=== PATIENT | male | born 1935 | race Caucasian/White ===

== ENCOUNTER → 2016-08-17 | Outpatient (CLI) | payer OTHER, MEDICARE | LOC: MMPC 09:00 | PROVIDERS: ATTEND Family Medicine | DX: R06.02 Shortness of breath (principal); R63.0 Anorexia | CPT/HCPCS: 99214; G0463 ==

== ENCOUNTER 2016-09-09 10:04 | Emergency (ER) | payer OTHER, MEDICARE ==
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
[2016-09-09 10:45] VITALS: RESP 16; TEMP 98.8
[2016-09-09 11:37] LABS: BASOPHILS # (AUTO) 0.03 10*3/UL; BASOPHILS % (AUTO) 0.6 % (0-1); EOSINOPHILS % (AUTO) 2.1 % (0-8); HEMATOCRIT 37.3 % (42.0-52.0); HEMOGLOBIN 12.9 g/dL (14.0-18.0); IMM GRAN % (AUTO) 0.2 % (0-5); IMM GRAN# (AUTO) 0.01 10*3/UL; LYMPHOCYTES % (AUTO) 12.5 % (10-50); MEAN CORPUSCULAR HEMOGLOBIN 28.7 PG (27-31); MEAN CORPUSCULAR HGB CONC 34.6 g/dL (33-37); MEAN PLATELET VOLUME 9.3 FL (7.4-12.2); MONOCYTES % (AUTO) 12.5 % (5-15); NEUTROPHILS # (AUTO) 3.47 10*3/UL; NEUTROPHILS % (AUTO) 72.1 % (50-80); RDW COEFFICIENT OF VARIATION 15.1 % (11.5-14.5); RED BLOOD COUNT 4.49 10^6/uL (4.70-6.10); WHITE BLOOD COUNT 4.81 10^3/uL (4.8-10.8)
[2016-09-09 11:38] LABS: PLATELET MORPHOLOGY COMMENT NORMAL MORPHOLOGY (NORM)
[2016-09-09 11:49] LABS: BUN/CREATININE RATIO 12.5 (6-20); CALCIUM 8.9 mg/dL (8.7-10.7); CREATININE 0.8 mg/dL (0.70-1.50); POTASSIUM 4.3 meq/L (3.8-5.2)
[2016-09-09 12:03] LABS: BILIRUBIN,URINE NEGATIVE (NEG); CLARITY,URINE CLEAR (CLEAR); GLUCOSE, URINE (UA) NEGATIVE (NEG); LEUKOCYTE ESTERASE ,URINE MODERATE (NEG); NITRATE,URINE NEGATIVE (NEG); OCCULT BLOOD,URINE LARGE (NEG); PROTEIN,URINE 100 mg/dl (NEG); UROBILINOGEN,URINE 0.2 mg/dL (0.2)
[2016-09-09 12:08] LABS: SQUAMOUS EPITHELIAL CELL,UR RARE; URINE SAMPLE TYPE CATH SPECIMEN; WBC,URINE 20-30
[2016-09-09 12:09] LABS: BACTERIA,URINE MODERATE
== END 2016-09-09 13:38 | disposition home or self-care (01) ==
LOC: ER 10:04
DX: T83.038A Leakage of other urinary catheter, initial encounter (principal); T83.84XA Pain due to genitourinary prosthetic devices, implants and grafts, initial encounter; R00.2 Palpitations; Z86.718 Personal history of other venous thrombosis and embolism; Z79.01 Long term (current) use of anticoagulants
CPT/HCPCS: 36415; 80048; 81001; 85025; 87077; 87088; 87185; 87186; 87205; 99282

== ENCOUNTER → 2016-10-05 | Outpatient (CLI) | payer OTHER, MEDICARE ==
[2016-10-05 11:26] LABS: BILIRUBIN,URINE NEGATIVE (NEG); CLARITY,URINE Slightly Clo (CLEAR); GLUCOSE, URINE (UA) NEGATIVE (NEG); LEUKOCYTE ESTERASE ,URINE LARGE (NEG); NITRATE,URINE NEGATIVE (NEG); OCCULT BLOOD,URINE LARGE (NEG); PH,URINE 8.5 (5.0-8.5); PROTEIN,URINE 30 mg/dl (NEG); UROBILINOGEN,URINE 0.2 mg/dL (0.2)
[2016-10-05 11:41] LABS: URINE SAMPLE TYPE CATH SPECIMEN
[2016-10-05 11:42] LABS: BACTERIA,URINE MANY; RBC,URINE 15-20 /hpf; URINE CRYSTALS MODERATE; WBC,URINE 45-50
== END ==
LOC: MOB LAB 10:08
PROVIDERS: ATTEND Family Medicine
DX: R30.0 Dysuria (principal); R82.99 Other abnormal findings in urine; Z46.6 Encounter for fitting and adjustment of urinary device
CPT/HCPCS: 51702 ×2; 81001; 87077; 87088; 87186 ×2; G0463

== ENCOUNTER 2016-10-10 17:48 | Inpatient (IN) | payer OTHER, MEDICARE ==
[2016-10-10] MEDS ORDERED: Sodium Chloride 0.9% 1,000 ML PRIMARY IV ONE (19:05)
--- NOTE | 2016-10-10 19:19 | EKG ---
[address] [place] [address] Measurements Intervals [place] Rate: 63 P: 76 OK: 239 QRS: -46 QRSD: 116 T: 90 QT: 449 QTc: 456 Interpretive Statements SINUS RHYTHM WITH FIRST DEGREE AV BLOCK LEFT ANTERIOR FASCICULAR BLOCK POSSIBLE INFERIOR MYOCARDIAL INFARCTION PROBABLY OLD MODERATE T-WAVE ABNORMALITY, CONSIDER ANTERIOR ISCHEMIA Compared to ECG 07/24/2016 11:53:24 First degree AV block now present Left anterior fascicular block now present Myocardial infarct finding now present T-wave abnormality now present Possible ischemia now present Electronically Signed On 10-11-16 19:35:24 [facility] by Panfilo Kwon [email or web address]
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
--- NOTE | 2016-10-10 19:43 | PDOC ---
History and Physical - History of Present Illness History of Present Illness: Is a very nice 80-year-old gentleman known to our service admitted for UTI sometime back over from EMS with altered mental status around 3:00 in the afternoon he started looking out the window at a neighbor was counseling snow dark perseveration of conversation his said he kept on repeating the same phrases he became very combative and required around 8 people to restrain him Ativan and Haldol and Benadryl during his transportation is which is the main caregiver says there is no fever or chills no nausea no vomiting no diarrhea 7 indwelling Mott catheter and I believe was scheduled to go see urology. In the ER or I saw him the patient appears calm at present time we are starting to untie his restrictions he is alert oriented 3, operating following commands and his physical exam is basically negative I believe most likely UTI with infection as a source of his combativeness and most likely deterioration and dementia. Past Medical History Medical History: 1. Arrhythmias. 2. Depression. 3. GERD. 4. History of DVTs years ago. 5. History of orthostatic hypertension. 6. History of gout. 7. Hypothyroidism. 8. BPH for which he had surgery. 9. Diagnosed with DVT on 05/06/2015. 10. Coronary artery disease with CABG June 2015, stent in August of this year. 11. Chronic catheterization since 06/12/2016 Surgical History: 1. History of for surgery on his shoulder. 2. History of prostate surgery. 3. Left knee replacement. 4. Left hip replacement. 5. Cholecystectomy. 6. Status post CABG June 2015 Pertinent Family History: States there is heart disease in the family. Past Social History: Does not smoke or drink. for 20 years with his current . Has 6 children from prior marriages. 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 Substance Use Type: None Medication / Allergies Home Medications: Home Medications Medication Instructions Recorded Confirmed Type Aspirin [Aspir 81] 81 mg PO DAILY tab 05/22/15 10/10/16 History Cholecalciferol (Vitamin D3) 2 tab PO QD tab 08/01/15 10/10/16 History [Vitamin D3] Potassium Chloride 1 cap PO QD cap 08/01/15 10/10/16 History Esomeprazole Magnesium [Nexium] 40 mg PO BID #60 cap 09/11/15 10/10/16 Clinic Nitroglycerin SL Tab [Nitrostat 0.4 mg SL as directed PRN #1 11/07/15 10/10/16 Clinic SL Tab] bottle NS Clopidogrel Bisulfate [Plavix] 75 mg PO DAILY 01/19/16 10/10/16 History L.acidoph & Paracasei,B.lactis 1 each PO DAILY 01/19/16 10/10/16 History [Probiotic] Levothyroxine Sodium 1 tab PO DAILY #90 tab 06/01/16 10/10/16 Clinic Tamsulosin HCl 1 cap PO DAILY #30 cap 06/11/16 10/10/16 Clinic Donepezil HCl [Aricept] 10 mg PO DAILY #30 tab 08/31/16 10/10/16 Clinic Alprazolam 1 tab PO QID #120 tab 09/16/16 10/10/16 Clinic Memantine HCl [Namenda Xr] 28 mg PO DAILY #30 cap 09/24/16 10/10/16 Clinic Zolpidem Tartrate [Ambien] 10 mg PO DAILY #30 tab 10/02/16 10/10/16 Clinic Citalopram Hydrobromide 2 tab PO QD #90 tab 10/05/16 10/10/16 Clinic [Citalopram Hbr] Allergies/Adverse Reactions: Allergies Allergy/AdvReac Type Severity Reaction Status Date / Time lisinopril Allergy Severe Anaphylaxis Verified 10/10/16 18:57 ciprofloxacin [From Cipro] Allergy Intermediate RASH Verified 10/10/16 18:57 fluoxetine HCl [From Prozac] Allergy Intermediate VOMITING Verified 10/10/16 18: 57 Penicillins Allergy Intermediate RASH Verified 10/10/16 18:57 rivaroxaban [From Xarelto] Allergy Intermediate multiple Verified 10/10/16 18:57 problems tomato Allergy Intermediate HIVES Verified 10/10/16 18:57 docosahexanoic ac Allergy Mild ITCHING Verified 10/10/16 18:57 *RETIRED-04/21/12 [From [place]-3 Fish Oil] sulfamethoxazole AdvReac Intermediate burning Verified 10/10/16 18:57 [From Bactrim] diarrhea in stomach and rectum went away stopping trimethoprim [From Bactrim] AdvReac Intermediate burning Verified 10/10/16 18:57 diarrhea in stomach and rectum went away stopping metoprolol AdvReac Mild SEVERE Verified 10/10/16 18:57 HYPOTENSION Review of Systems - Review of Systems All Systems: Reviewed & No Additional Complaints Except as Stated - Respiratory Respiratory: DENIES: Negative System Review, Cough, Sputum, Dyspnea At Rest, Dyspnea with Exertion, Pleuritic Pain, Hemoptysis, Wheezing, Other, See HPI - Cardiovascular Cardiovascular: DENIES: Negative System Review, Chest Pain, Edema, Syncope, Palpitations, Orthopnea, Paroxysmal Nocturnal Dyspnea, Other, See HPI - Neurological Neurologic: REPORTS: Confusion Exam - Vitals Vital Signs: Vital Signs Height 5 ft 10 in Weight 86.183 kg - General General Appearance: POSITIVE: No Acute Distress, Cooperative - Head Head Exam: POSITIVE: Normal Inspection, Normocephalic, Atraumatic - Eye Eye Exam: POSITIVE: PERRL, EOMI - Respiratory Respiratory Exam: POSITIVE: Clear to Auscultation - Bilaterally, Breathing Non Labored, Normal To Percussion - Cardiovascular Cardiovascular Exam: POSITIVE: RRR, No Murmur, No Clicks - GI/Abdominal GI/Abdominal Exam: POSITIVE: Non Tender, Non Distended, Soft - Extremities Extremities Exam: POSITIVE: Normal Capillary Refill, No Clubbing Present, No Edema Present - Neurological Neurological Exam: POSITIVE: Alert, Oriented x 3, CN II-XII Intact, No Facial Droop, Speech Intact / Clear Results - Labs CBC and BMP: 10/11/16 08:53 10/11/16 08:53 Assessment and Plan - Patient Problems (1) UTI (urinary tract infection) Current Visit: No Status: Acute Comment: Patient had enterococcus growing out of his last culture will start levofloxacin IV (2) Altered mental status Current Visit: Yes Status: Acute Comment: will watch patient all labs no acute findings cont tele mri on wednesday ct head negative improved now (3) Anxiety Current Visit: No Status: Acute Comment: By mouth Xanax (4) Prostatic hypertrophy Current Visit: No Status: Acute Comment: Continue Mott catheter continue usual meds (5) Urinary retention due to benign prostatic hyperplasia Current Visit: No Status: Acute (6) Hyponatremia syndrome Current Visit: Yes Status: Acute Comment: Gentle hydration
[2016-10-10 19:47] LABS: BASOPHILS # (AUTO) 0.05 10*3/UL; BASOPHILS % (AUTO) 0.9 % (0-1); EOSINOPHILS % (AUTO) 2.6 % (0-8); HEMATOCRIT 36.9 % (42.0-52.0); IMM GRAN % (AUTO) 0.2 % (0-5); IMM GRAN# (AUTO) 0.01 10*3/UL; LYMPHOCYTES # (AUTO) 0.55 10*3/uL; LYMPHOCYTES % (AUTO) 9.4 % (10-50); MEAN CORPUSCULAR HEMOGLOBIN 29.4 PG (27-31); MEAN CORPUSCULAR HGB CONC 35.2 g/dL (33-37); MEAN PLATELET VOLUME 9.2 FL (7.4-12.2); MONOCYTES # (AUTO) 0.47 10*3/UL (0.3-0.8); NEUTROPHILS # (AUTO) 4.65 10*3/UL; NEUTROPHILS % (AUTO) 78.9 % (50-80); RDW COEFFICIENT OF VARIATION 13.8 % (11.5-14.5); RED BLOOD COUNT 4.42 10^6/uL (4.70-6.10); WHITE BLOOD COUNT 5.88 10^3/uL (4.8-10.8)
[2016-10-10 19:57] LABS: PROTHROMBIN TIME 12.4 secs (9.7-11.4)
[2016-10-10] MEDS ORDERED: cefTRIAXone Inj 2 GM in Sodium Chloride 0.9% 100 ML IV SCH (20:00)
[2016-10-10 20:02] LABS: BILIRUBIN,TOTAL 0.7 mg/dL (0.3-1.2); BUN/CREATININE RATIO 12.5 (6-20); C-REACTIVE PROTEIN 0.7 mg/dL (0.0-0.9); CALCIUM 8.7 mg/dL (8.7-10.7); CREATININE 0.8 mg/dL (0.70-1.50); MAGNESIUM 2.1 mg/dL (1.6-2.4)
[2016-10-10 20:16] LABS: PLATELET MORPHOLOGY COMMENT NORMAL MORPHOLOGY (NORM)
[2016-10-10 20:24] LABS: BILIRUBIN,URINE NEGATIVE (NEG); CLARITY,URINE Slightly Clo (CLEAR); GLUCOSE, URINE (UA) NEGATIVE (NEG); LEUKOCYTE ESTERASE ,URINE MODERATE (NEG); NITRATE,URINE POSITIVE (NEG); OCCULT BLOOD,URINE MODERATE (NEG); PROTEIN,URINE 30 mg/dl (NEG); UROBILINOGEN,URINE 0.2 EU/dL (0.2)
[2016-10-10 20:29] LABS: URINE SAMPLE TYPE CATH SPECIMEN
[2016-10-10 20:36] LABS: FREE T4 (FREE THYROXINE) 1.63 ng/dL (0.93-1.71)
[2016-10-10 20:36] LABS: BACTERIA,URINE MODERATE; CANNABINOID SCREEN,URINE NEGATIVE (NEG); COCAINE SCREEN NEGATIVE (NEG); METHAMPHETAMINES SCREEN,URINE NEGATIVE (NEG); SQUAMOUS EPITHELIAL CELL,UR RARE
--- NOTE | 2016-10-10 20:54 | DI ---
HISTORY: Altered mental status. TECHNIQUE: Contiguous axial images of the brain were obtained and submitted for interpretation. FINDINGS: There is senescent change with atrophy. There is no acute infarct, intracranial hemorrhag e, or mass effect. There is no hydrocephalus, or significant midline shift. The basilar tip appears slightly bulbous. Recommend correlation with CTA where appropriate to rule out aneurysm of the basi lar tip. There is a tiny subcentimeter lacunar infarct in the left thalamus which is probably chroni c. The visualized paranasal sinuses and mastoids appear relatively well-aerated. IMPRESSION: 1. No intracranial hemorrhage. MRI is recommended if clinical symptoms persist.
[2016-10-10 20:56] LABS: ERYTHROCYTE SEDIMENTATION RATE 3 MM/HR (0-15)
[2016-10-10] MEDS ORDERED: Sodium Chloride 0.9% 1,000 ML IV SCH (22:15)
[2016-10-10] MEDS ORDERED: BISACODYL 5 MG TABLET PO PRN (22:29)
[2016-10-10] MEDS ORDERED: ONDANSETRON 4 MG/2 ML VIAL IVP PRN (22:29)
[2016-10-10] MEDS ORDERED: HYDROcodone-APAP 5 MG -325 MG TABLET PO PRN (22:29)
[2016-10-10] MEDS: predniSONE 5 MG TABLET PO SCH (23:24)
[2016-10-10] MEDS: ALPRAZolam Tab 0.25 MG TABLET PO SCH (23:24)
[2016-10-10] MEDS: QUEtiapine Tab 100 MG TAB PO SCH (23:25)
[2016-10-10] MEDS: MAGNESIUM 400 MG/5 ML - 30 ML (MILK OF MAGNESIA) PO PRN (23:25)
[2016-10-10] MEDS: HEPARIN 5000 UNIT/1 ML SUBCUT SCH (23:25)
[2016-10-10] MEDS: Sodium Chloride 0.9% 1,000 ML PRIMARY IV SCH (23:30)
[2016-10-11] MEDS: LEVOTHYROXINE 75 MCG TABLET PO SCH (06:00)
[2016-10-11] MEDS: HEPARIN 5000 UNIT/1 ML SUBCUT SCH ×3 (07:16→23:55)
[2016-10-11] MEDS: predniSONE 5 MG TABLET PO SCH ×2 (07:16→16:56)
[2016-10-11] MEDS: Sodium Chloride 0.9% 1,000 ML PRIMARY IV SCH (07:20)
[2016-10-11 09:00] LABS: BASOPHILS # (AUTO) 0.03 10*3/UL; BASOPHILS % (AUTO) 0.6 % (0-1); EOSINOPHILS % (AUTO) 0.4 % (0-8); HEMATOCRIT 37.5 % (42.0-52.0); HEMOGLOBIN 13.4 g/dL (14.0-18.0); IMM GRAN % (AUTO) 0.2 % (0-5); IMM GRAN# (AUTO) 0.01 10*3/UL; LYMPHOCYTES # (AUTO) 0.39 10*3/uL; LYMPHOCYTES % (AUTO) 8.1 % (10-50); MEAN CORPUSCULAR HEMOGLOBIN 29.8 PG (27-31); MEAN CORPUSCULAR HGB CONC 35.7 g/dL (33-37); MEAN PLATELET VOLUME 9.6 FL (7.4-12.2); MONOCYTES # (AUTO) 0.39 10*3/UL (0.3-0.8); MONOCYTES % (AUTO) 8.1 % (5-15); NEUTROPHILS % (AUTO) 82.6 % (50-80); RDW COEFFICIENT OF VARIATION 13.9 % (11.5-14.5); WHITE BLOOD COUNT 4.84 10^3/uL (4.8-10.8)
[2016-10-11 09:10] LABS: BILIRUBIN,TOTAL 0.6 mg/dL (0.3-1.2); CALCIUM 8.6 mg/dL (8.7-10.7); CREATININE 0.7 mg/dL (0.70-1.50); POTASSIUM 4.5 meq/L (3.8-5.2); TOTAL PROTEIN 6.1 g/dL (6.1-8.0)
[2016-10-11 09:12] LABS: PLATELET MORPHOLOGY COMMENT NORMAL MORPHOLOGY (NORM)
[2016-10-11] MEDS: ASPIRIN EC 81 MG TABLET PO SCH (09:30)
[2016-10-11] MEDS: TAMSULOSIN 0.4 MG CAPSULE PO SCH (09:30)
[2016-10-11] MEDS: ALPRAZolam Tab 0.25 MG TABLET PO SCH ×4 (09:30→20:24)
[2016-10-11] MEDS: CLOPIDOGREL 75 MG TABLET PO SCH (09:30)
[2016-10-11] MEDS: FINASTERIDE 5 MG TABLET PO SCH (09:30)
[2016-10-11] MEDS: DONEPEZIL 5 MG TABLET PO SCH (09:30)
[2016-10-11] MEDS: CITALOPRAM 20 MG TABLET PO SCH (09:30)
[2016-10-11] MEDS: MEMANTINE HCL 28 MG PO SCH (09:31)
[2016-10-11] MEDS: Levofloxacin 750mg (Premix) 750 MG in Dextrose 1 BAG IV SCH (11:01)
--- NOTE | 2016-10-11 12:07 | PDOC(PROG) ---
Interval History: Patient is doing much better today is back to his normal self is not confused and is not combative splinting to the patient most likely has a recurrent UTI and is being treated with antibiotics we will await cultures of his urine and blood cultures as well Objective : Data - Labs CBC and BMP: 10/11/16 08:53 10/11/16 08:53 Labs - Last 24 Hours: Laboratory Results 10/10/16 10/10/16 10/11/16 Range/Units 19:43 22:30 08:53 WBC 5.88 4.84 (4.8-10.8) 10^3/uL RBC 4.42 L 4.50 L (4.70-6.10) 10^6/uL Hgb 13.0 L 13.4 L (14.0-18.0) g/dL Hct 36.9 L 37.5 L (42.0-52.0) % MCV 83.5 83.3 (80-90) FL MCH 29.4 29.8 (27-31) PG MCHC 35.2 35.7 (33-37) g/dL RDW Std Deviation 41.5 41.3 (39-50) fL RDW Coeff of Dio 13.8 13.9 (11.5-14.5) % Plt Count 133 L 135 L (140-350) 10*3/uL MPV 9.2 9.6 (7.4-12.2) FL Immature Gran % (Auto) 0.2 0.2 (0-5) % Neut % (Auto) 78.9 82.6 H (50-80) % Lymph % (Auto) 9.4 L 8.1 L (10-50) % [place] % (Auto) 8.0 8.1 (5-15) % Eos % (Auto) 2.6 0.4 (0-8) % Baso % (Auto) 0.9 0.6 (0-1) % Immature Gran # (Auto) 0.01 0.01 10*3/UL Neut # (Auto) 4.65 4.00 10*3/UL Lymph # (Auto) 0.55 0.39 10*3/uL [place] # (Auto) 0.47 0.39 (0.3-0.8) 10*3/UL Eos # (Auto) 0.15 0.02 10*3/UL Baso # (Auto) 0.05 0.03 10*3/UL WBC Morphology Comment See comments Normal morphology (NORM) Plt Morphology Comment Normal morphology Normal morphology (NORM) RBC Morph Comment Normal morphology Normal morphology (NORM) ESR 3 (0-15) MM/HR PT 12.4 H (9.7-11.4) secs INR 1.20 (0.00-5.90) N/A Sodium 126 L 131 L (135-145) meq/L Potassium 4.0 4.5 (3.8-5.2) meq/L Chloride 96 L 100 (98-112) meq/L Carbon Dioxide 21 L 22 L (23-33) meq/L Anion Gap 9 9 (5-20) BUN 10 7 (7-22) mg/dL Creatinine 0.8 0.7 (0.70-1.50) mg/dL Estimated GFR (>60 ml/min/1.73m(2)) BUN/Creatinine Ratio 12.50 10.00 (6-20) Glucose 99 116 H (78-110) mg/dL Calculated Osmolality 260.0 L 270.0 (267-292) mOsm/kg Calcium 8.7 8.6 L (8.7-10.7) mg/dL Magnesium 2.1 (1.6-2.4) mg/dL Total Bilirubin 0.7 0.6 (0.3-1.2) mg/dL AST 36 29 (21-57) IU/L ALT 32 36 (21-72) IU/L Alkaline Phosphatase 159 H 180 H (38-126) IU/L Troponin I 0.016 (< 0.040) ng/mL C-Reactive Protein 0.7 (0.0-0.9) mg/dL Total Protein 6.0 L 6.1 (6.1-8.0) g/dL Albumin 3.5 3.4 L (3.5-4.8) g/dL Globulin 2.5 2.7 (2.50-4.10) g/dL Albumin/Globulin Ratio 1.40 1.20 L (1.3-2.0) mg/g TSH 1.11 (0.2700-4.2000) uIU/mL Free T4 1.63 (0.93-1.71) ng/dL Serum Alcohol 10 (0-10) mg/dL Objective : Exam - General General Appearance: Cooperative - Head Head Exam: Normal Inspection - Neck Neck Exam: Normal Inspection - Respiratory Respiratory Exam: Clear to Auscultation - Bilaterally, Breathing Non Labored, Normal To Percussion - Cardiovascular Cardiovascular Exam: RRR, No Murmur, No Clicks, No Gallops - GI/Abdominal GI/Abdominal Exam: Normal Bowel Sounds, Non Tender, Soft - Extremities Extremities Exam: No Clubbing Present, No Edema Present Assessment and Plan - Patient Problems (1) UTI (urinary tract infection) Current Visit: No Status: Acute Comment: Continue with Levaquin patient's last culture was enteral coccus is allergic to penicillins and Cipro but he is tolerating the Levaquin well (2) Altered mental status Current Visit: Yes Status: Acute Comment: Most likely secondary to UTI we'll check MRI in the morning of head (3) Anxiety Current Visit: No Status: Acute Comment: Continue current meds (4) Prostatic hypertrophy Current Visit: No Status: Acute Comment: Continue Mott he has to wear this still may before he can get his operation because he still on Plavix (5) Urinary retention due to benign prostatic hyperplasia Current Visit: No Status: Acute (6) Hyponatremia syndrome Current Visit: Yes Status: Acute Comment: resolved
--- NOTE | 2016-10-11 14:24 | DI ---
AP CHEST X-RAY, 10/10/2016 7:05 PM : Clinical History: Acute mental status change. Previous Exam: 07/03/2016. There is no acute soft tissue or bony abnormality. The patient is status post median sternotomy. The heart size is normal. Lungs are clear. Mediastinal structures are normal. There are no pulmonary nodu les. Reading: Normal chest x-ray. There has been no interval change.
[2016-10-11] MEDS: QUEtiapine Tab 100 MG TAB PO SCH (20:24)
[2016-10-12] MEDS: LEVOTHYROXINE 75 MCG TABLET PO SCH (05:47)
[2016-10-12] MEDS: predniSONE 5 MG TABLET PO SCH ×2 (06:40→16:50)
[2016-10-12] MEDS: HEPARIN 5000 UNIT/1 ML SUBCUT SCH ×2 (06:42→15:51)
[2016-10-12] MEDS: TAMSULOSIN 0.4 MG CAPSULE PO SCH (08:36)
[2016-10-12] MEDS: CLOPIDOGREL 75 MG TABLET PO SCH (08:36)
[2016-10-12] MEDS: DONEPEZIL 5 MG TABLET PO SCH (08:36)
[2016-10-12] MEDS: CITALOPRAM 20 MG TABLET PO SCH (08:36)
[2016-10-12] MEDS: FINASTERIDE 5 MG TABLET PO SCH (08:37)
[2016-10-12] MEDS: ALPRAZolam Tab 0.25 MG TABLET PO SCH ×4 (08:37→20:18)
[2016-10-12] MEDS: ASPIRIN EC 81 MG TABLET PO SCH (08:37)
[2016-10-12] MEDS: Levofloxacin 750mg (Premix) 750 MG in Dextrose 1 BAG IV SCH (08:39)
[2016-10-12] MEDS: MEMANTINE HCL 28 MG PO SCH (08:40)
[2016-10-12] MEDS ORDERED: Levofloxacin 750mg (Premix) 750 MG in Dextrose 1 BAG IV SCH (09:00)
--- NOTE | 2016-10-12 09:10 | DI ---
MRI BRAIN SCAN WITHOUT CONTRAST, 10/12/2016 7:00 AM: Clinical History: Altered mental status. Previous Exam: None at this facility. Sequences: Sagittal T1; Axial KALE T2 and FLAIR. Axial diffusion weighted images with ADC mapping were also performed. The 4th, 3rd, and lateral ventricles are of normal size, shape, and contour for this patient's age. 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 There are multiple punctate periventricular white matter hyperintensities bilaterally that ext end into the watershed territory, consistent with small vessel ischemic disease. This amount of ische jaiden disease is appropriate for the patient's age. There is no evidence of an acute hemorrhagic or dinh nd infarct. No old infarct is identified but there is more localized atrophy involving the left cereb ral hemisphere compared to the right side particularly in the region of the frontal and parietal oper cula as well as the insular cortex. The third and lateral ventricles are displaced slightly to the ri ght of midline, but there is no effacement of the cortical sulci in the left hemisphere to suggest th ere is an extra-axial mass to cause this displacement. In addition, the thickness of the left tempora l bone is almost 3 times that of the right side suggesting this focal atrophic change is of long-merry ding duration, possibly congenital. The right cerebral hemisphere demonstrates mild to moderate cereb ral atrophy. Diffusion weighted imaging with ADC mapping is otherwise normal. There are no extracereb ral mantels. The paranasal sinuses are normal. Readin. Small vessel ischemic disease. There is no acute hemorrhagic or bland infarct. No evidence of an old infarct is seen in the left hemisphere. 2. Asymmetric atrophic change is noted. There is mild to moderate right-sided cerebral atrophy, but there is severe left cerebral hemispheric atrophy that is most prominent in the region of the left in sular cortex and the left frontal and parietal opercula. There is no effacement of the sulci in the l eft hemisphere to suggest presence of a chronic subdural hematoma or hygroma. The left temporal bone is significantly thicker than the right temporal bone suggesting this process involving the left mandi sphere is of a long-standing duration, possibly congenital. 3. Tata-cisterna magna, a normal variant.
--- NOTE | 2016-10-12 12:36 | PDOC(PROG) ---
Interval History: We were getting ready to to discharge the patient today since he is doing so much better and he is not confused or combative but the his came and got me patient has seems to be perseverating a little bit with the saying I don't want to go home I want to stay here is not oriented to place and his does not feel comfortable taking him home. He has no complaints of pain Objective : Data - Labs CBC and BMP: 10/11/16 08:53 10/11/16 08:53 Objective : Exam - General General Appearance: Cooperative - Head Head Exam: Normal Inspection - Respiratory Respiratory Exam: Clear to Auscultation - Bilaterally, Breathing Non Labored, Normal To Percussion, Normal to Percussion and Palpation - Cardiovascular Cardiovascular Exam: RRR, No Gallops, No Rubs - GI/Abdominal GI/Abdominal Exam: Normal Bowel Sounds, Soft - Extremities Extremities Exam: No Clubbing Present, No Edema Present Assessment and Plan - Patient Problems (1) UTI (urinary tract infection) Current Visit: No Status: Acute Comment: I will stop the levofloxacin in case this is making him confused which I don't believe because he was not on levofloxacin before I will switch him over to linezolid to cover is a Enterobacter in the urine (2) Altered mental status Current Visit: Yes Status: Acute Comment: MRI shows no stroke but a lot of atrophy this can definitely be increased dementia I will increase the Seroquel dose to 50 twice a day this seems to be helping (3) Anxiety Current Visit: No Status: Acute Comment: Increase Seroquel (4) Prostatic hypertrophy Current Visit: No Status: Acute Comment: Stable (5) Urinary retention due to benign prostatic hyperplasia Current Visit: No Status: Acute (6) Hyponatremia syndrome Current Visit: Yes Status: Acute Comment: Resolved
[2016-10-12] MEDS: LINEZOLID IV SCH (13:04)
--- NOTE | 2016-10-12 17:10 | OT.PROG ---
Progress Note Progress Note: Occupational Therapy: OT attempted to go evaluate patient. His refused to let pt. talk and refused all therapies. OT did discuss the benefits of therapy. Recommended to nursing and patient's to encourage walking as much as possible. OT will just check daily to see if pt. and/or would like therapy while in the hospital. At this time his was adamant about no therapy as of today. Thank you. Maryam Nguyen, OTR/L
[2016-10-12 17:49] LABS: BILIRUBIN,TOTAL 0.7 mg/dL (0.3-1.2); BUN/CREATININE RATIO 15.71 (6-20); CREATININE 0.7 mg/dL (0.70-1.50); POTASSIUM 4.1 meq/L (3.8-5.2); TOTAL PROTEIN 6.4 g/dL (6.1-8.0)
[2016-10-12] MEDS ORDERED: FUROSEMIDE 10 MG/1 ML - 4 ML IVP ONE (18:14)
[2016-10-12] MEDS: MAGNESIUM 400 MG/5 ML - 30 ML (MILK OF MAGNESIA) PO PRN (20:18)
[2016-10-12] MEDS ORDERED: QUEtiapine Tab 25 MG TAB PO SCH (21:00)
[2016-10-12] MEDS: QUEtiapine Tab 25 MG TAB PO SCH (21:51)
[2016-10-12] MEDS ORDERED: QUEtiapine Tab 25 MG TAB PO ONE (22:00)
[2016-10-13] MEDS: HEPARIN 5000 UNIT/1 ML SUBCUT SCH ×3 (01:19→15:55)
[2016-10-13] MEDS: LINEZOLID IV SCH ×2 (02:11→12:25)
[2016-10-13] MEDS: LEVOTHYROXINE 75 MCG TABLET PO SCH (05:44)
[2016-10-13 06:06] LABS: BASOPHILS # (AUTO) 0.01 10*3/UL; BASOPHILS % (AUTO) 0.1 % (0-1); EOSINOPHILS % (AUTO) 0.1 % (0-8); HEMATOCRIT 42.7 % (42.0-52.0); HEMOGLOBIN 14.9 g/dL (14.0-18.0); IMM GRAN % (AUTO) 0.1 % (0-5); IMM GRAN# (AUTO) 0.01 10*3/UL; LYMPHOCYTES % (AUTO) 10.4 % (10-50); MEAN CORPUSCULAR HEMOGLOBIN 29.3 PG (27-31); MEAN CORPUSCULAR HGB CONC 34.9 g/dL (33-37); MEAN PLATELET VOLUME 9.9 FL (7.4-12.2); MONOCYTES # (AUTO) 0.51 10*3/UL (0.3-0.8); MONOCYTES % (AUTO) 7.6 % (5-15); NEUTROPHILS # (AUTO) 5.51 10*3/UL; NEUTROPHILS % (AUTO) 81.7 % (50-80); RDW COEFFICIENT OF VARIATION 14.1 % (11.5-14.5); RED BLOOD COUNT 5.09 10^6/uL (4.70-6.10); WHITE BLOOD COUNT 6.75 10^3/uL (4.8-10.8)
[2016-10-13 06:15] LABS: BILIRUBIN,TOTAL 0.8 mg/dL (0.3-1.2); BUN/CREATININE RATIO 12.22 (6-20); CALCIUM 9.4 mg/dL (8.7-10.7); CREATININE 0.9 mg/dL (0.70-1.50); POTASSIUM 4.1 meq/L (3.8-5.2); TOTAL PROTEIN 6.8 g/dL (6.1-8.0)
[2016-10-13 06:16] LABS: PLATELET MORPHOLOGY COMMENT NORMAL MORPHOLOGY (NORM)
[2016-10-13] MEDS: predniSONE 5 MG TABLET PO SCH ×2 (06:38→16:05)
[2016-10-13] MEDS: MEMANTINE HCL 28 MG PO SCH (08:34)
[2016-10-13] MEDS: CLOPIDOGREL 75 MG TABLET PO SCH (08:34)
[2016-10-13] MEDS: FINASTERIDE 5 MG TABLET PO SCH (08:35)
[2016-10-13] MEDS: DONEPEZIL 5 MG TABLET PO SCH (08:35)
[2016-10-13] MEDS: ALPRAZolam Tab 0.25 MG TABLET PO SCH ×4 (08:35→20:38)
[2016-10-13] MEDS: TAMSULOSIN 0.4 MG CAPSULE PO SCH (08:36)
[2016-10-13] MEDS: QUEtiapine Tab 25 MG TAB PO SCH ×3 (08:37→20:38)
[2016-10-13] MEDS: ASPIRIN EC 81 MG TABLET PO SCH (08:37)
[2016-10-13] MEDS: CITALOPRAM 20 MG TABLET PO SCH (08:42)
[2016-10-13] MEDS ORDERED: FUROSEMIDE 10 MG/1 ML - 4 ML IVP ONE (09:13)
[2016-10-13] MEDS: NORMAL SALINE 10 ML SYRINGE FLUSH IVP PRN (10:03)
[2016-10-13] MEDS ORDERED: QUEtiapine Tab 25 MG TAB PO SCH (12:10)
--- NOTE | 2016-10-13 13:06 | PDOC(PROG) ---
Interval History: Patient seems to be doing a little better this morning from his mental standpoint I believe his dementia is getting worse with behavioral changes has decided that he she is unable to take care of him and will need placement she has no complaints and dumping the water container on his bed Objective : Data - Labs CBC and BMP: 10/13/16 05:42 10/13/16 05:42 Labs - Last 24 Hours: Laboratory Results 10/12/16 10/13/16 Range/Units 17:38 05:42 WBC 6.75 (4.8-10.8) 10^3/uL RBC 5.09 (4.70-6.10) 10^6/uL Hgb 14.9 (14.0-18.0) g/dL Hct 42.7 (42.0-52.0) % MCV 83.9 (80-90) FL MCH 29.3 (27-31) PG MCHC 34.9 (33-37) g/dL RDW Std Deviation 42.5 (39-50) fL RDW Coeff of Dio 14.1 (11.5-14.5) % Plt Count 166 (140-350) 10*3/uL MPV 9.9 (7.4-12.2) FL Immature Gran % (Auto) 0.1 (0-5) % Neut % (Auto) 81.7 H (50-80) % Lymph % (Auto) 10.4 (10-50) % [facility] % (Auto) 7.6 (5-15) % Eos % (Auto) 0.1 (0-8) % Baso % (Auto) 0.1 (0-1) % Immature Gran # (Auto) 0.01 10*3/UL Neut # (Auto) 5.51 10*3/UL Lymph # (Auto) 0.70 10*3/uL [facility] # (Auto) 0.51 (0.3-0.8) 10*3/UL Eos # (Auto) 0.01 10*3/UL Baso # (Auto) 0.01 10*3/UL WBC Morphology Comment Normal morphology (NORM) Plt Morphology Comment Normal morphology (NORM) RBC Morph Comment Normal morphology (NORM) Sodium 127 L 131 L (135-145) meq/L Potassium 4.1 4.1 (3.8-5.2) meq/L Chloride 95 L 94 L (98-112) meq/L Carbon Dioxide 23 28 (23-33) meq/L Anion Gap 9 9 (5-20) BUN 11 11 (7-22) mg/dL Creatinine 0.7 0.9 (0.70-1.50) mg/dL Estimated GFR (>60 ml/min/1.73m(2)) BUN/Creatinine Ratio 15.71 12.22 (6-20) Glucose 114 H 91 (78-110) mg/dL Calculated Osmolality 263.0 L 270.0 (267-292) mOsm/kg Calcium 9.0 9.4 (8.7-10.7) mg/dL Magnesium 2.0 (1.6-2.4) mg/dL Total Bilirubin 0.7 0.8 (0.3-1.2) mg/dL AST 21 32 (21-57) IU/L ALT 35 37 (21-72) IU/L Alkaline Phosphatase 177 H 160 H (38-126) IU/L Total Protein 6.4 6.8 (6.1-8.0) g/dL Albumin 3.8 3.9 (3.5-4.8) g/dL Globulin 2.6 2.8 (2.50-4.10) g/dL Albumin/Globulin Ratio 1.40 1.30 (1.3-2.0) mg/g TSH 0.993 (0.2700-4.2000) uIU/mL Objective : Exam - General General Appearance: Cooperative - Eye Eye Exam: Normal Appearance - Respiratory Respiratory Exam: Clear to Auscultation - Bilaterally, Breathing Non Labored, Normal To Percussion - Cardiovascular Cardiovascular Exam: RRR, No Murmur, No Clicks - GI/Abdominal GI/Abdominal Exam: Non Distended, Soft - Extremities Extremities Exam: No Clubbing Present, No Edema Present - Neurological Neurological Exam: Alert, Oriented x 3, No Facial Droop, Speech Intact / Clear - Psychiatric Additional Psychiatric Exam Details: Behavioral changes Assessment and Plan - Patient Problems (1) UTI (urinary tract infection) Current Visit: No Status: Acute Comment: Continue current medication (2) Altered mental status Current Visit: Yes Status: Acute Comment: Most likely from worsening dementia with behavioral changes I visited over the phone with Dr. Carr which agreed with treatment with Seroquel we increased the dose to 50 twice a day (3) Anxiety Current Visit: No Status: Acute Comment: Seroquel 50 twice a day (4) Prostatic hypertrophy Current Visit: No Status: Acute Comment: Has Mott catheter in (5) Urinary retention due to benign prostatic hyperplasia Current Visit: No Status: Acute (6) Hyponatremia syndrome Current Visit: Yes Status: Acute Comment: Resolved
[2016-10-13] MEDS ORDERED: ALPRAZolam Tab 1 MG TABLET PO ONE (20:35)
[2016-10-14] MEDS: HEPARIN 5000 UNIT/1 ML SUBCUT SCH ×3 (00:47→16:12)
[2016-10-14] MEDS: NORMAL SALINE 10 ML SYRINGE FLUSH IVP PRN ×2 (00:50→11:54)
[2016-10-14] MEDS: LINEZOLID IV SCH ×2 (00:50→12:45)
[2016-10-14] MEDS: LEVOTHYROXINE 75 MCG TABLET PO SCH (06:10)
[2016-10-14] MEDS: predniSONE 5 MG TABLET PO SCH ×2 (06:53→16:49)
[2016-10-14] MEDS: CLOPIDOGREL 75 MG TABLET PO SCH (08:55)
[2016-10-14] MEDS: CITALOPRAM 20 MG TABLET PO SCH (08:55)
[2016-10-14] MEDS: DONEPEZIL 5 MG TABLET PO SCH (08:55)
[2016-10-14] MEDS: ASPIRIN EC 81 MG TABLET PO SCH (08:56)
[2016-10-14] MEDS: QUEtiapine Tab 25 MG TAB PO SCH ×2 (08:56→21:07)
[2016-10-14] MEDS: FINASTERIDE 5 MG TABLET PO SCH (08:56)
[2016-10-14] MEDS: TAMSULOSIN 0.4 MG CAPSULE PO SCH (08:56)
[2016-10-14] MEDS: MEMANTINE HCL 28 MG PO SCH (09:02)
[2016-10-14] MEDS: ALPRAZolam Tab 0.25 MG TABLET PO SCH ×4 (09:51→21:07)
[2016-10-14 10:16] LABS: HEMATOCRIT 41.9 % (42.0-52.0); HEMOGLOBIN 14.5 g/dL (14.0-18.0); MEAN CORPUSCULAR HEMOGLOBIN 29.1 PG (27-31); MEAN CORPUSCULAR HGB CONC 34.6 g/dL (33-37); MEAN PLATELET VOLUME 9.8 FL (7.4-12.2); RDW COEFFICIENT OF VARIATION 14.1 % (11.5-14.5); RED BLOOD COUNT 4.98 10^6/uL (4.70-6.10); WHITE BLOOD COUNT 7.07 10^3/uL (4.8-10.8)
[2016-10-14 10:25] LABS: BILIRUBIN,TOTAL 0.8 mg/dL (0.3-1.2); BUN/CREATININE RATIO 17.14 (6-20); CALCIUM 9.2 mg/dL (8.7-10.7); CREATININE 0.7 mg/dL (0.70-1.50); POTASSIUM 3.9 meq/L (3.8-5.2); TOTAL PROTEIN 6.7 g/dL (6.1-8.0)
[2016-10-14 10:32] LABS: PLATELET MORPHOLOGY COMMENT NORMAL MORPHOLOGY (NORM)
[2016-10-14 10:33] LABS: BAND NEUTROPHILS % 1 % (0-10); BASOPHILS % (MANUAL) 1 % (0-1); EOSINOPHILS % (MANUAL) 0 % (0-8); LYMPHOCYTES % (MANUAL) 12 % (10-50); MONOCYTES % (MANUAL) 7 % (0-12); NEUTROPHILS % (MANUAL) 79 % (50-80)
[2016-10-14] MEDS ORDERED: FUROSEMIDE 10 MG/1 ML - 4 ML IVP ONE (11:25)
--- NOTE | 2016-10-14 11:30 | PDOC(PROG) ---
Interval History: Patient is not as combative and behavioral changes have improved with the seroquel 50 twice a day has no complaints is in the room he answers questions does not wish to go home and I told him we are looking for placement for him he agrees I spoke to the and she said she is unable to take care of him any longer Objective : Data - Labs CBC and BMP: 10/14/16 09:45 10/14/16 09:45 Labs - Last 24 Hours: Laboratory Results 10/14/16 Range/Units 09:45 WBC 7.07 (4.8-10.8) 10^3/uL RBC 4.98 (4.70-6.10) 10^6/uL Hgb 14.5 (14.0-18.0) g/dL Hct 41.9 L (42.0-52.0) % MCV 84.1 (80-90) FL MCH 29.1 (27-31) PG MCHC 34.6 (33-37) g/dL RDW Std Deviation 43.1 (39-50) fL RDW Coeff of Dio 14.1 (11.5-14.5) % Plt Count 160 (140-350) 10*3/uL MPV 9.8 (7.4-12.2) FL Neutrophils % (Manual) 79 (50-80) % Band Neutrophils % 1 (0-10) % Lymphocytes % (Manual) 12 (10-50) % Monocytes % (Manual) 7 (0-12) % Eosinophils % (Manual) 0 (0-8) % Basophils % (Manual) 1 (0-1) % Metamyelocytes % Not Reportable Myelocytes % Not Reportable Promyelocytes % Not Reportable Blast Cells Not Reportable WBC Morphology Comment Normal morphology (NORM) Plt Morphology Comment Normal morphology (NORM) RBC Morph Comment Normal morphology (NORM) Sodium 127 L (135-145) meq/L Potassium 3.9 (3.8-5.2) meq/L Chloride 90 L (98-112) meq/L Carbon Dioxide 27 (23-33) meq/L Anion Gap 10 (5-20) BUN 12 (7-22) mg/dL Creatinine 0.7 (0.70-1.50) mg/dL Estimated GFR (>60 ml/min/1.73m(2)) BUN/Creatinine Ratio 17.14 (6-20) Glucose 84 (78-110) mg/dL Calculated Osmolality 262.0 L (267-292) mOsm/kg Calcium 9.2 (8.7-10.7) mg/dL Total Bilirubin 0.8 (0.3-1.2) mg/dL AST 46 (21-57) IU/L ALT 45 (21-72) IU/L Alkaline Phosphatase 159 H (38-126) IU/L Total Protein 6.7 (6.1-8.0) g/dL Albumin 4.0 (3.5-4.8) g/dL Globulin 2.7 (2.50-4.10) g/dL Albumin/Globulin Ratio 1.40 (1.3-2.0) mg/g Objective : Exam - General General Appearance: Cooperative - Respiratory Respiratory Exam: Clear to Auscultation - Bilaterally, Breathing Non Labored, Normal To Percussion, Normal to Percussion and Palpation - Cardiovascular Cardiovascular Exam: RRR, No Murmur, No Clicks, No Gallops - GI/Abdominal GI/Abdominal Exam: Normal Bowel Sounds, Non Tender, Non Distended, Soft - Extremities Extremities Exam: No Clubbing Present, No Edema Present, No Cyanosis Present - Neurological Neurological Exam: Alert, No Facial Droop, Speech Intact / Clear - Psychiatric Psychiatric Exam: Flat Affect Assessment and Plan - Patient Problems (1) UTI (urinary tract infection) Current Visit: No Status: Acute Comment: Positive for enterococci continue current antibioticlinezolid regimen patient is allergic to Cipro we had started Levaquin which he tolerated but because of his mental status this was stopped . Patient has a chronic Mott he cannot take it out before December because his BPH operation is delayed until he can come off the Plavix blood cultures are negative no white count or left shift (2) Altered mental status Current Visit: Yes Status: Acute Comment: Worsening dementia with behavioral changes improved with Seroquel 50 twice a day (3) Anxiety Current Visit: No Status: Acute Comment: [place]'s help in as well (4) Prostatic hypertrophy Current Visit: No Status: Acute Comment: Chronic indwelling Mott which he tried to rip out a few times (5) Urinary retention due to benign prostatic hyperplasia Current Visit: No Status: Acute (6) Hyponatremia syndrome Current Visit: Yes Status: Acute Comment: This is chronic and given him another dose of IV Lasix
[2016-10-15] MEDS: HEPARIN 5000 UNIT/1 ML SUBCUT SCH ×3 (00:11→16:58)
[2016-10-15] MEDS: LINEZOLID IV SCH ×2 (00:11→12:37)
[2016-10-15] MEDS: LEVOTHYROXINE 75 MCG TABLET PO SCH (05:38)
[2016-10-15 06:27] LABS: BASOPHILS # (AUTO) 0.01 10*3/UL; BASOPHILS % (AUTO) 0.2 % (0-1); EOSINOPHILS % (AUTO) 0.3 % (0-8); HEMOGLOBIN 14.1 g/dL (14.0-18.0); IMM GRAN % (AUTO) 0.2 % (0-5); IMM GRAN# (AUTO) 0.01 10*3/UL; LYMPHOCYTES # (AUTO) 0.83 10*3/uL; LYMPHOCYTES % (AUTO) 14.5 % (10-50); MEAN CORPUSCULAR HGB CONC 34.4 g/dL (33-37); MONOCYTES # (AUTO) 0.61 10*3/UL (0.3-0.8); MONOCYTES % (AUTO) 10.6 % (5-15); NEUTROPHILS # (AUTO) 4.25 10*3/UL; NEUTROPHILS % (AUTO) 74.2 % (50-80); RDW COEFFICIENT OF VARIATION 13.9 % (11.5-14.5); RED BLOOD COUNT 4.86 10^6/uL (4.70-6.10); WHITE BLOOD COUNT 5.73 10^3/uL (4.8-10.8)
[2016-10-15 06:29] LABS: PLATELET MORPHOLOGY COMMENT NORMAL MORPHOLOGY (NORM)
[2016-10-15 06:35] LABS: BILIRUBIN,TOTAL 0.9 mg/dL (0.3-1.2); BUN/CREATININE RATIO 13.33 (6-20); CALCIUM 9.2 mg/dL (8.7-10.7); CREATININE 0.9 mg/dL (0.70-1.50); POTASSIUM 3.9 meq/L (3.8-5.2); TOTAL PROTEIN 6.5 g/dL (6.1-8.0)
[2016-10-15] MEDS: predniSONE 5 MG TABLET PO SCH ×2 (07:55→16:58)
[2016-10-15] MEDS: ASPIRIN EC 81 MG TABLET PO SCH (09:25)
[2016-10-15] MEDS: CITALOPRAM 20 MG TABLET PO SCH (09:26)
[2016-10-15] MEDS: CLOPIDOGREL 75 MG TABLET PO SCH (09:26)
[2016-10-15] MEDS: QUEtiapine Tab 25 MG TAB PO SCH ×2 (09:27→20:25)
[2016-10-15] MEDS: FINASTERIDE 5 MG TABLET PO SCH (09:27)
[2016-10-15] MEDS: TAMSULOSIN 0.4 MG CAPSULE PO SCH (09:28)
[2016-10-15] MEDS: DONEPEZIL 5 MG TABLET PO SCH (09:28)
[2016-10-15] MEDS: ALPRAZolam Tab 0.25 MG TABLET PO SCH ×4 (09:29→20:25)
[2016-10-15] MEDS: MEMANTINE HCL 28 MG PO SCH (09:32)
--- NOTE | 2016-10-15 10:04 | PDOC(PROG) ---
Interval History: No change clinically answers question I still believe the dementia is still there cerebral was helping to normalize his sleep I suggested he take a wheelchair ride with the [employer] TE[employer]ICIAN's to maybe try to reorient him agrees at times he says yes time she does not answer Objective : Data - Labs CBC and BMP: 10/15/16 06:08 10/15/16 06:08 Labs - Last 24 Hours: Laboratory Results 10/14/16 10/15/16 Range/Units 09:45 06:08 WBC 7.07 5.73 (4.8-10.8) 10^3/uL RBC 4.98 4.86 (4.70-6.10) 10^6/uL Hgb 14.5 14.1 (14.0-18.0) g/dL Hct 41.9 L 41.0 L (42.0-52.0) % MCV 84.1 84.4 (80-90) FL MCH 29.1 29.0 (27-31) PG MCHC 34.6 34.4 (33-37) g/dL RDW Std Deviation 43.1 42.2 (39-50) fL RDW Coeff of Dio 14.1 13.9 (11.5-14.5) % Plt Count 160 149 (140-350) 10*3/uL MPV 9.8 10.0 (7.4-12.2) FL Immature Gran % (Auto) 0.2 (0-5) % Neut % (Auto) 74.2 (50-80) % Lymph % (Auto) 14.5 (10-50) % [place] % (Auto) 10.6 (5-15) % Eos % (Auto) 0.3 (0-8) % Baso % (Auto) 0.2 (0-1) % Immature Gran # (Auto) 0.01 10*3/UL Neut # (Auto) 4.25 10*3/UL Lymph # (Auto) 0.83 10*3/uL [place] # (Auto) 0.61 (0.3-0.8) 10*3/UL Eos # (Auto) 0.02 10*3/UL Baso # (Auto) 0.01 10*3/UL Neutrophils % (Manual) 79 (50-80) % Band Neutrophils % 1 (0-10) % Lymphocytes % (Manual) 12 (10-50) % Monocytes % (Manual) 7 (0-12) % Eosinophils % (Manual) 0 (0-8) % Basophils % (Manual) 1 (0-1) % Metamyelocytes % Not Reportable Myelocytes % Not Reportable Promyelocytes % Not Reportable Blast Cells Not Reportable WBC Morphology Comment Normal morphology Normal morphology (NORM) Plt Morphology Comment Normal morphology Normal morphology (NORM) RBC Morph Comment Normal morphology Normal morphology (NORM) Sodium 127 L 128 L (135-145) meq/L Potassium 3.9 3.9 (3.8-5.2) meq/L Chloride 90 L 91 L (98-112) meq/L Carbon Dioxide 27 30 (23-33) meq/L Anion Gap 10 7 (5-20) BUN 12 12 (7-22) mg/dL Creatinine 0.7 0.9 (0.70-1.50) mg/dL Estimated GFR (>60 ml/min/1.73m(2)) BUN/Creatinine Ratio 17.14 13.33 (6-20) Glucose 84 87 (78-110) mg/dL Calculated Osmolality 262.0 L 264.0 L (267-292) mOsm/kg Calcium 9.2 9.2 (8.7-10.7) mg/dL Total Bilirubin 0.8 0.9 (0.3-1.2) mg/dL AST 46 41 (21-57) IU/L ALT 45 49 (21-72) IU/L Alkaline Phosphatase 159 H 159 H (38-126) IU/L Total Protein 6.7 6.5 (6.1-8.0) g/dL Albumin 4.0 3.8 (3.5-4.8) g/dL Globulin 2.7 2.7 (2.50-4.10) g/dL Albumin/Globulin Ratio 1.40 1.40 (1.3-2.0) mg/g Objective : Exam - General General Appearance: Cooperative - Respiratory Respiratory Exam: Clear to Auscultation - Bilaterally, Breathing Non Labored, Normal To Percussion - Cardiovascular Cardiovascular Exam: RRR, No Murmur, No Clicks, No Gallops - GI/Abdominal GI/Abdominal Exam: Normal Bowel Sounds, Non Tender, Non Distended, Soft - Extremities Extremities Exam: No Clubbing Present, No Edema Present, No Cyanosis Present - Neurological Neurological Exam: Alert, CN II-XII Intact, No Facial Droop, Speech Intact / Clear - Psychiatric Psychiatric Exam: Flat Affect Assessment and Plan - Patient Problems (1) UTI (urinary tract infection) Current Visit: No Status: Acute Comment: Continue IV antibiotics linezolid I would suspect the patient needs a 14 day total course I did not visit with infectious disease growing staph epi and enterococcus (2) Altered mental status Current Visit: Yes Status: Acute Comment: Worsening dementia exacerbated by behavioral issues (3) Anxiety Current Visit: No Status: Acute Comment: Now on Seroquel this seems to be working very well (4) Prostatic hypertrophy Current Visit: No Status: Acute Comment: Chronic indwelling catheter scheduled for surgery after December after he comes off his Plavix (5) Urinary retention due to benign prostatic hyperplasia Current Visit: No Status: Acute (6) Hyponatremia syndrome Current Visit: Yes Status: Acute Comment: This is chronic slightly improved from yesterday - Assessment / Plan Additional Assessment/Plan Details: Disposition social workers look into intermediate care at this point
[2016-10-15] MEDS: NORMAL SALINE 10 ML SYRINGE FLUSH IVP PRN (12:37)
[2016-10-16] MEDS: LINEZOLID IV SCH ×2 (02:46→12:32)
[2016-10-16] MEDS: HEPARIN 5000 UNIT/1 ML SUBCUT SCH ×4 (02:47→23:13)
[2016-10-16] MEDS: LEVOTHYROXINE 75 MCG TABLET PO SCH (05:54)
[2016-10-16] MEDS: predniSONE 5 MG TABLET PO SCH (07:00)
[2016-10-16] MEDS: QUEtiapine Tab 25 MG TAB PO SCH ×2 (08:57→20:46)
[2016-10-16] MEDS: DONEPEZIL 5 MG TABLET PO SCH (08:57)
[2016-10-16] MEDS: FINASTERIDE 5 MG TABLET PO SCH (08:57)
[2016-10-16] MEDS: ALPRAZolam Tab 0.25 MG TABLET PO SCH ×4 (08:57→20:46)
[2016-10-16] MEDS: TAMSULOSIN 0.4 MG CAPSULE PO SCH (08:57)
[2016-10-16] MEDS: CLOPIDOGREL 75 MG TABLET PO SCH (08:57)
[2016-10-16] MEDS: ASPIRIN EC 81 MG TABLET PO SCH (08:57)
[2016-10-16] MEDS: CITALOPRAM 20 MG TABLET PO SCH (08:58)
[2016-10-16] MEDS: MEMANTINE HCL 28 MG PO SCH (08:58)
--- NOTE | 2016-10-16 11:38 | PDOC(PROG) ---
Date and Time of Service: 10/14/2016 11:30 AM Interval History: Subjective Patient feels better, denying complaint. The said that on the day of admission he was repeating himself that day and she was afraid that he had a stroke and she spoke with Dr. Be John and he suggested transfer to the ER however he did not want to go to the ER and it took 7 people to bring him to the ER. Was found that he has a urinary tract infection and is getting the treatment for it. There was some behavioral changes noted and then they put him on Seroquel. There is a plan for [facility] to go [facility] unit but the there is no beds. So the plan is to finish the antibiotics and then go there when they have a bed Objective : Data - Labs CBC and BMP: 10/15/16 06:08 10/15/16 06:08 Objective : Exam - General General Appearance: No Acute Distress, Cooperative - Head Head Exam: Normal Inspection - Eye Eye Exam: Normal Appearance - ENT ENT Exam: Normal Exam - Neck Neck Exam: Normal Inspection - Respiratory Respiratory Exam: Clear to Auscultation - Bilaterally - Cardiovascular Cardiovascular Exam: RRR - GI/Abdominal GI/Abdominal Exam: Normal Bowel Sounds, Non Tender, Non Distended, Soft - Rectal Rectal Exam: Deferred - External Exam: Deferred - Extremities Extremities Exam: Normal Inspection - Back Back Exam: Normal Inspection - Neurological Neurological Exam: Alert, CN II-XII Intact, Moves All Extremities Equally - Psychiatric Psychiatric Exam: Normal Affect Assessment and Plan - Patient Problems (1) UTI (urinary tract infection) Current Visit: No Status: Acute Comment: Continue current antibiotics, he probably needs a 10-14 days of antibiotics. Will speak with the caser up and see whether we can switch him to swing bed continue his treatment here before we send him home. We'll start cutting back on his prednisone (2) Altered mental status Current Visit: Yes Status: Acute Comment: He had some agitation initially but that seemed to be resolved. He is on Seroquel continue. (3) Anxiety Current Visit: No Status: Acute Comment: Same medications (4) Hypothyroidism Current Visit: No Status: Acute Comment: Same medications (5) Depression Current Visit: No Status: Acute Comment: Same med (6) Coronary artery disease Current Visit: No Status: Acute Comment: Continue same med. said that the plan for surgery is after December when he can come off the Plavix Qualifiers: Coronary Disease-Associated Artery/Lesion type: bypass graft [place] vs. transplanted heart: [place] heart Associated angina: with stable angina Qualified Description: Coronary artery disease of bypass graft of [place] heart with stable angina pectoris Qualifier Code(s): (I25.708) Atherosclerosis of coronary artery bypass graft(s), unspecified, with other forms of angina pectoris (7) DVT (deep venous thrombosis) Current Visit: No Status: Acute (8) DVT prophylaxis Current Visit: Yes Status: Acute Comment: He is on heparin
--- NOTE | 2016-10-16 17:08 | PT.PROG ---
Progress Note Progress Note: S. Patient stated that he would like to go to therapy this afternoon. O. Patient was wheeled to the therapy gym where he used the nu-step x 10 minutes , then ambulated 175 feet back to his room where he performed seated exercises in the form of; marches, long arc quads, heel toe raises all x 10 bilaterally. Patient was left in bed with alarm and call light. A. Patient tolerated exercises fair, he did not want to do more exercises this afternoon. Patient would continue to benefit from skilled therapy at this time. P. Continue POC.
[2016-10-17] MEDS: LINEZOLID IV SCH ×2 (00:21→13:10)
[2016-10-17] MEDS: LEVOTHYROXINE 75 MCG TABLET PO SCH (05:40)
--- NOTE | 2016-10-17 08:07 | PDOC(PROG) ---
Date and Time of Service: 10/17/2016 8 AM Interval History: Subjective Patient is denying complaint. No pain, no shortness of breath. Objective : Data - Labs CBC and BMP: 10/15/16 06:08 10/15/16 06:08 Objective : Exam - General General Appearance: No Acute Distress, Cooperative - Head Head Exam: Normal Inspection, Atraumatic - Eye Eye Exam: Normal Appearance - ENT ENT Exam: Normal Exam - Neck Neck Exam: Normal Inspection - Respiratory Respiratory Exam: Clear to Auscultation - Bilaterally - Cardiovascular Cardiovascular Exam: RRR - GI/Abdominal GI/Abdominal Exam: Normal Bowel Sounds, Non Tender, Non Distended, Soft - Rectal Rectal Exam: Deferred - External Exam: Deferred - Extremities Extremities Exam: Normal Inspection - Back Back Exam: Normal Inspection - Neurological Neurological Exam: Alert, CN II-XII Intact, Moves All Extremities Equally - Psychiatric Psychiatric Exam: Normal Affect Assessment and Plan - Patient Problems (1) UTI (urinary tract infection) Current Visit: No Status: Acute Comment: The growth showed enterococcus, continue current antibiotics I spoke with the senior program planner can not switch to swing bed so continue antibiotics as an inpatient, patient cannot tolerate oral antibiotics so he will be IV antibiotics until he is done (2) Altered mental status Current Visit: Yes Status: Acute Comment: He has history of dementia with agitation that is resolved he is on Seroquel continue (3) Anxiety Current Visit: No Status: Acute Comment: Same medications (4) Hypothyroidism Current Visit: No Status: Acute Comment: Same medications (5) Depression Current Visit: No Status: Acute Comment: Same med (6) Coronary artery disease Current Visit: No Status: Acute Comment: Same med Qualifiers: Coronary Disease-Associated Artery/Lesion type: bypass graft [place] vs. transplanted heart: [place] heart Associated angina: with stable angina Qualified Description: Coronary artery disease of bypass graft of [place] heart with stable angina pectoris Qualifier Code(s): (I25.708) Atherosclerosis of coronary artery bypass graft(s), unspecified, with other forms of angina pectoris (7) DVT prophylaxis Current Visit: Yes Status: Acute Comment: Continue heparin
[2016-10-17] MEDS: HEPARIN 5000 UNIT/1 ML SUBCUT SCH ×2 (08:11→16:50)
[2016-10-17] MEDS ORDERED: predniSONE Tab 10 MG TAB PO SCH (09:00)
[2016-10-17] MEDS: MEMANTINE HCL 28 MG PO SCH (09:33)
[2016-10-17] MEDS: TAMSULOSIN 0.4 MG CAPSULE PO SCH (09:33)
[2016-10-17] MEDS: FINASTERIDE 5 MG TABLET PO SCH (09:33)
[2016-10-17] MEDS: QUEtiapine Tab 25 MG TAB PO SCH ×2 (09:33→20:41)
[2016-10-17] MEDS: CITALOPRAM 20 MG TABLET PO SCH (09:33)
[2016-10-17] MEDS: CLOPIDOGREL 75 MG TABLET PO SCH (09:33)
[2016-10-17] MEDS: DONEPEZIL 5 MG TABLET PO SCH (09:33)
[2016-10-17] MEDS: ASPIRIN EC 81 MG TABLET PO SCH (09:33)
[2016-10-17] MEDS: ALPRAZolam Tab 0.25 MG TABLET PO SCH ×4 (09:34→20:41)
[2016-10-18] MEDS: NORMAL SALINE 10 ML SYRINGE FLUSH IVP PRN ×2 (00:08→12:23)
[2016-10-18] MEDS: HEPARIN 5000 UNIT/1 ML SUBCUT SCH ×3 (00:08→16:31)
[2016-10-18] MEDS: LINEZOLID IV SCH ×2 (00:08→12:22)
[2016-10-18] MEDS: LEVOTHYROXINE 75 MCG TABLET PO SCH (05:41)
--- NOTE | 2016-10-18 07:59 | PDOC(PROG) ---
Date and Time of Service: 10/18/2016 7:57 AM Interval History: Subjective Patient laying in bed doesn't appear in distress. Denying symptoms. Objective : Data - Labs CBC and BMP: 10/15/16 06:08 10/15/16 06:08 Objective : Exam - General General Appearance: No Acute Distress, Cooperative - Head Head Exam: Normal Inspection - Eye Eye Exam: Normal Appearance - ENT ENT Exam: Normal Exam - Neck Neck Exam: Normal Inspection - Respiratory Respiratory Exam: Clear to Auscultation - Bilaterally - Cardiovascular Cardiovascular Exam: RRR - GI/Abdominal GI/Abdominal Exam: Normal Bowel Sounds, Non Tender, Non Distended, Soft - Rectal Rectal Exam: Deferred - External Exam: Deferred - Extremities Extremities Exam: Normal Inspection - Back Back Exam: Normal Inspection - Neurological Neurological Exam: Alert, Oriented x 3, CN II-XII Intact - Psychiatric Psychiatric Exam: Normal Affect - Integumentary Integumentary Exam: Normal Color Assessment and Plan - Patient Problems (1) UTI (urinary tract infection) Current Visit: No Status: Acute Comment: Continue current antibiotics, for 10-14 days (2) Altered mental status Current Visit: Yes Status: Acute Comment: He has history of dementia, the agitation that he had resolved. The behavioral changes that he had maybe due to dementia and may be also exacerbated by the infection (3) Anxiety Current Visit: No Status: Acute Comment: Same med (4) Hypothyroidism Current Visit: No Status: Acute Comment: Same med (5) Depression Current Visit: No Status: Acute Comment: Same medications (6) Coronary artery disease Current Visit: No Status: Acute Comment: Same medications Qualifiers: Coronary Disease-Associated Artery/Lesion type: bypass graft [place] vs. transplanted heart: [place] heart Associated angina: with stable angina Qualified Description: Coronary artery disease of bypass graft of [place] heart with stable angina pectoris Qualifier Code(s): (I25.708) Atherosclerosis of coronary artery bypass graft(s), unspecified, with other forms of angina pectoris (7) DVT prophylaxis Current Visit: Yes Status: Acute Comment: He is on heparin
[2016-10-18] MEDS: CITALOPRAM 20 MG TABLET PO SCH (08:15)
[2016-10-18] MEDS: ALPRAZolam Tab 0.25 MG TABLET PO SCH ×4 (08:15→20:25)
[2016-10-18] MEDS: TAMSULOSIN 0.4 MG CAPSULE PO SCH (08:15)
[2016-10-18] MEDS: FINASTERIDE 5 MG TABLET PO SCH (08:15)
[2016-10-18] MEDS: ASPIRIN EC 81 MG TABLET PO SCH (08:15)
[2016-10-18] MEDS: QUEtiapine Tab 25 MG TAB PO SCH ×2 (08:15→20:25)
[2016-10-18] MEDS: DONEPEZIL 5 MG TABLET PO SCH (08:15)
[2016-10-18] MEDS: CLOPIDOGREL 75 MG TABLET PO SCH (08:16)
[2016-10-18] MEDS: MEMANTINE HCL 28 MG PO SCH (08:17)
[2016-10-19] MEDS: LINEZOLID IV SCH ×2 (00:20→12:48)
[2016-10-19] MEDS: HEPARIN 5000 UNIT/1 ML SUBCUT SCH ×3 (00:20→16:16)
[2016-10-19] MEDS: NORMAL SALINE 10 ML SYRINGE FLUSH IVP PRN ×2 (00:21→12:49)
[2016-10-19 05:26] LABS: BASOPHILS # (AUTO) 0.05 10*3/UL; EOSINOPHILS % (AUTO) 4.3 % (0-8); HEMATOCRIT 39.2 % (42.0-52.0); HEMOGLOBIN 13.6 g/dL (14.0-18.0); IMM GRAN % (AUTO) 0.4 % (0-5); IMM GRAN# (AUTO) 0.02 10*3/UL; LYMPHOCYTES # (AUTO) 0.97 10*3/uL; LYMPHOCYTES % (AUTO) 20.1 % (10-50); MEAN CORPUSCULAR HEMOGLOBIN 29.5 PG (27-31); MEAN CORPUSCULAR HGB CONC 34.7 g/dL (33-37); MEAN PLATELET VOLUME 9.3 FL (7.4-12.2); MONOCYTES # (AUTO) 0.59 10*3/UL (0.3-0.8); MONOCYTES % (AUTO) 12.2 % (5-15); NEUTROPHILS # (AUTO) 2.99 10*3/UL; RDW COEFFICIENT OF VARIATION 14.1 % (11.5-14.5); RED BLOOD COUNT 4.61 10^6/uL (4.70-6.10); WHITE BLOOD COUNT 4.83 10^3/uL (4.8-10.8)
[2016-10-19 05:28] LABS: PLATELET MORPHOLOGY COMMENT NORMAL MORPHOLOGY (NORM)
[2016-10-19] MEDS: LEVOTHYROXINE 75 MCG TABLET PO SCH (05:33)
[2016-10-19 05:42] LABS: CALCIUM 8.6 mg/dL (8.7-10.7); CREATININE 0.8 mg/dL (0.70-1.50); POTASSIUM 4.2 meq/L (3.8-5.2)
[2016-10-19] MEDS: CITALOPRAM 20 MG TABLET PO SCH (08:38)
[2016-10-19] MEDS: DONEPEZIL 5 MG TABLET PO SCH (08:38)
[2016-10-19] MEDS: TAMSULOSIN 0.4 MG CAPSULE PO SCH (08:38)
[2016-10-19] MEDS: CLOPIDOGREL 75 MG TABLET PO SCH (08:38)
[2016-10-19] MEDS: ASPIRIN EC 81 MG TABLET PO SCH (08:38)
[2016-10-19] MEDS: FINASTERIDE 5 MG TABLET PO SCH (08:39)
[2016-10-19] MEDS: MEMANTINE HCL 28 MG PO SCH (08:39)
[2016-10-19] MEDS: QUEtiapine Tab 25 MG TAB PO SCH ×2 (08:39→19:59)
[2016-10-19] MEDS: ALPRAZolam Tab 0.25 MG TABLET PO SCH ×4 (08:39→20:00)
--- NOTE | 2016-10-19 09:52 | PDOC(PROG) ---
Date and Time of Service: 10/19/2016 9:50 AM Interval History: Subjective Patient denying new symptoms. He looks down today compared to yesterday. Apparently the said that he is not eating well but his been going on for 2 years. He had problem with his prostate and they told him to change diet at the [facility] and he changed his diet and he is been losing weight. Objective : Data - Labs CBC and BMP: 10/19/16 04:45 10/19/16 04:45 Labs - Last 24 Hours: Laboratory Results 10/19/16 Range/Units 04:45 WBC 4.83 (4.8-10.8) 10^3/uL RBC 4.61 L (4.70-6.10) 10^6/uL Hgb 13.6 L (14.0-18.0) g/dL Hct 39.2 L (42.0-52.0) % MCV 85.0 (80-90) FL MCH 29.5 (27-31) PG MCHC 34.7 (33-37) g/dL RDW Std Deviation 43.3 (39-50) fL RDW Coeff of [place]io 14.1 (11.5-14.5) % Plt Count 133 L (140-350) 10*3/uL MPV 9.3 (7.4-12.2) FL Immature Gran % (Auto) 0.4 (0-5) % Neut % (Auto) 62.0 (50-80) % Lymph % (Auto) 20.1 (10-50) % [place] % (Auto) 12.2 (5-15) % Eos % (Auto) 4.3 (0-8) % Baso % (Auto) 1.0 (0-1) % Immature Gran # (Auto) 0.02 10*3/UL Neut # (Auto) 2.99 10*3/UL Lymph # (Auto) 0.97 10*3/uL [place] # (Auto) 0.59 (0.3-0.8) 10*3/UL Eos # (Auto) 0.21 10*3/UL Baso # (Auto) 0.05 10*3/UL WBC Morphology Comment Normal morphology (NORM) Plt Morphology Comment Normal morphology (NORM) RBC Morph Comment Normal morphology (NORM) Sodium 129 L (135-145) meq/L Potassium 4.2 (3.8-5.2) meq/L Chloride 98 (98-112) meq/L Carbon Dioxide 24 (23-33) meq/L Anion Gap 7 (5-20) BUN 12 (7-22) mg/dL Creatinine 0.8 (0.70-1.50) mg/dL Estimated GFR (>60 ml/min/1.73m(2)) BUN/Creatinine Ratio 15.00 (6-20) Glucose 79 (78-110) mg/dL Calculated Osmolality 266.0 L (267-292) mOsm/kg Calcium 8.6 L (8.7-10.7) mg/dL Objective : Exam - General General Appearance: No Acute Distress, Cooperative - Head Head Exam: Normal Inspection - Eye Eye Exam: Normal Appearance - ENT ENT Exam: Normal Exam - Neck Neck Exam: Normal Inspection - Respiratory Respiratory Exam: Clear to Auscultation - Bilaterally - Cardiovascular Cardiovascular Exam: RRR - GI/Abdominal GI/Abdominal Exam: Normal Bowel Sounds, Non Tender, Non Distended, Soft - Rectal Rectal Exam: Deferred - External Exam: Deferred - Extremities Extremities Exam: Normal Inspection - Back Back Exam: Normal Inspection - Neurological Neurological Exam: Alert, Oriented x 3, CN II-XII Intact, Moves All Extremities Equally - Psychiatric Psychiatric Exam: Flat Affect - Integumentary Integumentary Exam: Normal Color Assessment and Plan - Patient Problems (1) UTI (urinary tract infection) Current Visit: No Status: Acute Comment: Continue current antibiotics, I did tell the will be done by Wednesday (2) Altered mental status Current Visit: Yes Status: Acute Comment: Agitation that he had resolved continue current medications. (3) Anxiety Current Visit: No Status: Acute Comment: Same med (4) Hypothyroidism Current Visit: No Status: Acute Comment: Same med (5) Depression Current Visit: No Status: Acute Comment: Same medications (6) Coronary artery disease Current Visit: No Status: Acute Comment: Same medications Qualifiers: Coronary Disease-Associated Artery/Lesion type: bypass graft [place] vs. transplanted heart: [place] heart Associated angina: with stable angina Qualified Description: Coronary artery disease of bypass graft of [place] heart with stable angina pectoris Qualifier Code(s): (I25.708) Atherosclerosis of coronary artery bypass graft(s), unspecified, with other forms of angina pectoris (7) DVT prophylaxis Current Visit: Yes Status: Acute Comment: He is on heparin
--- NOTE | 2016-10-19 13:19 | OT.PROG ---
Progress Note Progress Note: S: pt as in bed upon arrival, pt initially refused therapy although then agreed to complete arm exercises. O: pt completed bed mobility with SBA and minimal cuing. pt completed blue theraband exercises 20 reps each of shoulder extension, punches, rows, biceps, horiz abd. A: pt did well with arm exercises. pt and refuse to have pt come down to therapy. pt would benefit from coming to therapy to complete upgraded exercises. pt requires maximal cuing to complete rote exercsies. P: cont per POC
--- NOTE | 2016-10-19 17:36 | PT.PROG ---
Progress Note Progress Note: S. Patient stated that he is in pain and does not want to go to therapy this morning, he agreed to do seated exercises. O. Patient performed seated exercises in the form of; heel toe raises, marches, long arc quads, resisted knee flexion, clamshells, pillow squeezes, sit to stands all x10 bilaterally. Patient was left in his chair with alarm and call light. A. Patient continues to struggle cognitively and did not want to do exercises with me. He was able to perform sit to stand transfers with CGA and and would continue to benefit from skilled therapy to regain strength at this time. P. continue POC.
--- NOTE | 2016-10-19 18:02 | PT.PROG ---
Progress Note Progress Note: S. Patient agreed to do therapy in his room this afternoon. O. Patient performed seated exercises in the form of; heel toe raises, marches, long arc quads, resisted knee flexion, clamshells, all x15 with red thera-band, sit to stands x 15. Patient was left with OT for further therapy. A. Patient tolerated exercises well this afternoon, he continues to gain strength and mobility. he however continues to struggle with cognition and safety. Patient would continue to benefit from skilled therapy at this time. P. Continue POC.
[2016-10-20] MEDS: LINEZOLID IV SCH ×2 (00:30→12:48)
[2016-10-20] MEDS: HEPARIN 5000 UNIT/1 ML SUBCUT SCH ×3 (00:31→15:29)
[2016-10-20] MEDS: LEVOTHYROXINE 75 MCG TABLET PO SCH (06:03)
[2016-10-20] MEDS: CITALOPRAM 20 MG TABLET PO SCH (08:01)
[2016-10-20] MEDS: MEMANTINE HCL 28 MG PO SCH (08:01)
[2016-10-20] MEDS: ALPRAZolam Tab 0.25 MG TABLET PO SCH ×4 (08:02→21:02)
[2016-10-20] MEDS: ASPIRIN EC 81 MG TABLET PO SCH (08:02)
[2016-10-20] MEDS: DONEPEZIL 5 MG TABLET PO SCH (08:02)
[2016-10-20] MEDS: QUEtiapine Tab 25 MG TAB PO SCH ×2 (08:02→21:04)
[2016-10-20] MEDS: FINASTERIDE 5 MG TABLET PO SCH (08:03)
[2016-10-20] MEDS: TAMSULOSIN 0.4 MG CAPSULE PO SCH (08:03)
[2016-10-20] MEDS: CLOPIDOGREL 75 MG TABLET PO SCH (08:03)
--- NOTE | 2016-10-20 10:03 | PDOC(PROG) ---
Date and Time of Service: 10/20/2016 10 AM Interval History: Subjective Patient denying symptoms, he looks better than yesterday. He said he did have breakfast today. The said he didn't sleep well last night he threw stuff on the floor. He woke up quite a few times Objective : Data - Labs CBC and BMP: 10/19/16 04:45 10/19/16 04:45 Objective : Exam - General General Appearance: No Acute Distress, Cooperative - Head Head Exam: Normal Inspection - Eye Eye Exam: Normal Appearance - ENT ENT Exam: Normal Exam - Neck Neck Exam: Normal Inspection - Respiratory Respiratory Exam: Clear to Auscultation - Bilaterally - Cardiovascular Cardiovascular Exam: RRR - GI/Abdominal GI/Abdominal Exam: Normal Bowel Sounds, Non Tender, Non Distended, Soft - Rectal Rectal Exam: Deferred - External Exam: Deferred - Extremities Extremities Exam: Normal Inspection - Back Back Exam: Normal Inspection - Neurological Neurological Exam: Alert, Oriented x 3, CN II-XII Intact, Moves All Extremities Equally - Psychiatric Psychiatric Exam: Normal Affect - Integumentary Integumentary Exam: Normal Color Assessment and Plan - Patient Problems (1) UTI (urinary tract infection) Current Visit: No Status: Acute Comment: Continue current antibiotics I think we'll aim to discharge him on Wednesday (2) Altered mental status Current Visit: Yes Status: Acute Comment: This is resolved. Probably part is secondary to the infection and part of it secondary to his underlying dementia he had some behavioral changes, now with what happened last night I think I'll increase the nighttime Seroquel and see whether that would to help more tonight (3) Anxiety Current Visit: No Status: Acute Comment: Same med (4) Hypothyroidism Current Visit: No Status: Acute Comment: Same med (5) Depression Current Visit: No Status: Acute Comment: Same med (6) Coronary artery disease Current Visit: No Status: Acute Comment: Same medications Qualifiers: Coronary Disease-Associated Artery/Lesion type: bypass graft [place] vs. transplanted heart: [place] heart Associated angina: with stable angina Qualified Description: Coronary artery disease of bypass graft of [place] heart with stable angina pectoris Qualifier Code(s): (I25.708) Atherosclerosis of coronary artery bypass graft(s), unspecified, with other forms of angina pectoris (7) DVT prophylaxis Current Visit: Yes Status: Acute Comment: He is on heparin
[2016-10-20] MEDS: NORMAL SALINE 10 ML SYRINGE FLUSH IVP PRN (12:49)
--- NOTE | 2016-10-20 15:14 | PTI REPORT ---
Thank you for the referral of Trell Rodriguez. He was seen on 10/16/16 for an inpatient evaluation secondary to weakness. SUBJECTIVE: The patient is an 80-year-old male. At the time of the evaluation, the patient' s provided all subjective comments, stating her was basically incapacitated to give any accurate assessment. She states he was taken via ambulance to the hospital, concerned that he was having a stroke back on the 10 of October and he has been hospitalized ever since. She states that she will be taking him home because the retirement does not have any room here in town and she is unwilling to have him go to a senior living care facility outside of [place] due to her own health. When asked, the patient denied he was having any pain. The patient's spouse reports that he has not fallen at home over the past six months and that he is very careful. She states he has a walker but he does not use it. PAST MEDICAL HISTORY: Past medical history can be found in the patient's medical record. OBJECTIVE FINDINGS: Pain: The patient denies having any pain. Bed mobility/Transfers: The patient was able to perform all bed mobility and sit to stand transfers with stand by assistance. Balance: The patient was able to perform single legged standing activities with bilateral hand hold assistance. Cognition: The patient was able to follow two step commands 50% of the time accurately. If there was prolonged time between activities asked in two step commands, he would forget. He was unable to follow a three step command. Range of motion: The patient's bilateral lower extremity range of motion was well within functional limits. Strength: The patient's bilateral lower extremity strength was 5/5 as tested in the seated position. Ambulation: The patient demonstrated the ability to ambulate unlimited distances with the use of an assistive device, gait belt, and contact guard to stand by assistance, requiring verbal cues for propre sequencing as well as reduction in speed due to safety concerns by the therapist. Balance: The patient was unable to perform any tandem or crossing midline activities with lower extremities in the standing position. ASSESSMENT: Problem List: Sequencing Risk of falls Physical Therapy Goals: To be met by discharge from inpatient: Patient will demonstrate the ability to ambulate unlimited distances with appropriate assistive device without risk of falling. TREATMENT PLAN: Patient will be seen B.I.D during the week and one time per day over the weekend as an inpatient to address the above goals and objectives. INITIAL TREATMENT: Treatment today consisted of the initial evaluation followed by the patient performing therapeutic exercises and functional activities including seated heel raises and marching with bilateral hand hold assistance, standing hip abduction, and sit to stands x12. The patient then ambulated 10 minutes continuously with rest breaks per patient choice only; his endurance did not seem to be in distress. EMMA
--- NOTE | 2016-10-20 15:57 | OTI REPORT ---
Thank you for the referral of MAHI MAY. He was seen on 10/16/16 for an occupational therapy inpatient evaluation. SUBJECTIVE: The patient is an 80-year-old male who is being seen for generalized weakness. The patient does live at home with his . He has been in the hospital recently. He does have a diagnosis of Alzheimer's; however, the patient's has refused all cognitive testing and activities. The patient was ordered therapy a few days ago; however, up until today his had refused therapy. As of this morning, his did agree to let therapy come in. PAST MEDICAL HISTORY: Past medical history can be found in the patient's medical record. OBJECTIVE FINDINGS: General observations: The patient was sitting in his chair upon OT arrival. Range of motion/Strength: The patient has good shoulder range of motion and 4/5 strength bilaterally. Pain: The patient has no complaints of pain. Activities of daily living: The therapist asked the patient and his if we could get him dressed; however, the patient's did refuse getting him dressed today, stating we could try again tomorrow. ASSESSMENT: Problem List: Decreased functional mobility Decreased ability to perform ADLs Occupational Therapy Goals: To be met by discharge from inpatient: Patient will be able to complete all activities of daily living with minimal cues only including upper and lower extremity dressing and showering. Patient will be able to complete functional ambulation x200 feet with good safety. TREATMENT PLAN: Patient will be seen B.I.D during the week and one time per day over the weekend as an inpatient to address the above goals and objectives. INITIAL TREATMENT: Treatment today consisted of the initial evaluation. The patient did agree to upper extremity exercises. The patient completed green theraband resisted exercises x15 repetitions x2 sets for biceps, triceps, punches, shoulder extension, and horizontal abduction. The patient also completed 10 wheelchair push ups. After that we did end the session. EMMA
--- NOTE | 2016-10-20 17:07 | PT.PROG ---
Progress Note Progress Note: S. Patient stated that he would go for a short walk but no more. He reported that he is very tired O. Patient ambulated 150 feet around the nurses station, Patient performed standing hip flexion/extension, marches, heel toe raises all x 10 bilaterally. Patient was left in bed with alarm and call light. A. Patient was struggling to stay awake during ambulation, Patient was able to perform standing exercises well, however he did not want to do any thing more. Discussed with Evaluating therapist and OT and agreed on changing to one treatment a day having OT treat in AM and PT treat In PM to help decrease frequency of refusal. P. Continue to see patient 1x per day as per Breanne Woods PT.
[2016-10-21] MEDS: HEPARIN 5000 UNIT/1 ML SUBCUT SCH ×4 (00:12→23:47)
[2016-10-21] MEDS: LINEZOLID IV SCH ×3 (00:12→23:46)
[2016-10-21] MEDS: NORMAL SALINE 10 ML SYRINGE FLUSH IVP PRN ×2 (00:13→23:35)
[2016-10-21] MEDS: LEVOTHYROXINE 75 MCG TABLET PO SCH (05:35)
[2016-10-21] MEDS: MEMANTINE HCL 28 MG PO SCH (08:59)
[2016-10-21] MEDS: DONEPEZIL 5 MG TABLET PO SCH (09:00)
[2016-10-21] MEDS: ASPIRIN EC 81 MG TABLET PO SCH (09:00)
[2016-10-21] MEDS: QUEtiapine Tab 25 MG TAB PO SCH ×2 (09:00→20:19)
[2016-10-21] MEDS: ALPRAZolam Tab 0.25 MG TABLET PO SCH ×4 (09:01→23:35)
[2016-10-21] MEDS: TAMSULOSIN 0.4 MG CAPSULE PO SCH (09:01)
[2016-10-21] MEDS: CITALOPRAM 20 MG TABLET PO SCH (09:01)
[2016-10-21] MEDS: CLOPIDOGREL 75 MG TABLET PO SCH (09:01)
[2016-10-21] MEDS: FINASTERIDE 5 MG TABLET PO SCH (09:01)
--- NOTE | 2016-10-21 11:49 | PT AM DAY ---
Diagnosis : Weakness AM - Physical Therapy S: The patient states he is feeling a little bit better today and he is willing to work with physical therapy. O: The patient ambulated around the nurse's station x2 with front wheeled walker and contact guard assist. The patient then performed exercises in his room including marching, knee flexion/extension, hip abduction/adduction, and sit to stands. He then performed upper extremity exercises including rows and biceps curls. A: The patient did well with ambulation, he just needed help navigating corners. The patient was a little bit impulsive and did have to be reminded to slow down. P: Continue seeing patient BID during the week and one time per day over the weekend for transfers, ambulation, and range of motion/strengthening exercises. EMMA
--- NOTE | 2016-10-21 12:01 | PT PM DAY ---
Diagnosis : Weakness PM - Physical Therapy S: The patient states he is willing to work with therapy. His asked us not to take him downstairs but to keep him on the third floor. O: The patient was able to ambulate x5 laps around the nurse's station with front wheeled walker and contact guard assist. A: The patient is doing well. He could use some more aggressive general strengthening if we can get his to agree to allow us to do that. P: Continue seeing patient BID during the week and one time per day over the weekend for transfers, ambulation, and range of motion/strengthening exercises. MTDD
--- NOTE | 2016-10-21 14:17 | OT AM DAY ---
Diagnosis : Weakness AM - Occupational Therapy S: The patient was in his bed upon the therapist's arrival. The patient was asked if he wanted to take a shower. At first he did refuse, but after talking with him for a little bit he did agree. O: The patient completed bed mobility independently. He then performed a sit to stand transfer and ambulated approximately 75 feet to the shower room. The patient did require cueing for safety during transfer. The patient did have poor balance when walking; although he does not understand use of the walker. The patient did waiver back and forth throughout the walk. The patient required mod cues to get to the shower room. He needed cueing to go in each door and visual direction of which way to turn. Once in the bathroom the patient did require maximum cueing as far as the order of tasks for showering. For example, taking off his shirt, then taking off his pants, then taking off his socks; he needed cues for each task. The patient needed cues as to what the water was for as well as the soap, how to wash, and what to wash. When told what to do the patient did fairly well. Safety was questionable in the shower. The wall was approximately 4 feet in front of where he was sitting and 1-2 times he did bonk his head on the wall in front of him because he would stand up so quickly and not pay attention to where his body was. The patient's physical strength is good but he does require mod to max cueing for safety and all sequencing of tasks. Once again, the patient required cueing for dressing upper and lower extremities and cueing to leave the bathroom with good safety. The patient was taken back to his room where he laid back down in bed. The patient was left with call light and bed alarm on. A: Overall the patient did fair with the showering. He did require mod to max cueing for shower task and dressing task but physically has good strength. P: Continue seeing patient BID during the week and one time per day over the weekend for upper extremity strengthening, ADLs, and overall functional mobility. EMMA
--- NOTE | 2016-10-21 14:52 | PDOC(PROG) ---
Interval History: Patient had a good night's Peck was increased is no complaints this morning and feeling pretty well specifically has no chest pain nausea vomiting Objective : Data - Labs CBC and BMP: 10/19/16 04:45 10/19/16 04:45 Objective : Exam - General General Appearance: Cooperative - Respiratory Respiratory Exam: Clear to Auscultation - Bilaterally, Breathing Non Labored, Normal To Percussion, Normal to Percussion and Palpation - Cardiovascular Cardiovascular Exam: RRR, No Murmur, No Clicks, No Gallops - GI/Abdominal GI/Abdominal Exam: Normal Bowel Sounds, Non Tender, Non Distended, Soft Assessment and Plan - Patient Problems (1) UTI (urinary tract infection) Current Visit: No Status: Acute Comment: He will finish 14 day course tomorrow then we will stop his antibiotics no white count mental status is more stable indwelling chronic Mott catheter (2) Altered mental status Current Visit: Yes Status: Acute Comment: Combination of dementia with behavioral changes imaging negative for stroke 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[employer] she is on the waiting list for [facility] but the patient and his do not want to wait any longer she has decided to take him home I have told her that he could get belligerent and be aggressive that could potentially harder she understands all these risks I also offered for social service to find him a placement in [place] patient is not interested in this at this present time (3) Anxiety Current Visit: No Status: Acute Comment: Stable (4) Prostatic hypertrophy Current Visit: No Status: Acute Comment: Indwelling Mott catheter awaiting for surgery in late December (5) Urinary retention due to benign prostatic hyperplasia Current Visit: No Status: Acute (6) Hyponatremia syndrome Current Visit: Yes Status: Acute Comment: Chronic
--- NOTE | 2016-10-21 17:33 | PT.PROG ---
Progress Note Progress Note: S. Patient stated that he would like to go for a walk but not leave the floor. O. Patient ambulated 300 feet around the nurses station then performed standing exercises in the form of; heel raises, marches, hip flexion/extension, abduction /adduction all x 10 bilaterally, Patient performed sit to stands x 10 then was left in bed with alarm and call light. A. Patient continues to struggle with balance. He continues to have sporadic movements and requires min assist with balance when turning during ambulation. Patient would continue to benefit from skilled therapy. P. continue POC.
[2016-10-22] MEDS: LEVOTHYROXINE 75 MCG TABLET PO SCH (05:32)
[2016-10-22] MEDS: MEMANTINE HCL 28 MG PO SCH (08:26)
[2016-10-22] MEDS: CITALOPRAM 20 MG TABLET PO SCH (08:26)
[2016-10-22] MEDS: QUEtiapine Tab 25 MG TAB PO SCH ×2 (08:27→20:18)
[2016-10-22] MEDS: TAMSULOSIN 0.4 MG CAPSULE PO SCH (08:27)
[2016-10-22] MEDS: DONEPEZIL 5 MG TABLET PO SCH (08:28)
[2016-10-22] MEDS: ALPRAZolam Tab 0.25 MG TABLET PO SCH ×4 (08:28→22:55)
[2016-10-22] MEDS: HEPARIN 5000 UNIT/1 ML SUBCUT SCH ×2 (08:29→16:24)
[2016-10-22] MEDS: FINASTERIDE 5 MG TABLET PO SCH (08:29)
[2016-10-22] MEDS: ASPIRIN EC 81 MG TABLET PO SCH (08:29)
[2016-10-22] MEDS: CLOPIDOGREL 75 MG TABLET PO SCH (08:29)
--- NOTE | 2016-10-22 10:27 | PDOC(PROG) ---
Interval History: Patient is doing well coherent I have asked him if he wanted to go home he said of course I do [employer] social worker was with me in the room as no complaints Objective : Data - Labs CBC and BMP: 10/19/16 04:45 10/19/16 04:45 Objective : Exam - General General Appearance: Cooperative - Respiratory Respiratory Exam: Clear to Auscultation - Bilaterally, Breathing Non Labored, Normal To Percussion - Cardiovascular Cardiovascular Exam: RRR, No Murmur, No Clicks, No Gallops - GI/Abdominal GI/Abdominal Exam: Normal Bowel Sounds, Non Tender, Soft - Extremities Extremities Exam: Normal Inspection, No Clubbing Present, No Edema Present - Neurological Neurological Exam: Alert, CN II-XII Intact, No Facial Droop, Speech Intact / Clear, Moves All Extremities Equally - Psychiatric Psychiatric Exam: Flat Affect Assessment and Plan - Patient Problems (1) UTI (urinary tract infection) Current Visit: No Status: Acute Comment: Tomorrow as the last their was 14 day of antibiotic course (2) Altered mental status Current Visit: Yes Status: Acute Comment: Symptoms be improved with the Seroquel (3) Anxiety Current Visit: No Status: Acute Comment: Improved with Seroquel I would DC is Xanax (4) Prostatic hypertrophy Current Visit: No Status: Acute (5) Urinary retention due to benign prostatic hyperplasia Current Visit: No Status: Acute (6) Hyponatremia syndrome Current Visit: Yes Status: Acute Comment: Chronic
[2016-10-22 11:22] LABS: BASOPHILS # (AUTO) 0.04 10*3/UL; BASOPHILS % (AUTO) 0.8 % (0-1); EOSINOPHILS % (AUTO) 1.9 % (0-8); HEMATOCRIT 38.4 % (42.0-52.0); HEMOGLOBIN 13.2 g/dL (14.0-18.0); IMM GRAN % (AUTO) 0.2 % (0-5); IMM GRAN# (AUTO) 0.01 10*3/UL; LYMPHOCYTES # (AUTO) 0.68 10*3/uL; LYMPHOCYTES % (AUTO) 14.1 % (10-50); MEAN CORPUSCULAR HEMOGLOBIN 29.1 PG (27-31); MEAN CORPUSCULAR HGB CONC 34.4 g/dL (33-37); MEAN PLATELET VOLUME 9.2 FL (7.4-12.2); MONOCYTES # (AUTO) 0.44 10*3/UL (0.3-0.8); MONOCYTES % (AUTO) 9.1 % (5-15); NEUTROPHILS # (AUTO) 3.56 10*3/UL; NEUTROPHILS % (AUTO) 73.9 % (50-80); PLATELET MORPHOLOGY COMMENT NORMAL MORPHOLOGY (NORM); RDW COEFFICIENT OF VARIATION 13.8 % (11.5-14.5); RED BLOOD COUNT 4.53 10^6/uL (4.70-6.10); WHITE BLOOD COUNT 4.82 10^3/uL (4.8-10.8)
[2016-10-22 11:43] LABS: BILIRUBIN,TOTAL 0.8 mg/dL (0.3-1.2); BUN/CREATININE RATIO 11.25 (6-20); CALCIUM 8.5 mg/dL (8.7-10.7); CREATININE 0.8 mg/dL (0.70-1.50); POTASSIUM 4.5 meq/L (3.8-5.2); TOTAL PROTEIN 5.9 g/dL (6.1-8.0)
[2016-10-22] MEDS: LINEZOLID IV SCH (13:51)
--- NOTE | 2016-10-22 16:23 | PT.PROG ---
Progress Note Progress Note: S. Patient stated that he would like to go for a walk, but not too long. O. Patient ambulated 300 feet around the nurses station, then performed standing exercises in the form of; marches, hip flexion/extension, heel raises, sit to stands all x 10 bilaterally. A. Patient continues to be impulsive and requires short one to two step commands to follow directions. He requires min assist during ambulation due to spontaneous moments and quick turns around corners. Patient struggles with safety during ambulation and transfers. Patient would continue to benefit from skilled therapy at this time P. Continue POC.
--- NOTE | 2016-10-22 16:34 | OT.PROG ---
Progress Note Progress Note: S: pt adimettly refused therapy this afternoon, stating he is sick of this stuff and does not want to do it. we will attempt again in the morning
[2016-10-22] MEDS ORDERED: FUROSEMIDE 10 MG/1 ML - 4 ML IVP ONE (22:32)
[2016-10-23] MEDS: HEPARIN 5000 UNIT/1 ML SUBCUT SCH ×2 (00:30→09:09)
[2016-10-23] MEDS: LINEZOLID IV SCH (00:30)
[2016-10-23] MEDS: LEVOTHYROXINE 75 MCG TABLET PO SCH (05:35)
[2016-10-23 06:32] LABS: BILIRUBIN,TOTAL 0.9 mg/dL (0.3-1.2); CALCIUM 8.7 mg/dL (8.7-10.7); CREATININE 0.9 mg/dL (0.70-1.50); POTASSIUM 4.2 meq/L (3.8-5.2); TOTAL PROTEIN 6.1 g/dL (6.1-8.0)
[2016-10-23 06:56] VITALS: RESP 20; TEMP 97
[2016-10-23] MEDS: CITALOPRAM 20 MG TABLET PO SCH (09:03)
[2016-10-23] MEDS: DONEPEZIL 5 MG TABLET PO SCH (09:04)
[2016-10-23] MEDS: ASPIRIN EC 81 MG TABLET PO SCH (09:04)
[2016-10-23] MEDS: TAMSULOSIN 0.4 MG CAPSULE PO SCH (09:04)
[2016-10-23] MEDS: ALPRAZolam Tab 0.25 MG TABLET PO SCH (09:05)
[2016-10-23] MEDS: CLOPIDOGREL 75 MG TABLET PO SCH (09:05)
[2016-10-23] MEDS: FINASTERIDE 5 MG TABLET PO SCH (09:05)
[2016-10-23] MEDS: MEMANTINE HCL 28 MG PO SCH (09:08)
[2016-10-23] MEDS: QUEtiapine Tab 25 MG TAB PO SCH (09:09)
--- NOTE | 2016-10-23 10:41 | DCSUMMARY ---
Hospitalization Summary Hospital Course: Final Discharge Diagnosis: Current Visit Problems Problem Status Priority Diagnosed Code Altered mental status Acute R41.82 DVT prophylaxis Acute [id number] Hyponatremia syndrome Acute E87.1 Behavioral changes with dementia Chronic indwelling Mott Urinary tract infection Diagnostic Data, Laboratory Data, and Procedures of Signifigance: Laboratory Results 10/10/16 10/10/16 10/10/16 Range/Units 19:05 19:43 22:30 WBC 5.88 (4.8-10.8) 10^3/uL RBC 4.42 L (4.70-6.10) 10^6/uL Hgb 13.0 L (14.0-18.0) g/dL Hct 36.9 L (42.0-52.0) % MCV 83.5 (80-90) FL MCH 29.4 (27-31) PG MCHC 35.2 (33-37) g/dL RDW Std Deviation 41.5 (39-50) fL RDW Coeff of Dio 13.8 (11.5-14.5) % Plt Count 133 L (140-350) 10*3/uL MPV 9.2 (7.4-12.2) FL Immature Gran % (Auto) 0.2 (0-5) % Neut % (Auto) 78.9 (50-80) % Lymph % (Auto) 9.4 L (10-50) % [place] % (Auto) 8.0 (5-15) % Eos % (Auto) 2.6 (0-8) % Baso % (Auto) 0.9 (0-1) % Immature Gran # (Auto) 0.01 10*3/UL Neut # (Auto) 4.65 10*3/UL Lymph # (Auto) 0.55 10*3/uL [place] # (Auto) 0.47 (0.3-0.8) 10*3/UL Eos # (Auto) 0.15 10*3/UL Baso # (Auto) 0.05 10*3/UL Neutrophils % (Manual) (50-80) % Band Neutrophils % (0-10) % Lymphocytes % (Manual) (10-50) % Monocytes % (Manual) (0-12) % Eosinophils % (Manual) (0-8) % Basophils % (Manual) (0-1) % Metamyelocytes % Myelocytes % Promyelocytes % Blast Cells WBC Morphology Comment See comments (NORM) Plt Morphology Comment Normal morphology (NORM) RBC Morph Comment Normal morphology (NORM) ESR 3 (0-15) MM/HR PT 12.4 H (9.7-11.4) secs INR 1.20 (0.00-5.90) N/A Sodium 126 L (135-145) meq/L Potassium 4.0 (3.8-5.2) meq/L Chloride 96 L (98-112) meq/L Carbon Dioxide 21 L (23-33) meq/L Anion Gap 9 (5-20) BUN 10 (7-22) mg/dL Creatinine 0.8 (0.70-1.50) mg/dL Estimated GFR (>60 ml/min/1.73m(2)) BUN/Creatinine Ratio 12.50 (6-20) Glucose 99 (78-110) mg/dL Calculated Osmolality 260.0 L (267-292) mOsm/kg Calcium 8.7 (8.7-10.7) mg/dL Magnesium 2.1 (1.6-2.4) mg/dL Total Bilirubin 0.7 (0.3-1.2) mg/dL AST 36 (21-57) IU/L ALT 32 (21-72) IU/L Alkaline Phosphatase 159 H (38-126) IU/L Troponin I 0.016 (< 0.040) ng/mL C-Reactive Protein 0.7 (0.0-0.9) mg/dL Total Protein 6.0 L (6.1-8.0) g/dL Albumin 3.5 (3.5-4.8) g/dL Globulin 2.5 (2.50-4.10) g/dL Albumin/Globulin Ratio 1.40 (1.3-2.0) mg/g TSH 1.11 (0.2700-4.2000) uIU/mL Free T4 1.63 (0.93-1.71) ng/dL Ur Collection Type Cath specimen Urine Color Yellow Urine Clarity Slightly vin (CLEAR) Urine pH 7.0 (5.0-8.5) Ur Specific [place] 1.010 (1.005-1.030) U Specif Grav (Refrac) 1.010 Urine Protein 30 (NEG) mg/dl Urine Glucose (UA) Negative (NEG) mg/dL Urine Ketones Negative (NEG) Urine Occult Blood Moderate H (NEG) Urine Nitrate Positive H (NEG) Urine Bilirubin Negative (NEG) Urine Urobilinogen 0.2 (0.2) EU/dL Ur Leukocyte Esterase Moderate (NEG) Urine RBC 2-4 (NONE) /hpf Urine WBC 8-10 (NONE) Ur Squamous Epith Cells Rare (NONE) Ur Renal Epithelial Cell None (NONE) Urine Crystals None Urine Bacteria Moderate (NONE) Urine Casts None (NONE) Urine Mucus None (NONE) Urine Trichomonas None (NONE) Urine Yeast None (NONE) Ur Culture Indicated? Culture set Urine Opiates Screen Negative (NEG) Ur Buprenorphine Negative (NEG) Ur Oxycodone Screen Negative (NEG) Urine Methadone Screen Negative (NEG) Ur Propoxyphene Screen Negative (NEG) Barbiturate Screen Negative (NEG) U Tricyclic Antidepress Negative (NEG) Phencyclidine Screen Negative (NEG) Amphetamines Screen Negative (NEG) U Methamphetamines Scrn Negative (NEG) Benzodiazepines Screen Positive H (NEG) Cocaine Screen Negative (NEG) U Marijuana (THC) Screen Negative (NEG) Serum Alcohol 10 (0-10) mg/dL 10/11/16 10/12/16 10/13/16 Range/Units 08:53 17:38 05:42 WBC 4.84 6.75 (4.8-10.8) 10^3/uL RBC 4.50 L 5.09 (4.70-6.10) 10^6/uL Hgb 13.4 L 14.9 (14.0-18.0) g/dL Hct 37.5 L 42.7 (42.0-52.0) % MCV 83.3 83.9 (80-90) FL MCH 29.8 29.3 (27-31) PG MCHC 35.7 34.9 (33-37) g/dL RDW Std Deviation 41.3 42.5 (39-50) fL RDW Coeff of Dio 13.9 14.1 (11.5-14.5) % Plt Count 135 L 166 (140-350) 10*3/uL MPV 9.6 9.9 (7.4-12.2) FL Immature Gran % (Auto) 0.2 0.1 (0-5) % Neut % (Auto) 82.6 H 81.7 H (50-80) % Lymph % (Auto) 8.1 L 10.4 (10-50) % [place] % (Auto) 8.1 7.6 (5-15) % Eos % (Auto) 0.4 0.1 (0-8) % Baso % (Auto) 0.6 0.1 (0-1) % Immature Gran # (Auto) 0.01 0.01 10*3/UL Neut # (Auto) 4.00 5.51 10*3/UL Lymph # (Auto) 0.39 0.70 10*3/uL [place] # (Auto) 0.39 0.51 (0.3-0.8) 10*3/UL Eos # (Auto) 0.02 0.01 10*3/UL Baso # (Auto) 0.03 0.01 10*3/UL Neutrophils % (Manual) (50-80) % Band Neutrophils % (0-10) % Lymphocytes % (Manual) (10-50) % Monocytes % (Manual) (0-12) % Eosinophils % (Manual) (0-8) % Basophils % (Manual) (0-1) % Metamyelocytes % Myelocytes % Promyelocytes % Blast Cells WBC Morphology Comment Normal morphology Normal morphology (NORM) Plt Morphology Comment Normal morphology Normal morphology (NORM) RBC Morph Comment Normal morphology Normal morphology (NORM) ESR (0-15) MM/HR PT (9.7-11.4) secs INR (0.00-5.90) N/A Sodium 131 L 127 L 131 L (135-145) meq/L Potassium 4.5 4.1 4.1 (3.8-5.2) meq/L Chloride 100 95 L 94 L (98-112) meq/L Carbon Dioxide 22 L 23 28 (23-33) meq/L Anion Gap 9 9 9 (5-20) BUN 7 11 11 (7-22) mg/dL Creatinine 0.7 0.7 0.9 (0.70-1.50) mg/dL Estimated GFR (>60 ml/min/1.73m(2)) BUN/Creatinine Ratio 10.00 15.71 12.22 (6-20) Glucose 116 H 114 H 91 (78-110) mg/dL Calculated Osmolality 270.0 263.0 L 270.0 (267-292) mOsm/kg Calcium 8.6 L 9.0 9.4 (8.7-10.7) mg/dL Magnesium 2.0 (1.6-2.4) mg/dL Total Bilirubin 0.6 0.7 0.8 (0.3-1.2) mg/dL AST 29 21 32 (21-57) IU/L ALT 36 35 37 (21-72) IU/L Alkaline Phosphatase 180 H 177 H 160 H (38-126) IU/L Troponin I (< 0.040) ng/mL C-Reactive Protein (0.0-0.9) mg/dL Total Protein 6.1 6.4 6.8 (6.1-8.0) g/dL Albumin 3.4 L 3.8 3.9 (3.5-4.8) g/dL Globulin 2.7 2.6 2.8 (2.50-4.10) g/dL Albumin/Globulin Ratio 1.20 L 1.40 1.30 (1.3-2.0) mg/g TSH 0.993 (0.2700-4.2000) uIU/mL Free T4 (0.93-1.71) ng/dL Ur Collection Type Urine Color Urine Clarity (CLEAR) Urine pH (5.0-8.5) Ur Specific [place] (1.005-1.030) U Specif Grav (Refrac) Urine Protein (NEG) mg/dl Urine Glucose (UA) (NEG) mg/dL Urine Ketones (NEG) Urine Occult Blood (NEG) Urine Nitrate (NEG) Urine Bilirubin (NEG) Urine Urobilinogen (0.2) EU/dL Ur Leukocyte Esterase (NEG) Urine RBC (NONE) /hpf Urine WBC (NONE) Ur Squamous Epith Cells (NONE) Ur Renal Epithelial Cell (NONE) Urine Crystals Urine Bacteria (NONE) Urine Casts (NONE) Urine Mucus (NONE) Urine Trichomonas (NONE) Urine Yeast (NONE) Ur Culture Indicated? Urine Opiates Screen (NEG) Ur Buprenorphine (NEG) Ur Oxycodone Screen (NEG) Urine Methadone Screen (NEG) Ur Propoxyphene Screen (NEG) Barbiturate Screen (NEG) U Tricyclic Antidepress (NEG) Phencyclidine Screen (NEG) Amphetamines Screen (NEG) U Methamphetamines Scrn (NEG) Benzodiazepines Screen (NEG) Cocaine Screen (NEG) U Marijuana (THC) Screen (NEG) Serum Alcohol (0-10) mg/dL 10/14/16 10/15/16 10/19/16 Range/Units 09:45 06:08 04:45 WBC 7.07 5.73 4.83 (4.8-10.8) 10^3/uL RBC 4.98 4.86 4.61 L (4.70-6.10) 10^6/uL Hgb 14.5 14.1 13.6 L (14.0-18.0) g/dL Hct 41.9 L 41.0 L 39.2 L (42.0-52.0) % MCV 84.1 84.4 85.0 (80-90) FL MCH 29.1 29.0 29.5 (27-31) PG MCHC 34.6 34.4 34.7 (33-37) g/dL RDW Std Deviation 43.1 42.2 43.3 (39-50) fL RDW Coeff of Dio 14.1 13.9 14.1 (11.5-14.5) % Plt Count 160 149 133 L (140-350) 10*3/uL MPV 9.8 10.0 9.3 (7.4-12.2) FL Immature Gran % (Auto) 0.2 0.4 (0-5) % Neut % (Auto) 74.2 62.0 (50-80) % Lymph % (Auto) 14.5 20.1 (10-50) % [place] % (Auto) 10.6 12.2 (5-15) % Eos % (Auto) 0.3 4.3 (0-8) % Baso % (Auto) 0.2 1.0 (0-1) % Immature Gran # (Auto) 0.01 0.02 10*3/UL Neut # (Auto) 4.25 2.99 10*3/UL Lymph # (Auto) 0.83 0.97 10*3/uL [place] # (Auto) 0.61 0.59 (0.3-0.8) 10*3/UL Eos # (Auto) 0.02 0.21 10*3/UL Baso # (Auto) 0.01 0.05 10*3/UL Neutrophils % (Manual) 79 (50-80) % Band Neutrophils % 1 (0-10) % Lymphocytes % (Manual) 12 (10-50) % Monocytes % (Manual) 7 (0-12) % Eosinophils % (Manual) 0 (0-8) % Basophils % (Manual) 1 (0-1) % Metamyelocytes % Not Reportable Myelocytes % Not Reportable Promyelocytes % Not Reportable Blast Cells Not Reportable WBC Morphology Comment Normal morphology Normal morphology Normal morphology (NORM) Plt Morphology Comment Normal morphology Normal morphology Normal morphology (NORM) RBC Morph Comment Normal morphology Normal morphology Normal morphology ( NORM) ESR (0-15) MM/HR PT (9.7-11.4) secs INR (0.00-5.90) N/A Sodium 127 L 128 L 129 L (135-145) meq/L Potassium 3.9 3.9 4.2 (3.8-5.2) meq/L Chloride 90 L 91 L 98 (98-112) meq/L Carbon Dioxide 27 30 24 (23-33) meq/L Anion Gap 10 7 7 (5-20) BUN 12 12 12 (7-22) mg/dL Creatinine 0.7 0.9 0.8 (0.70-1.50) mg/dL Estimated GFR (>60 ml/min/1.73m(2)) BUN/Creatinine Ratio 17.14 13.33 15.00 (6-20) Glucose 84 87 79 (78-110) mg/dL Calculated Osmolality 262.0 L 264.0 L 266.0 L (267-292) mOsm/kg Calcium 9.2 9.2 8.6 L (8.7-10.7) mg/dL Magnesium (1.6-2.4) mg/dL Total Bilirubin 0.8 0.9 (0.3-1.2) mg/dL AST 46 41 (21-57) IU/L ALT 45 49 (21-72) IU/L Alkaline Phosphatase 159 H 159 H (38-126) IU/L Troponin I (< 0.040) ng/mL C-Reactive Protein (0.0-0.9) mg/dL Total Protein 6.7 6.5 (6.1-8.0) g/dL Albumin 4.0 3.8 (3.5-4.8) g/dL Globulin 2.7 2.7 (2.50-4.10) g/dL Albumin/Globulin Ratio 1.40 1.40 (1.3-2.0) mg/g TSH (0.2700-4.2000) uIU/mL Free T4 (0.93-1.71) ng/dL Ur Collection Type Urine Color Urine Clarity (CLEAR) Urine pH (5.0-8.5) Ur Specific [place] (1.005-1.030) U Specif Grav (Refrac) Urine Protein (NEG) mg/dl Urine Glucose (UA) (NEG) mg/dL Urine Ketones (NEG) Urine Occult Blood (NEG) Urine Nitrate (NEG) Urine Bilirubin (NEG) Urine Urobilinogen (0.2) EU/dL Ur Leukocyte Esterase (NEG) Urine RBC (NONE) /hpf Urine WBC (NONE) Ur Squamous Epith Cells (NONE) Ur Renal Epithelial Cell (NONE) Urine Crystals Urine Bacteria (NONE) Urine Casts (NONE) Urine Mucus (NONE) Urine Trichomonas (NONE) Urine Yeast (NONE) Ur Culture Indicated? Urine Opiates Screen (NEG) Ur Buprenorphine (NEG) Ur Oxycodone Screen (NEG) Urine Methadone Screen (NEG) Ur Propoxyphene Screen (NEG) Barbiturate Screen (NEG) U Tricyclic Antidepress (NEG) Phencyclidine Screen (NEG) Amphetamines Screen (NEG) U Methamphetamines Scrn (NEG) Benzodiazepines Screen (NEG) Cocaine Screen (NEG) U Marijuana (THC) Screen (NEG) Serum Alcohol (0-10) mg/dL 10/22/16 10/23/16 Range/Units 11:13 05:55 WBC 4.82 (4.8-10.8) 10^3/uL RBC 4.53 L (4.70-6.10) 10^6/uL Hgb 13.2 L (14.0-18.0) g/dL Hct 38.4 L (42.0-52.0) % MCV 84.8 (80-90) FL MCH 29.1 (27-31) PG MCHC 34.4 (33-37) g/dL RDW Std Deviation 41.8 (39-50) fL RDW Coeff of Dio 13.8 (11.5-14.5) % Plt Count 113 L (140-350) 10*3/uL MPV 9.2 (7.4-12.2) FL Immature Gran % (Auto) 0.2 (0-5) % Neut % (Auto) 73.9 (50-80) % Lymph % (Auto) 14.1 (10-50) % [place] % (Auto) 9.1 (5-15) % Eos % (Auto) 1.9 (0-8) % Baso % (Auto) 0.8 (0-1) % Immature Gran # (Auto) 0.01 10*3/UL Neut # (Auto) 3.56 10*3/UL Lymph # (Auto) 0.68 10*3/uL [place] # (Auto) 0.44 (0.3-0.8) 10*3/UL Eos # (Auto) 0.09 10*3/UL Baso # (Auto) 0.04 10*3/UL Neutrophils % (Manual) (50-80) % Band Neutrophils % (0-10) % Lymphocytes % (Manual) (10-50) % Monocytes % (Manual) (0-12) % Eosinophils % (Manual) (0-8) % Basophils % (Manual) (0-1) % Metamyelocytes % Myelocytes % Promyelocytes % Blast Cells WBC Morphology Comment Normal morphology (NORM) Plt Morphology Comment Normal morphology (NORM) RBC Morph Comment Normal morphology (NORM) ESR (0-15) MM/HR PT (9.7-11.4) secs INR (0.00-5.90) N/A Sodium 126 L 128 L (135-145) meq/L Potassium 4.5 4.2 (3.8-5.2) meq/L Chloride 97 L 95 L (98-112) meq/L Carbon Dioxide 23 25 (23-33) meq/L Anion Gap 6 8 (5-20) BUN 9 9 (7-22) mg/dL Creatinine 0.8 0.9 (0.70-1.50) mg/dL Estimated GFR (>60 ml/min/1.73m(2)) BUN/Creatinine Ratio 11.25 10.00 (6-20) Glucose 84 90 (78-110) mg/dL Calculated Osmolality 259.0 L 264.0 L (267-292) mOsm/kg Calcium 8.5 L 8.7 (8.7-10.7) mg/dL Magnesium (1.6-2.4) mg/dL Total Bilirubin 0.8 0.9 (0.3-1.2) mg/dL AST 30 29 (21-57) IU/L ALT 45 46 (21-72) IU/L Alkaline Phosphatase 137 H 134 H (38-126) IU/L Troponin I (< 0.040) ng/mL C-Reactive Protein (0.0-0.9) mg/dL Total Protein 5.9 L 6.1 (6.1-8.0) g/dL Albumin 3.4 L 3.6 (3.5-4.8) g/dL Globulin 2.5 2.6 (2.50-4.10) g/dL Albumin/Globulin Ratio 1.30 1.30 (1.3-2.0) mg/g TSH (0.2700-4.2000) uIU/mL Free T4 (0.93-1.71) ng/dL Ur Collection Type Urine Color Urine Clarity (CLEAR) Urine pH (5.0-8.5) Ur Specific [place] (1.005-1.030) U Specif Grav (Refrac) Urine Protein (NEG) mg/dl Urine Glucose (UA) (NEG) mg/dL Urine Ketones (NEG) Urine Occult Blood (NEG) Urine Nitrate (NEG) Urine Bilirubin (NEG) Urine Urobilinogen (0.2) EU/dL Ur Leukocyte Esterase (NEG) Urine RBC (NONE) /hpf Urine WBC (NONE) Ur Squamous Epith Cells (NONE) Ur Renal Epithelial Cell (NONE) Urine Crystals Urine Bacteria (NONE) Urine Casts (NONE) Urine Mucus (NONE) Urine Trichomonas (NONE) Urine Yeast (NONE) Ur Culture Indicated? Urine Opiates Screen (NEG) Ur Buprenorphine (NEG) Ur Oxycodone Screen (NEG) Urine Methadone Screen (NEG) Ur Propoxyphene Screen (NEG) Barbiturate Screen (NEG) U Tricyclic Antidepress (NEG) Phencyclidine Screen (NEG) Amphetamines Screen (NEG) U Methamphetamines Scrn (NEG) Benzodiazepines Screen (NEG) Cocaine Screen (NEG) U Marijuana (THC) Screen (NEG) Serum Alcohol (0-10) mg/dL Past Medical History Medical History: 1. Arrhythmias. 2. Depression. 3. GERD. 4. History of DVTs years ago. 5. History of orthostatic hypertension. 6. History of gout. 7. Hypothyroidism. 8. BPH for which he had surgery. 9. Diagnosed with DVT on 05/06/2015. 10. Coronary artery disease with CABG June 2015, stent in August of this year. 11. Chronic catheterization since 06/12/2016 Surgical History: 1. History of for surgery on his shoulder. 2. History of prostate surgery. 3. Left knee replacement. 4. Left hip replacement. 5. Cholecystectomy. 6. Status post CABG June 2015 Pertinent Family History: States there is heart disease in the family. Past Social History: Does not smoke or drink. for 20 years with his current . Has 6 children from prior marriages. 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 Substance Use Type: None Course of Hospitalization: Is a very nice 80-year-old the gentleman who has past medical history of severe urinary retention who is awaiting surgery at the end of December after he comes off his Plavix. He also has some baseline dementia patient started to have some word perseveration and aggressive behavioral changes which required multiple people to calm him down . He was transferred to the ER no fever no chills at that time his behavior was improved in the ER he was oriented I believe he had the relapse of his chronic urinary tract infection while in the hospital here he was treated with the 14 days of antibiotics labs are unremarkable no white count no left shift. He also had some behavioral changes while here in the hospital but was never aggressive or belligerent this was medicated with the Seroquel he is on 50 mg during the day and 70 5 at night MRI was said was also done no acute stroke I visited psychiatry which showed recommended and agreed with the Seroquel patient has been very stable over the last week initially there were going to have him go to a custodial but his decided that he would take him home at this time and see if she can manage things at home with him he has been doing physical therapy and occupational therapy I did talk to the physical therapist she said that he has good range of motion and transfers without difficulty. He does have some impulsiveness and this information was related to his . We will change his Mott catheter today before he goes and make him a follow-up appointment with his primary care physician. Patient has chronic hyponatremia which she hangs around 129 range. Today he is doing great very interactive almost back to his usual self from which the I am unable to assess since I know him before his behavioral changes that affect so overall I would say the patient is improved. On the date of discharge, the patient was examined: Gen.: No acute distress, alert, nontoxic Heart: Regular rate and rhythm, no murmurs, clicks, gallops, or rubs Lungs: Clear to auscultation bilaterally, breathing is nonlabored Abdomen/GI: Normal tones on auscultation, soft, nontender, nondistended Musculoskeletal/extremities: No clubbing, cyanosis, or edema Vitals reviewed and are listed below Vital Signs (24 hrs) Temp Pulse Pulse Resp BP BP Pulse Ox 10/23/16 08:45 68 10/23/16 06:55 97 F 70 20 139/72 95 10/23/16 05:42 98 10/23/16 05:00 97.8 F 66 18 135/62 98 10/23/16 00:31 97.6 F 65 18 120/70 97 10/22/16 20:59 97.3 F 61 18 98/46 94 10/22/16 17:00 97.4 F 71 18 122/75 96 10/22/16 11:32 98.6 F 66 18 134/73 93 Assessment and Plan: 1. As per discharge assessments above 2. Disposition: Home 3. Condition on discharge, stable and improved. 4. Diet: regular diet 5. Activities: resume normal activities 6. Follow-Up: 1. PCP October 29 at 9:[address] Sherwood 2. 7. Medications at the Time of Discharge: Home Medications Medication Instructions Recorded Confirmed Type Aspirin [Aspir 81] 81 mg PO DAILY tab 05/22/15 10/10/16 History Cholecalciferol (Vitamin D3) 2 tab PO QD tab 08/01/15 10/10/16 History [Vitamin D3] Potassium Chloride 1 cap PO QD cap 08/01/15 10/10/16 History Esomeprazole Magnesium [Nexium] 40 mg PO BID #60 cap 09/11/15 10/10/16 Clinic Nitroglycerin SL Tab [Nitrostat 0.4 mg SL as directed PRN #1 11/07/15 10/10/16 Clinic SL Tab] bottle NS Clopidogrel Bisulfate [Plavix] 75 mg PO DAILY 01/19/16 10/10/16 History L.acidoph & Paracasei,B.lactis 1 each PO DAILY 01/19/16 10/10/16 History [Probiotic] Levothyroxine Sodium 1 tab PO DAILY #90 tab 06/01/16 10/10/16 Clinic Tamsulosin HCl 1 cap PO DAILY #30 cap 06/11/16 10/10/16 Clinic Donepezil HCl [Aricept] 10 mg PO DAILY #30 tab 08/31/16 10/10/16 Clinic Alprazolam 1 tab PO QID #120 tab 09/16/16 10/10/16 Clinic Memantine HCl [Namenda Xr] 28 mg PO DAILY #30 cap 09/24/16 10/10/16 Clinic Citalopram Hydrobromide 2 tab PO QD #90 tab 10/05/16 10/10/16 Clinic [Citalopram HBr] Finasteride [Proscar] 5 mg PO DAILY #30 tab 10/23/16 Rx QUEtiapine Tab [SEROquel Tab] 50 mg PO DAILY #30 tab 10/23/16 Rx QUEtiapine Tab [SEROquel Tab] 75 mg PO BEDTIME #30 tab 10/23/16 Rx 8. Time, care, counseling and coordination of care for this discharge is greater than 30 minutes. Exam - Vitals Vital Signs: Vital Signs Temperature 97 F Temperature Source Temporal Artery Scan Pulse Rate [Apical] 68 Pulse Rate [Pulse Oximeter] 70 Pulse Rate 66 Respiratory Rate 20 Blood Pressure [Left Arm] 135/62 Blood Pressure [Right Arm] 139/72 Pulse Ox 95 Oxygen Delivery Method Room Air Height 5 ft 10 in Weight 79.923 kg Patient Problems - Patient Problem List (1) UTI (urinary tract infection) Current Visit: No Status: Acute (2) Altered mental status Current Visit: Yes Status: Acute (3) Anxiety Current Visit: No Status: Acute (4) Prostatic hypertrophy Current Visit: No Status: Acute (5) Urinary retention due to benign prostatic hyperplasia Current Visit: No Status: Acute (6) Hyponatremia syndrome Current Visit: Yes Status: Acute
[2016-10-23] MEDS ORDERED: LIDOCAINE HCL 2 % 10 ML JELLY URO-JECT TOPICAL ONE (10:46)
--- NOTE | 2016-10-23 11:24 | OT PM DAY ---
Diagnosis : Weakness PM - Occupational Therapy S: The patient reports he is doing okay this afternoon. O: Today we worked on ADLs and therapeutic exercises. The patient performed a transfer from the bed to the chair with wheeled walker and contact guard assist. The patient does need verbal cues for all directions including turning and sitting; he is able to follow one step directions. The patient was able to use a blue theraband for biceps curls x25 repetitions for flexion, internal/external rotation, shoulder extension, shoulder adduction, and triceps. The patient did need verbal cues and encouragement to continue if he lost track of the numbers. He then performed hand strengthening with blue putty for gross grasp and tip pinch. During this time the therapist smelled a bowel movement. The patient reported he did not have to go to the bathroom; however, when the OT assessed the situation, the patient was starting to have a bowel movement. The patient needed verbal cues to get to the bathroom and verbal cues to pull down his pants and his Depends. The patient sat on the toilet and had a large bowel movement. We tried to have the patient wipe self; he required verbal cues but was able to do so after cues were given. He needed cues to flush the toilet. The patient stood at the sink x4 minutes to complete hygiene activities including washing his hands and his face with contact guard assist. The patient then transferred back to his chair. A: The patient's strength is pretty good for ADLs. His cognition is our most limiting factor at this time. He requires verbal cues and assistance to initiate and to complete tasks; even turning in the room to go from one destination to another. The patient's has requested in-room therapy only. P: Continue seeing patient BID during the week and one time per day over the weekend for upper extremity strengthening, ADLs, and overall functional mobility. EMMA
--- NOTE | 2016-10-23 11:42 | OT AM DAY ---
Diagnosis : Weakness AM - Occupational Therapy S: The patient's was present upon the therapist's arrival. She states that he has been doing well with his exercises. The patient did agree to get up and go for a walk. O: The patient was seen in his room. He ambulated around the hallway of the third floor, approximately 150 feet total. The patient was very impulsive during turns and needed cues on which way to go. He returned to his room and sat in his chair. At this time the patient appeared agitated but agreed to perform some exercises. We attempted to complete some upper extremity exercises with the blue theraband; however, the patient was very uncooperative and became very agitated and therapy was stopped. A: Following treatment, the patient's did approach the therapist and did request that the therapist not see the patient, stating that the therapist irritated the patient. The patient does become agitated very easily. He does transfer very well with cues. We will continue to monitor his frustration during therapy. P: Continue seeing patient BID during the week and one time per day over the weekend for upper extremity strengthening, ADLs, and overall functional mobility. MTDD
--- NOTE | 2016-10-23 12:22 | OT AM DAY ---
Diagnosis : Weakness AM - Occupational Therapy S: The patient was in his room upon the therapist's arrival. The patient was willing to complete some upper extremity exercises. O: The patient completed upper extremity exercises with blue theraband x20 repetitions x2 sets in all directions including horizontal abduction, shoulder extension, elbow flexion, triceps punches, and rows. A: The patient did well. The patient did comment that these activities didn 't make him very tired; however, the patient wasn't willing to do much more with therapy at this time. P: Continue seeing patient BID during the week and one time per day over the weekend for upper extremity strengthening, ADLs, and overall functional mobility. MTDD
== END 2016-10-23 11:11 | disposition home or self-care (01) | DRG 690 ==
LOC: ER 17:48 → MED/SURG 19:34
PROVIDERS: ADMIT Internal Medicine; ATTEND Internal Medicine
DX: N39.0 Urinary tract infection, site not specified (principal); E22.2 Syndrome of inappropriate secretion of antidiuretic hormone; I25.798 Atherosclerosis of other coronary artery bypass graft(s) with other forms of angina pectoris; R41.82 Altered mental status, unspecified; F41.9 Anxiety disorder, unspecified; N40.0 Benign prostatic hyperplasia without lower urinary tract symptoms; N40.1 Benign prostatic hyperplasia with lower urinary tract symptoms; R33.8 Other retention of urine; E03.9 Hypothyroidism, unspecified
CPT/HCPCS: 36415; 70450; 70551; 71010; 80048; 80053; 80305; 80320; 81001; 81003; 83735; 84439; 84443; 84484; 85007; 85025; 85610; 85652; 86140; 87040; 87077; 87088; 87186; 93005; 93010; 94761; 97110; 97116; 97162; 97166; 97530; 97535; 99284; J0696; J1644; J1940; J2020; J2405; J7030; J7050; J7512

== ENCOUNTER 2016-10-28 20:34 | Inpatient (IN) | payer OTHER, MEDICARE ==
[2016-10-28] MEDS ORDERED: NORMAL SALINE 10 ML SYRINGE FLUSH IVP PRN (20:44)
[2016-10-28] MEDS ORDERED: Sodium Chloride 0.9% 1,000 ML PRIMARY IV ONE (20:44)
[2016-10-28] MEDS ORDERED: LORazepam 2 MG/1 ML VIAL IVP ONE (20:46)
--- NOTE | 2016-10-28 21:00 | EKG ---
[address] [address] Measurements Intervals [place] Rate: 90 P: -57 [place]: 158 QRS: 58 QRSD: 115 T: 78 QT: 374 QTc: 421 Interpretive Statements SINUS RHYTHM WITH FREQUENT VENTRICULAR PREMATURE COMPLEXES AND SUPRAVENTRICULAR PREMATURE COMPLEXES & 1st degree AV block INDETERMINATE AXIS MODERATE INTRAVENTRICULAR CONDUCTION DELAY [110+ ms QRS DURATION] MINIMAL ST DEPRESSION [0.025+ mV ST DEPRESSION] Compared to ECG 10/10/2016 19:19:16 Ventricular premature complex(es), indeterminate axis and conduction delay now present ST (T wave) deviation now present Myocardial infarct finding no longer present T-wave abnormality no longer present Possible ischemia no longer present [email or web address]
[2016-10-28 21:26] LABS: BASOPHILS # (AUTO) 0.04 10*3/UL; BASOPHILS % (AUTO) 0.6 % (0-1); EOSINOPHILS # (AUTO) 0.13 10*3/UL; EOSINOPHILS % (AUTO) 1.8 % (0-8); HEMATOCRIT 38.2 % (42.0-52.0); HEMOGLOBIN 13.2 g/dL (14.0-18.0); LYMPHOCYTES # (AUTO) 0.68 10*3/uL; MEAN CORPUSCULAR HEMOGLOBIN 29.7 PG (27-31); MEAN CORPUSCULAR HGB CONC 34.6 g/dL (33-37); MEAN PLATELET VOLUME 9.7 FL (7.4-12.2); MONOCYTES # (AUTO) 0.58 10*3/UL (0.3-0.8); MONOCYTES % (AUTO) 8.2 % (5-15); NEUTROPHILS # (AUTO) 5.61 10*3/UL; NEUTROPHILS % (AUTO) 79.7 % (50-80); RED BLOOD COUNT 4.44 10^6/uL (4.70-6.10)
[2016-10-28 21:31] LABS: PLATELET MORPHOLOGY COMMENT NORMAL MORPHOLOGY (NORM); RBC MORPHOLOGY COMMENT NORMAL MORPHOLOGY (NORM); WBC MORPHOLOGY COMMENT NORMAL MORPHOLOGY (NORM)
[2016-10-28 21:37] LABS: BUN/CREATININE RATIO 9.09 (6-20); C-REACTIVE PROTEIN 1.2 mg/dL (0.0-0.9); CALCIUM 9.3 mg/dL (8.7-10.7); MAGNESIUM 2.2 mg/dL (1.6-2.4); SERUM ALBUMIN 4.1 g/dL (3.5-4.8)
[2016-10-28 21:44] LABS: BILIRUBIN,URINE SMALL (NEG); CLARITY,URINE TURBID (CLEAR); COLOR,URINE RED; GLUCOSE, URINE (UA) NEGATIVE (NEG); NITRATE,URINE NEGATIVE (NEG); OCCULT BLOOD,URINE LARGE (NEG); PROTEIN,URINE >300 mg/dl (NEG); UROBILINOGEN,URINE 0.2 EU/dL (0.2)
[2016-10-28 21:45] LABS: URINE SAMPLE TYPE CATH SPECIMEN
[2016-10-28 21:46] LABS: BACTERIA,URINE FEW; RBC,URINE >100 /hpf; WBC,URINE 20-50
--- NOTE | 2016-10-28 21:57 | DI ---
AP CHEST X-RAY, 10/28/2016 8:44 PM : Clinical History: Confusion. Previous Exam: 10/10/2016. There is no acute soft tissue or bony abnormality. Heart size is normal. Lungs are clear. There is pu lmonary arterial hypertension. There are no pulmonary nodules. There is superior subluxation of the l eft humeral head with erosive changes on the undersurface of the acromion in a pattern typical of a c hronic rotator cuff tear. Readin. There is no acute infiltrate or effusion. 2. Pulmonary arterial hypertension.
[2016-10-28 22:12] LABS: VENOUS PH 7.42 (7.32-7.42)
--- NOTE | 2016-10-28 22:15 | DI ---
CT HEAD SCAN WITHOUT IV CONTRAST, 10/28/2016 8:44 PM : Clinical History: Confusion. Previous Exam: 11/13/2014; 01/01/2016; and 10/10/2016. Scans are obtained from the foramen magnum to the vertex without IV contrast. The 4th, 3rd, and lateral ventricles are of normal size, shape, position, and contour for the patient 's age. There is no evidence of an acute hemorrhagic or bland infarct. There are multiple punctate pe riventricular white matter lucencies bilaterally that extend into the watershed territory, consistent with small vessel ischemic disease. This amount of ischemic disease is appropriate for the patient's age. 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 There is moderately severe cerebral atrophy but there is also more focal atrophic change in the r egion of the left temporal lobe primarily the temporal operculum and the left insular cortex. This wa s present before and has not changed. There is mild cerebellar atrophy. There are no extracerebral ma ntles or shift of the midline structures. Bone window evaluation is normal. The paranasal sinuses are normal. READIN. There is no acute hemorrhagic or bland infarct. 2. Small vessel ischemic disease appropriate for the patient's age. 3. There is moderate cerebral atrophy and mild cerebellar atrophy. There is more focal atrophic turner ge in the region of the left temporal lobe and insular cortex than on the right side without evidence of an old infarct. This was present on the prior exams and has not changed.
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
[2016-10-28] MEDS ORDERED: ACETAMINOPHEN 325 MG TABLET PO PRN (23:22)
[2016-10-28] MEDS ORDERED: LIDOCAINE W/ SODIUM BICARB 0.5 ML SYR SUBD PRN (23:22)
[2016-10-28] MEDS ORDERED: ONDANSETRON 4 MG/2 ML VIAL IVP PRN (23:22)
[2016-10-28] MEDS ORDERED: NITROGLYCERIN 0.4 MG SL TAB (BOTTLE OF 3) SL PRN (23:22)
[2016-10-28] MEDS ORDERED: HALOPERIDOL LACTATE 5 MG/1 ML AMPULE IM PRN (23:57)
--- NOTE | 2016-10-29 00:18 | PDOC ---
History and Physical - History of Present Illness Date and Time of Service: 10/28/2016, 0535 Chief Complaint: Confusion History of Present Illness: This is an 80-year-old male well known to the hospital service with recurrent urinary tract infections, BPH requiring chronic Mott catheterization ( apparently awaiting TURP procedure or laser TURP but can't have done by urology due to his Plavix), dementia, coronary artery disease, and hypothyroidism, and ventricular arrhythmias, who presents with his santosh after an episode of confusion at home. The patient has not had any fevers or chills. He denied any abdominal pain. There's been no louie blood in the urine. He has not had any flank pain. His white count was normal on admission to the emergency room. However tonight, the patient started pacing without any direction as to where he was going and became rigid in his upper extremities and more confused. Patient's is concerned about the symptoms and thought he might be having a stroke. She brought him in for evaluation. He's had recurrent urinary tract infections, but the last 3 cultures have had Enterococcus faecalis and staph epidermidis grow out consistently. He literally just finished a 14 day course of antibiotics on the or 23 of October. The patient has reportedly had increasing confusion over the last 3-4 months in particular at home. He has known dementia which has worsened since his coronary artery bypass grafting that was done in the past. I did a SLUMS evaluation, and the patient scored 1 out of 30. He has been more agitated, and medication such as Namenda, Aricept, Seroquel, and Xanax, have not made much difference in terms of the mental status. The patient's agitation has become overbearing at times, although no documented physical abuse has been noted. Due to this agitation and the presentation with his arms tonight, the thought that patient may have had a stroke, he was brought in for evaluation. I will note a head CT scan was done and it was negative for any acute bleed. 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 It has not changed in appearance and there's been no evidence of stroke. The patient did not recall any workup for seizures in the past nor did his . She was an extremely poor historian, had no recollection of events tonight, and the vast majority of the history was obtained from the this evening. Past Medical History Medical History: 1. Arrhythmias. 2. Depression. 3. GERD. 4. History of DVTs years ago. 5. History of orthostatic hypertension. 6. History of gout. 7. Hypothyroidism. 8. BPH for which he had surgery. 9. Diagnosed with DVT on 05/06/2015. 10. Coronary artery disease with CABG June 2015, stent in December 2015, still on Plavix. 11. Chronic catheterization since 06/12/2016, the patient's reports that he had some sort of scope done in the urology office and it was felt that his prostate was too enlarged to remove the catheter at any time. Surgical History: 1. History of for surgery on his shoulder. 2. History of prostate surgery. 3. Left knee replacement. 4. Left hip replacement. 5. Cholecystectomy. 6. Status post CABG June 2015. 7. Stents 2, once in August and then once in December 2015. Pertinent Family History: States there is heart disease in the family. Past Social History: Does not smoke or drink. for 20 years with his current . Has 6 children from prior marriages. 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 Lives with his here in [place] Tobacco Use: Never Smoker Substance Use Type: None Alcohol Use: None Medication / Allergies Home Medications: Home Medications Medication Instructions Recorded Confirmed Type Aspirin [Aspir 81] 81 mg PO DAILY tab 05/22/15 10/28/16 History Cholecalciferol (Vitamin D3) 2 tab PO QD tab 08/01/15 10/28/16 History [Vitamin D3] Potassium Chloride 1 cap PO QD cap 08/01/15 10/28/16 History Nitroglycerin SL Tab [Nitrostat 0.4 mg SL as directed PRN #1 11/07/15 10/28/16 Clinic SL Tab] bottle NS Clopidogrel Bisulfate [Plavix] 75 mg PO DAILY 01/19/16 10/28/16 History L.acidoph & GracielaB.lactis 1 each PO DAILY 01/19/16 10/28/16 History [Probiotic] Levothyroxine Sodium 1 tab PO DAILY #90 tab 06/01/16 10/28/16 Clinic Donepezil HCl [Aricept] 10 mg PO DAILY #30 tab 08/31/16 10/28/16 Clinic Alprazolam 1 tab PO QID #120 tab 09/16/16 10/28/16 Clinic Memantine HCl [Namenda Xr] 28 mg PO DAILY #30 cap 09/24/16 10/28/16 Clinic Citalopram Hydrobromide 2 tab PO QD #90 tab 10/05/16 10/28/16 Clinic [Citalopram HBr] Finasteride [Proscar] 5 mg PO DAILY #30 tab 10/23/16 10/28/16 Rx QUEtiapine Tab [SEROquel Tab] 50 mg PO DAILY #30 tab 10/23/16 10/28/16 Rx QUEtiapine Tab [SEROquel Tab] 75 mg PO BEDTIME #30 tab 10/23/16 10/28/16 Rx Esomeprazole Magnesium [Nexium 22.3 mg PO BID 10/28/16 10/28/16 History 24Hr] Allergies/Adverse Reactions: Allergies Allergy/AdvReac Type Severity Reaction Status Date / Time lisinopril Allergy Severe Anaphylaxis Verified 10/28/16 23:31 ciprofloxacin [From Cipro] Allergy Intermediate RASH Verified 10/28/16 23:31 fluoxetine HCl [From Prozac] Allergy Intermediate VOMITING Verified 10/28/16 23: 31 Penicillins Allergy Intermediate RASH Verified 10/28/16 23:31 rivaroxaban [From Xarelto] Allergy Intermediate multiple Verified 10/28/16 23:31 problems tomato Allergy Intermediate HIVES Verified 10/28/16 23:31 docosahexanoic ac Allergy Mild ITCHING Verified 10/28/16 23:31 *RETIRED-04/21/12 [From [place]-3 Fish Oil] sulfamethoxazole AdvReac Intermediate burning Verified 10/28/16 23:31 [From Bactrim] diarrhea in stomach and rectum went away stopping trimethoprim [From Bactrim] AdvReac Intermediate burning Verified 10/28/16 23:31 diarrhea in stomach and rectum went away stopping metoprolol AdvReac Mild SEVERE Verified 10/28/16 23:31 HYPOTENSION Review of Systems - Review of Systems ROS Unobtainable: Due to Mental Status (I cannot obtain an adequate review of systems due to the patient's dementia. Some exceptions are noted below.) - Constitutional Constitutional: REPORTS: General Health Poor, Other (Patient and deny any fever, chills, but the states that the patient has had a poor appetite) - Respiratory Respiratory: DENIES: Negative System Review, Cough, Sputum, Dyspnea At Rest, Dyspnea with Exertion, Pleuritic Pain, Hemoptysis, Wheezing, Other, See HPI - Cardiovascular Cardiovascular: DENIES: Negative System Review, Chest Pain, Edema, Syncope, Palpitations, Orthopnea, Paroxysmal Nocturnal Dyspnea, Other, See HPI - Neurological Neurologic: REPORTS: Memory Loss (Worsened.), Other (Poor sleep cycle.) - Psychiatric Psychiatric: REPORTS: Anxiety, Other (Gets agitated frequently.) Exam - Vitals Vital Signs: Vital Signs Temperature 97.5 F Temperature Source Temporal Artery Scan Pulse Rate [Apical] 36 Pulse Rate 70 Respiratory Rate 12 Blood Pressure [Left Arm] 129/47 Blood Pressure 117/53 Pulse Ox 94 Oxygen Delivery Method Room Air Height 5 ft 10 in Weight 174 lb - General General Appearance: POSITIVE: No Acute Distress, Cooperative (Cooperative for examination although the [facility] MS evaluation did frustrate him.) - Head Head Exam: POSITIVE: Normal Inspection, Normocephalic, Atraumatic - Eye Eye Exam: POSITIVE: No Scleral Icterus - ENT ENT Exam: POSITIVE: Mucous Membranes Moist - Neck Neck Exam: POSITIVE: Normal Inspection, No Tenderness, No Thyromegaly - Respiratory Respiratory Exam: POSITIVE: Clear to Auscultation - Bilaterally, Breathing Non Labored, Normal to Percussion and Palpation - Cardiovascular Cardiovascular Exam: POSITIVE: No Murmur, No Clicks, No Gallops, No Rubs, PMI Non-Displaced, No JVD - GI/Abdominal GI/Abdominal Exam: POSITIVE: Normal Bowel Sounds, Non Tender, Non Distended, Soft - Rectal Rectal Exam: POSITIVE: Deferred - External Exam: POSITIVE: Deferred Exam: POSITIVE: Mott Catheter in Place Additional Exam Details: Urine appears clear. No suprapubic tenderness - Extremities Extremities Exam: POSITIVE: No Clubbing Present, No Edema Present, No Cyanosis Present - Back Back Exam: POSITIVE: Normal Inspection, No CVA Tenderness - Neurological Neurological Exam: POSITIVE: Alert, No Facial Droop, Speech Intact / Clear, Moves All Extremities Equally Additional Neurological Exam Details: Oriented to person. Knows he is in the hospital. Does not understand why he is in the hospital and is not oriented to time. - Psychiatric Psychiatric Exam: POSITIVE: Agitated - Integumentary Integumentary Exam: POSITIVE: Normal Color, Warm, Dry, Intact Additional Integumentary Exam Details: Ecchymosis on upper extremities consistent with anticoagulants and with multiple IV sticks. Results - Labs CBC and BMP: 10/28/16 21:20 10/28/16 21:20 Labs - Last 24 Hours: Laboratory Results 10/28/16 10/28/16 10/28/16 Range/Units 21:16 21:20 21:37 WBC 7.05 (4.8-10.8) 10^3/uL RBC 4.44 L (4.70-6.10) 10^6/uL Hgb 13.2 L (14.0-18.0) g/dL Hct 38.2 L (42.0-52.0) % MCV 86.0 (80-90) FL MCH 29.7 (27-31) PG MCHC 34.6 (33-37) g/dL RDW Std Deviation 42.7 (39-50) fL RDW Coeff of Dio 14.0 (11.5-14.5) % Plt Count 127 L (140-350) 10*3/uL MPV 9.7 (7.4-12.2) FL Immature Gran % (Auto) 0.1 (0-5) % Neut % (Auto) 79.7 (50-80) % Lymph % (Auto) 9.6 L (10-50) % [place] % (Auto) 8.2 (5-15) % Eos % (Auto) 1.8 (0-8) % Baso % (Auto) 0.6 (0-1) % Immature Gran # (Auto) 0.01 10*3/UL Neut # (Auto) 5.61 10*3/UL Lymph # (Auto) 0.68 10*3/uL [place] # (Auto) 0.58 (0.3-0.8) 10*3/UL Eos # (Auto) 0.13 10*3/UL Baso # (Auto) 0.04 10*3/UL WBC Morphology Comment Normal morphology (NORM) Plt Morphology Comment Normal morphology (NORM) RBC Morph Comment Normal morphology (NORM) VBG pH 7.42 (7.32-7.42) VBG pCO2 31 L (45-55) mmHg VBG HCO3 20 L (22-26) mmol/L VBG Base Excess -5 L (-2-2) MMOL/L Sodium 133 L (135-145) meq/L Potassium 4.3 (3.8-5.2) meq/L Chloride 97 L (98-112) meq/L Carbon Dioxide 21 L (23-33) meq/L Anion Gap 15 (5-20) BUN 10 (7-22) mg/dL Creatinine 1.1 (0.70-1.50) mg/dL Estimated GFR (>60 ml/min/1.73m(2)) BUN/Creatinine Ratio 9.09 (6-20) Glucose 106 (78-110) mg/dL Calculated Osmolality 274.0 (267-292) mOsm/kg Lactic Acid 5.8 H (0.70-2.10) MMOL/L Calcium 9.3 (8.7-10.7) mg/dL Magnesium 2.2 (1.6-2.4) mg/dL Total Bilirubin 0.7 (0.3-1.2) mg/dL AST 24 (21-57) IU/L ALT 32 (21-72) IU/L Alkaline Phosphatase 138 H (38-126) IU/L Total Creatine Kinase 154 (55-170) IU/L Troponin I < 0.012 (< 0.040) ng/mL C-Reactive Protein 1.2 H (0.0-0.9) mg/dL Total Protein 6.7 (6.1-8.0) g/dL Albumin 4.1 (3.5-4.8) g/dL Globulin 2.6 (2.50-4.10) g/dL Albumin/Globulin Ratio 1.50 (1.3-2.0) mg/g Ur Collection Type Cath specimen Urine Color Red Urine Clarity Turbid (CLEAR) Urine pH 7.0 (5.0-8.5) Ur Specific [place] 1.020 (1.005-1.030) Urine Protein >300 (NEG) mg/dl Urine Glucose (UA) Negative (NEG) mg/dL Urine Ketones Negative (NEG) Urine Occult Blood Large H (NEG) Urine Nitrate Negative (NEG) Urine Bilirubin Small (NEG) Urine Urobilinogen 0.2 (0.2) EU/dL Ur Leukocyte Esterase Moderate (NEG) Urine RBC >100 (NONE) /hpf Urine WBC 20-50 (NONE) Ur Squamous Epith Cells None (NONE) Ur Renal Epithelial Cell None (NONE) Urine Crystals None Urine Bacteria Few (NONE) Urine Casts None (NONE) Urine Mucus Moderate (NONE) Urine Trichomonas None (NONE) Urine Yeast None (NONE) Ur Culture Indicated? Culture set - EKG Data -: EKG Interpreted by Me EKG Shows Normal: Sinus Rhythm - EKG Data EKG Interpretation: Nonspecific ST-T Wave Changes, Other (Episodes of bigeminy.) - Imaging Status: Image Reviewed by Me (CT of head does not show any evidence of bleed. Radiologist read that the temporal lobe on the left side appears more degenerative than the right side, and I would agree that it has a different appearance.) Assessment and Plan - Patient Problems (1) Altered mental status Current Visit: Yes Status: Acute Qualifiers: Altered mental status type: unspecified Qualified Description: Altered mental status, unspecified altered mental status type Qualifier Code(s): ( R41.82) Altered mental status, unspecified (2) Indwelling catheter present on admission Current Visit: Yes Status: Acute (3) BPH (benign prostatic hyperplasia) Current Visit: Yes Status: Acute Qualifiers: Prostatic enlargement morphology: unspecified morphology Lower urinary tract symptom presence: symptoms present Qualified Description: Benign prostatic hyperplasia with lower urinary tract symptoms, unspecified morphology Qualifier Code(s): (N40.1) Benign prostatic hyperplasia with lower urinary tract symptoms (4) Coronary artery disease Current Visit: Yes Status: Chronic Qualifiers: Coronary Disease-Associated Artery/Lesion type: bypass graft [place] vs. transplanted heart: [place] heart Associated angina: without angina Qualified Description: Coronary artery disease involving coronary bypass graft of [place] heart without angina pectoris Qualifier Code(s): (I25.810) Atherosclerosis of coronary artery bypass graft(s) without angina pectoris (5) Dementia Current Visit: Yes Status: Acute Qualifiers: Dementia type: Alzheimer's disease Alzheimer's disease onset: late- onset Dementia behavioral disturbance: with behavioral disturbance Qualified Description: Late onset Alzheimer's disease with behavioral disturbance Qualifier Code(s): (G30.1) Alzheimer's disease with late onset , (F02.81) Dementia in other diseases classified elsewhere with behavioral disturbance (6) Hyponatremia syndrome Current Visit: Yes Status: Chronic (7) Hypothyroidism Current Visit: Yes Status: Chronic Qualifiers: Hypothyroidism type: acquired Qualified Description: Acquired hypothyroidism Qualifier Code(s): (E03.9) Hypothyroidism, unspecified (8) Ventricular bigeminy Current Visit: Yes Status: Chronic - Assessment / Plan Additional Assessment/Plan Details: Admit the patient. This very complex situation in a patient with a chronic indwelling Mott catheter. The patient has not been able to proceed with any urologic procedures to help open the prostate to allow the urination without a catheter. This is created a difficult scenario in which the patient has asymptomatic bacteriuria and recurrent urinary tract infections. He could have one tonight, present on admission, but what makes me think he probably does not have a urinary tract infection is that he has no flank pain, no suprapubic tenderness, no hypotension, no fever, and no elevation in his white blood cell count. I suspect overall, that he probably has asymptomatic bacteriuria and is probably altered in the setting of his dementia, medications, and so a other factors. At this point, I think stopping his medications for dementia may make some sense. He's not really having great response to this and his dementia is fairly advanced. Very well and the patient's reports that he is having more sleep disturbances and only sleeping about 2 hours a night. With the temporal lobe finding, may be worthwhile to send MRI and CT scan up to [facility] and have the neurologist take a look at these. I question whether or not there might be seizure activity in this setting. Given his symptoms tonight of eating fairly rigid and pacing and having no recollection or recall of these events, this could certainly be a seizure and it would be in the differential. Continue medications for coronary artery disease. I spoke with cardiology and they stated that the patient would be cleared for TURP surgery if necessary and that going off Plavix would be okay at this point, with a 1% or so risk of in- stent restenosis. The only other option really would be to continue until the end of December and then stop Plavix. I will try to get urology notes. Maybe we can try voiding trial without the catheter and see if the patient does okay with that. DO NOT RESUSCITATE/DO NOT INTUBATE. Get case management involved. Hold off on antibiotics until we see culture results. If the patient develops any other symptoms consistent with urinary tract infection, broaden out coverage to cover enterococcus. IV fluids tonight. Pain control. Start with Tylenol and workup from there. I did a mental state examination, the U MS exam, the patient was very agitated and frustrated with these questions. He asked repeatedly to go home if there was no infection, but I don't think he has a mental capabilities of being able to manage at home, nor do I think the patient's can help take care of him there. In addition we still should rule out, to the best of our ability, urinary tract infection present on admission. We should wait for culture results before we make any decisions on disposition and management.
[2016-10-29] MEDS: Sodium Chloride 0.9% 1,000 ML PRIMARY IV SCH ×3 (00:45→16:46)
[2016-10-29] MEDS: LEVOTHYROXINE 75 MCG TABLET PO SCH (05:50)
[2016-10-29 06:39] LABS: BASOPHILS # (AUTO) 0.06 10*3/UL; BASOPHILS % (AUTO) 1.3 % (0-1); EOSINOPHILS # (AUTO) 0.08 10*3/UL; EOSINOPHILS % (AUTO) 1.7 % (0-8); HEMATOCRIT 35.1 % (42.0-52.0); LYMPHOCYTES # (AUTO) 0.64 10*3/uL; MEAN CORPUSCULAR HEMOGLOBIN 29.6 PG (27-31); MEAN CORPUSCULAR HGB CONC 34.2 g/dL (33-37); MEAN CORPUSCULAR VOLUME 86.7 FL (80-90); MEAN PLATELET VOLUME 9.9 FL (7.4-12.2); MONOCYTES # (AUTO) 0.43 10*3/UL (0.3-0.8); NEUTROPHILS # (AUTO) 3.58 10*3/UL; NEUTROPHILS % (AUTO) 74.5 % (50-80); RED BLOOD COUNT 4.05 10^6/uL (4.70-6.10)
[2016-10-29 06:57] LABS: CALCIUM 8.6 mg/dL (8.7-10.7)
[2016-10-29 06:59] LABS: PLATELET MORPHOLOGY COMMENT NORMAL MORPHOLOGY (NORM); RBC MORPHOLOGY COMMENT NORMAL MORPHOLOGY (NORM); WBC MORPHOLOGY COMMENT NORMAL MORPHOLOGY (NORM)
[2016-10-29] MEDS: Potassium Chloride Tab 10 MEQ TAB PO SCH (08:44)
[2016-10-29] MEDS: ASPIRIN EC 81 MG TABLET PO SCH (08:44)
[2016-10-29] MEDS: CHOLECALCIFEROL 1000 IU TABLET PO SCH (08:44)
[2016-10-29] MEDS: CLOPIDOGREL 75 MG TABLET PO SCH (08:44)
[2016-10-29] MEDS ORDERED: PARACASEI B LACTIS PO SCH (09:00)
[2016-10-29] MEDS ORDERED: CITALOPRAM 20 MG TABLET PO SCH (09:00)
[2016-10-29] MEDS ORDERED: FINASTERIDE 5 MG TABLET PO SCH (09:00)
[2016-10-29] MEDS ORDERED: QUEtiapine Tab 25 MG TAB PO SCH ×2 (09:00→21:00)
[2016-10-29] MEDS ORDERED: ACIDOPH PO SCH (09:00)
[2016-10-29] MEDS ORDERED: ALPRAZolam Tab 0.25 MG TABLET PO SCH (09:00)
[2016-10-29] MEDS ORDERED: DONEPEZIL 5 MG TABLET PO SCH (09:00)
--- NOTE | 2016-10-29 14:45 | PDOC(PROG) ---
Date and Time of Service: 10/29/2016, 1440 Interval History: Denies chest pain, denies shortness of breath. Had no problems overnight. Is much more calm and relaxed off of medications at this point. Has not had any aggressive behavior to this point. I did discuss his CT scan and MRI scan with neurology in [place], and they suggested that seizures could certainly explain some of his behavior episodes where he becomes more in a trance and has stiffening of his arms like his described last night. We will start him on some Keppra, but otherwise taking him off of medications has significantly improved his overall mood and behavior state. Objective : Data - Labs CBC and BMP: 10/29/16 06:18 10/29/16 06:18 Labs - Last 24 Hours: Laboratory Results 10/29/16 Range/Units 06:18 WBC 4.80 (4.8-10.8) 10^3/uL RBC 4.05 L (4.70-6.10) 10^6/uL Hgb 12.0 L (14.0-18.0) g/dL Hct 35.1 L (42.0-52.0) % MCV 86.7 (80-90) FL MCH 29.6 (27-31) PG MCHC 34.2 (33-37) g/dL RDW Std Deviation 42.5 (39-50) fL RDW Coeff of Dio 13.9 (11.5-14.5) % Plt Count 114 L (140-350) 10*3/uL MPV 9.9 (7.4-12.2) FL Immature Gran % (Auto) 0.2 (0-5) % Neut % (Auto) 74.5 (50-80) % Lymph % (Auto) 13.3 (10-50) % [place] % (Auto) 9.0 (5-15) % Eos % (Auto) 1.7 (0-8) % Baso % (Auto) 1.3 H (0-1) % Immature Gran # (Auto) 0.01 10*3/UL Neut # (Auto) 3.58 10*3/UL Lymph # (Auto) 0.64 10*3/uL [place] # (Auto) 0.43 (0.3-0.8) 10*3/UL Eos # (Auto) 0.08 10*3/UL Baso # (Auto) 0.06 10*3/UL WBC Morphology Comment Normal morphology (NORM) Plt Morphology Comment Normal morphology (NORM) RBC Morph Comment Normal morphology (NORM) Sodium 134 L (135-145) meq/L Potassium 4.5 (3.8-5.2) meq/L Chloride 106 (98-112) meq/L Carbon Dioxide 22 L (23-33) meq/L Anion Gap 6 (5-20) BUN 7 (7-22) mg/dL Creatinine 0.7 (0.70-1.50) mg/dL Estimated GFR (>60 ml/min/1.73m(2)) BUN/Creatinine Ratio 10.00 (6-20) Glucose 87 (78-110) mg/dL Calculated Osmolality 274.0 (267-292) mOsm/kg Calcium 8.6 L (8.7-10.7) mg/dL Objective : Exam - General General Appearance: No Acute Distress, Cooperative Additional General Exam Details: Vital Signs - Last Taken Temperature 97.7 F 10/29/16 12:26 Pulse Rate 90 10/29/16 12:26 Respiratory Rate 16 10/29/16 12:26 Blood Pressure 136/56 10/29/16 12:26 Pulse Ox 98 10/29/16 12:26 - Eye Eye Exam: No Scleral Icterus - Respiratory Respiratory Exam: Clear to Auscultation - Bilaterally, Breathing Non Labored - Cardiovascular Cardiovascular Exam: No Murmur, No Clicks, No Gallops, No Rubs, Irregular Rhythm (Has bigeminy and occasional bradycardia.), No JVD - GI/Abdominal GI/Abdominal Exam: Normal Bowel Sounds, Non Tender, Non Distended, Soft - Exam: Mott Catheter in Place (Urine appears clear in catheter) - Extremities Extremities Exam: No Clubbing Present, No Edema Present, No Cyanosis Present - Neurological Neurological Exam: Alert, CN II-XII Intact, No Facial Droop, Moves All Extremities Equally Assessment and Plan - Patient Problems (1) Seizure-like activity Current Visit: Yes Status: Acute (2) Urinary retention due to benign prostatic hyperplasia Current Visit: Yes Status: Chronic (3) Indwelling catheter present on admission Current Visit: Yes Status: Acute (4) BPH (benign prostatic hyperplasia) Current Visit: Yes Status: Acute Qualifiers: Prostatic enlargement morphology: unspecified morphology Lower urinary tract symptom presence: symptoms present Qualified Description: Benign prostatic hyperplasia with lower urinary tract symptoms, unspecified morphology Qualifier Code(s): (N40.1) Benign prostatic hyperplasia with lower urinary tract symptoms (5) Coronary artery disease Current Visit: Yes Status: Chronic Qualifiers: Coronary Disease-Associated Artery/Lesion type: bypass graft [place] vs. transplanted heart: [place] heart Associated angina: without angina Qualified Description: Coronary artery disease involving coronary bypass graft of [place] heart without angina pectoris Qualifier Code(s): (I25.810) Atherosclerosis of coronary artery bypass graft(s) without angina pectoris (6) Dementia Current Visit: Yes Status: Acute Qualifiers: Dementia type: Alzheimer's disease Alzheimer's disease onset: late- onset Dementia behavioral disturbance: with behavioral disturbance Qualified Description: Late onset Alzheimer's disease with behavioral disturbance Qualifier Code(s): (G30.1) Alzheimer's disease with late onset , (F02.81) Dementia in other diseases classified elsewhere with behavioral disturbance (7) Hyponatremia syndrome Current Visit: Yes Status: Chronic (8) Hypothyroidism Current Visit: Yes Status: Chronic Qualifiers: Hypothyroidism type: acquired Qualified Description: Acquired hypothyroidism Qualifier Code(s): (E03.9) Hypothyroidism, unspecified (9) Ventricular bigeminy Current Visit: Yes Status: Chronic (10) Altered mental status Current Visit: Yes Status: Acute Qualifiers: Altered mental status type: unspecified Qualified Description: Altered mental status, unspecified altered mental status type Qualifier Code(s): ( R41.82) Altered mental status, unspecified - Assessment / Plan Additional Assessment/Plan Details: Overall, I think the patient's seizure like activity yesterday could be the explanation for his altered states at times, and he is significantly better off of dementia medications then on them. His SL UMS evaluation was only 1 out of 30 so his dementia appears advanced, but given good behavior over the last 24- 36 hours, and the possibility that he could be having seizures with his temporal lobe dysfunction, we want her to restart Keppra and 1000 mg once and then 500 mg twice daily, to increase to 750 mg twice daily if seizure-like activity was to persist. In terms of the obstructive uropathy, if placed into [facility] facility, this patient would best be served by visiting the lumber racker for a clearance note, and then developing a plan with the urologist. Given dementia, a suprapubic catheter might also be an option. Stop several medications including, Celexa, Seroquel, Namenda, Aricept, and oxybutynin. In addition Proscar was discontinued by the urologist and I'll stop that now as well. The patient does not have evidence for urinary tract infection as mentioned in history present illness. He does not have any fever, no elevation of white count, no abdominal pain, no flank pain, and thus does not meet criteria for urinary tract infection. Preliminary urinary culture shows that it was reintubated for growth.
[2016-10-29] MEDS ORDERED: LevETIRAcetam Tab 500 MG TABLET PO ONE (14:46)
[2016-10-29] MEDS: LevETIRAcetam Tab 500 MG TABLET PO SCH (20:53)
[2016-10-30] MEDS: Sodium Chloride 0.9% 1,000 ML PRIMARY IV SCH ×2 (00:54→09:26)
[2016-10-30] MEDS: LEVOTHYROXINE 75 MCG TABLET PO SCH (05:40)
[2016-10-30] MEDS: HALOPERIDOL LACTATE 5 MG/1 ML AMPULE IM PRN ×2 (06:35→19:03)
[2016-10-30] MEDS ORDERED: Acetaminophen 1000mg Inj 1,000 MG in Premix 1 BAG IV ONE (09:31)
[2016-10-30] MEDS ORDERED: LevETIRAcetam Tab 500 MG TABLET PO SCH (09:33)
[2016-10-30] MEDS: CHOLECALCIFEROL 1000 IU TABLET PO SCH (09:48)
[2016-10-30] MEDS: ASPIRIN EC 81 MG TABLET PO SCH (09:48)
[2016-10-30] MEDS: CLOPIDOGREL 75 MG TABLET PO SCH (09:49)
[2016-10-30] MEDS: Potassium Chloride Tab 10 MEQ TAB PO SCH (11:10)
[2016-10-30] MEDS: LevETIRAcetam Tab 500 MG TABLET PO SCH ×2 (11:10→21:35)
--- NOTE | 2016-10-30 11:17 | PDOC(PROG) ---
Date and Time of Service: 10/30/2016, 11:15 Interval History: No chest pain, shortness breath, nausea or vomiting. Had an episode where he became very anxious, rocked back and forth, flexed his arms, but did not take any swings at anybody. He was anxious. That episode resolved with time and with environmental change. Did not require any medications for sedation of this event. Spoke extensively with the was quite disturbed by this anxious episode, and I feel overall its best to treat the patient empirically for pain with Tylenol thousand grams twice a day and increase the Keppra to 750 mg by mouth twice a day for now. We will have to see if he can tolerate the Keppra. It is possible that he could be having seizures with this temporal lobe deformity via CT scan and MRI scan. When I spoke with neurology yesterday they suggested going to Keppra. We were also able to arrange cardiology appointment for surgical clearance and urology appointment to get his TURP scheduled so we can get this catheter out which I think is a big source of confusion as well. Objective : Data - Labs CBC and BMP: 10/29/16 06:18 10/29/16 06:18 Labs - Last 24 Hours: Laboratory Results 10/29/16 Range/Units 06:18 Vitamin B12 421 (239-931) pg/mL Serum Folate 6.40 (2.76-20.0) NG/ML Laboratory Results 10/28/16 10/28/16 10/28/16 Range/Units 21:16 21:20 21:37 WBC 7.05 (4.8-10.8) 10^3/uL RBC 4.44 L (4.70-6.10) 10^6/uL Hgb 13.2 L (14.0-18.0) g/dL Hct 38.2 L (42.0-52.0) % MCV 86.0 (80-90) FL MCH 29.7 (27-31) PG MCHC 34.6 (33-37) g/dL RDW Std Deviation 42.7 (39-50) fL RDW Coeff of Dio 14.0 (11.5-14.5) % Plt Count 127 L (140-350) 10*3/uL MPV 9.7 (7.4-12.2) FL Immature Gran % (Auto) 0.1 (0-5) % Neut % (Auto) 79.7 (50-80) % Lymph % (Auto) 9.6 L (10-50) % [place] % (Auto) 8.2 (5-15) % Eos % (Auto) 1.8 (0-8) % Baso % (Auto) 0.6 (0-1) % Immature Gran # (Auto) 0.01 10*3/UL Neut # (Auto) 5.61 10*3/UL Lymph # (Auto) 0.68 10*3/uL [place] # (Auto) 0.58 (0.3-0.8) 10*3/UL Eos # (Auto) 0.13 10*3/UL Baso # (Auto) 0.04 10*3/UL WBC Morphology Comment Normal morphology (NORM) Plt Morphology Comment Normal morphology (NORM) RBC Morph Comment Normal morphology (NORM) VBG pH 7.42 (7.32-7.42) VBG pCO2 31 L (45-55) mmHg VBG HCO3 20 L (22-26) mmol/L VBG Base Excess -5 L (-2-2) MMOL/L Sodium 133 L (135-145) meq/L Potassium 4.3 (3.8-5.2) meq/L Chloride 97 L (98-112) meq/L Carbon Dioxide 21 L (23-33) meq/L Anion Gap 15 (5-20) BUN 10 (7-22) mg/dL Creatinine 1.1 (0.70-1.50) mg/dL Estimated GFR (>60 ml/min/1.73m(2)) BUN/Creatinine Ratio 9.09 (6-20) Glucose 106 (78-110) mg/dL Calculated Osmolality 274.0 (267-292) mOsm/kg Lactic Acid 5.8 H (0.70-2.10) MMOL/L Calcium 9.3 (8.7-10.7) mg/dL Magnesium 2.2 (1.6-2.4) mg/dL Total Bilirubin 0.7 (0.3-1.2) mg/dL AST 24 (21-57) IU/L ALT 32 (21-72) IU/L Alkaline Phosphatase 138 H (38-126) IU/L Total Creatine Kinase 154 (55-170) IU/L Troponin I < 0.012 (< 0.040) ng/mL C-Reactive Protein 1.2 H (0.0-0.9) mg/dL Total Protein 6.7 (6.1-8.0) g/dL Albumin 4.1 (3.5-4.8) g/dL Globulin 2.6 (2.50-4.10) g/dL Albumin/Globulin Ratio 1.50 (1.3-2.0) mg/g Vitamin B12 (239-931) pg/mL Serum Folate (2.76-20.0) NG/ML Ur Collection Type Cath specimen Urine Color Red Urine Clarity Turbid (CLEAR) Urine pH 7.0 (5.0-8.5) Ur Specific [place] 1.020 (1.005-1.030) Urine Protein >300 (NEG) mg/dl Urine Glucose (UA) Negative (NEG) mg/dL Urine Ketones Negative (NEG) Urine Occult Blood Large H (NEG) Urine Nitrate Negative (NEG) Urine Bilirubin Small (NEG) Urine Urobilinogen 0.2 (0.2) EU/dL Ur Leukocyte Esterase Moderate (NEG) Urine RBC >100 (NONE) /hpf Urine WBC 20-50 (NONE) Ur Squamous Epith Cells None (NONE) Ur Renal Epithelial Cell None (NONE) Urine Crystals None Urine Bacteria Few (NONE) Urine Casts None (NONE) Urine Mucus Moderate (NONE) Urine Trichomonas None (NONE) Urine Yeast None (NONE) Ur Culture Indicated? Culture set 10/29/16 Range/Units 06:18 WBC 4.80 (4.8-10.8) 10^3/uL RBC 4.05 L (4.70-6.10) 10^6/uL Hgb 12.0 L (14.0-18.0) g/dL Hct 35.1 L (42.0-52.0) % MCV 86.7 (80-90) FL MCH 29.6 (27-31) PG MCHC 34.2 (33-37) g/dL RDW Std Deviation 42.5 (39-50) fL RDW Coeff of Dio 13.9 (11.5-14.5) % Plt Count 114 L (140-350) 10*3/uL MPV 9.9 (7.4-12.2) FL Immature Gran % (Auto) 0.2 (0-5) % Neut % (Auto) 74.5 (50-80) % Lymph % (Auto) 13.3 (10-50) % [place] % (Auto) 9.0 (5-15) % Eos % (Auto) 1.7 (0-8) % Baso % (Auto) 1.3 H (0-1) % Immature Gran # (Auto) 0.01 10*3/UL Neut # (Auto) 3.58 10*3/UL Lymph # (Auto) 0.64 10*3/uL [place] # (Auto) 0.43 (0.3-0.8) 10*3/UL Eos # (Auto) 0.08 10*3/UL Baso # (Auto) 0.06 10*3/UL WBC Morphology Comment Normal morphology (NORM) Plt Morphology Comment Normal morphology (NORM) RBC Morph Comment Normal morphology (NORM) VBG pH (7.32-7.42) VBG pCO2 (45-55) mmHg VBG HCO3 (22-26) mmol/L VBG Base Excess (-2-2) MMOL/L Sodium 134 L (135-145) meq/L Potassium 4.5 (3.8-5.2) meq/L Chloride 106 (98-112) meq/L Carbon Dioxide 22 L (23-33) meq/L Anion Gap 6 (5-20) BUN 7 (7-22) mg/dL Creatinine 0.7 (0.70-1.50) mg/dL Estimated GFR (>60 ml/min/1.73m(2)) BUN/Creatinine Ratio 10.00 (6-20) Glucose 87 (78-110) mg/dL Calculated Osmolality 274.0 (267-292) mOsm/kg Lactic Acid (0.70-2.10) MMOL/L Calcium 8.6 L (8.7-10.7) mg/dL Magnesium (1.6-2.4) mg/dL Total Bilirubin (0.3-1.2) mg/dL AST (21-57) IU/L ALT (21-72) IU/L Alkaline Phosphatase (38-126) IU/L Total Creatine Kinase (55-170) IU/L Troponin I (< 0.040) ng/mL C-Reactive Protein (0.0-0.9) mg/dL Total Protein (6.1-8.0) g/dL Albumin (3.5-4.8) g/dL Globulin (2.50-4.10) g/dL Albumin/Globulin Ratio (1.3-2.0) mg/g Vitamin B12 421 (239-931) pg/mL Serum Folate 6.40 (2.76-20.0) NG/ML Ur Collection Type Urine Color Urine Clarity (CLEAR) Urine pH (5.0-8.5) Ur Specific [place] (1.005-1.030) Urine Protein (NEG) mg/dl Urine Glucose (UA) (NEG) mg/dL Urine Ketones (NEG) Urine Occult Blood (NEG) Urine Nitrate (NEG) Urine Bilirubin (NEG) Urine Urobilinogen (0.2) EU/dL Ur Leukocyte Esterase (NEG) Urine RBC (NONE) /hpf Urine WBC (NONE) Ur Squamous Epith Cells (NONE) Ur Renal Epithelial Cell (NONE) Urine Crystals Urine Bacteria (NONE) Urine Casts (NONE) Urine Mucus (NONE) Urine Trichomonas (NONE) Urine Yeast (NONE) Ur Culture Indicated? Objective : Exam - General General Appearance: No Acute Distress, Cooperative Additional General Exam Details: Vital Signs - Last Taken Temperature 97.4 F 10/30/16 07:08 Pulse Rate 64 10/30/16 07:08 Respiratory Rate 16 10/30/16 07:08 Blood Pressure 136/53 10/30/16 07:08 Pulse Ox 100 10/30/16 07:08 He was very cooperative for me on examination. - Eye Eye Exam: No Scleral Icterus - Respiratory Respiratory Exam: Clear to Auscultation - Bilaterally, Breathing Non Labored - Cardiovascular Cardiovascular Exam: No Murmur, No Clicks, No Gallops, No Rubs, Irregular Rhythm (Patient has bigeminy.), No JVD - GI/Abdominal GI/Abdominal Exam: Normal Bowel Sounds, Non Tender, Non Distended, Soft - Extremities Extremities Exam: No Clubbing Present, No Edema Present, No Cyanosis Present - Neurological Neurological Exam: Alert, No Facial Droop, Speech Intact / Clear, Moves All Extremities Equally - Psychiatric Psychiatric Exam: Anxious, Agitated Assessment and Plan - Patient Problems (1) Seizure-like activity Current Visit: Yes Status: Acute (2) Urinary retention due to benign prostatic hyperplasia Current Visit: Yes Status: Chronic (3) Indwelling catheter present on admission Current Visit: Yes Status: Acute (4) BPH (benign prostatic hyperplasia) Current Visit: Yes Status: Acute Qualifiers: Prostatic enlargement morphology: unspecified morphology Lower urinary tract symptom presence: symptoms present Qualified Description: Benign prostatic hyperplasia with lower urinary tract symptoms, unspecified morphology Qualifier Code(s): (N40.1) Benign prostatic hyperplasia with lower urinary tract symptoms (5) Coronary artery disease Current Visit: Yes Status: Chronic Qualifiers: Coronary Disease-Associated Artery/Lesion type: bypass graft [place] vs. transplanted heart: [place] heart Associated angina: without angina Qualified Description: Coronary artery disease involving coronary bypass graft of [place] heart without angina pectoris Qualifier Code(s): (I25.810) Atherosclerosis of coronary artery bypass graft(s) without angina pectoris (6) Dementia Current Visit: Yes Status: Acute Qualifiers: Dementia type: Alzheimer's disease Alzheimer's disease onset: late- onset Dementia behavioral disturbance: with behavioral disturbance Qualified Description: Late onset Alzheimer's disease with behavioral disturbance Qualifier Code(s): (G30.1) Alzheimer's disease with late onset , (F02.81) Dementia in other diseases classified elsewhere with behavioral disturbance (7) Hyponatremia syndrome Current Visit: Yes Status: Chronic (8) Hypothyroidism Current Visit: Yes Status: Chronic Qualifiers: Hypothyroidism type: acquired Qualified Description: Acquired hypothyroidism Qualifier Code(s): (E03.9) Hypothyroidism, unspecified (9) Ventricular bigeminy Current Visit: Yes Status: Chronic (10) Altered mental status Current Visit: Yes Status: Acute Qualifiers: Altered mental status type: unspecified Qualified Description: Altered mental status, unspecified altered mental status type Qualifier Code(s): ( R41.82) Altered mental status, unspecified - Assessment / Plan Additional Assessment/Plan Details: At this point, make sure the patient has PT and OT ordered, I think he needs a swing bed until we can place him in a usp facility. It is clear at this point that the patient's cannot care for his advanced dementia at home. We have arranged cardiology appointment on 11/09/[address] Martinez at 3 PM in the [facility]. This is for surgical clearance. We have arranged a follow-up with urology, Dr. Jorge, for 2016 at 1 PM to plan for TURP procedure. The patient will have to be off his aspirin and Plavix for this and there is a 1% chance of in-stent restenosis, but the benefits of getting rid of this catheter in the setting of advanced dementia far outweigh the risks. The patient and his are both willing to accept those risks. The patient's quality of life has been significantly deteriorated by the chronic indwelling Mott catheter. Continue to stay off medications other than Keppra for potential seizures and monitor response to this therapy, and Tylenol twice daily for pain empirically. I don't think the patient was any better on other hospital stays with multiple psychotropic medications including SSRI, Aricept and Namenda, and Seroquel. Try to avoid those for now. Patient's is quite skeptical of the medical management of this dementia, but otherwise is in agreement with the plan.
[2016-10-30] MEDS ORDERED: DIAZEPAM 10 MG RECTAL ONE ×4 (19:24→19:46)
[2016-10-30] MEDS ORDERED: levETIRAcetam Inj 500 MG/5 ML VIAL IV ONE (19:54)
[2016-10-30] MEDS: LORazepam 2 MG/1 ML VIAL IVP PRN (19:55)
[2016-10-30] MEDS ORDERED: Sodium Chloride 0.9% 100 ML IV ONE (19:57)
[2016-10-30] MEDS ORDERED: LORazepam 2 MG/1 ML VIAL IM ONE (19:59)
--- NOTE | 2016-10-30 20:08 | PDOC(PROG) ---
General Note Progress Note: The patient had another episode in which he rocked in the chair at around 5:00. Sometime thereafter, within the last hour, the patient went into arching motions with his back and tonic tightening of his upper extremities and lower extremities. He tried to bite down on his teeth and likely missed his tongue. Incontinence cannot be determined as he has a Mott catheter in. He did not have rectal incontinence. When I examined the patient, this looked consistent with tonic-clonic seizures. He had frothing at the mouth, had a talent placed to protect his teeth and airway protection was being administered. We have lost IV access so we had to give to doses of rectal diazepam, 10 mg each. We were finally able to establish an IV and the patient was given 2 mg of IV Ativan. He also got 2 mg of Ativan IM. His muscles are now starting to relax and he is no longer clenching on his teeth. We are loading with another thousand milligrams of Keppra. I spoke to the patient's , and I feel that is involved here. 1 he has temporal lobe abnormalities. 2. He had chronic benzodiazepine diet so pains, recently started Seroquel, and psychotropic medications and dementia medications. All of which can have effects on seizures. 3. I suggested that we continue Keppra at 1000 mg twice a day, and when necessary Ativan for seizure activity, as well as Ativan scheduled twice a day to try and prevent further seizures. I think we should avoid any other psychotropic medications if we can to not lower the seizure threshold and I discontinued Haldol. 4. The patient had normal respirations to this event. I did not witness any aspiration. He is now relaxed, muscles are relaxed now. It appears that he is not in status epilepticus. Assessment/plan: 1. Seizure disorder 2. Dementia with behavioral disturbances/agitation 3. Coronary artery disease 4. 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 Plan as above and as per progress note earlier today. Patient Problems - Patient Problem List (1) Seizure-like activity Current Visit: Yes Status: Acute (2) Urinary retention due to benign prostatic hyperplasia Current Visit: Yes Status: Chronic (3) Indwelling catheter present on admission Current Visit: Yes Status: Acute (4) BPH (benign prostatic hyperplasia) Current Visit: Yes Status: Acute Qualifiers: Prostatic enlargement morphology: unspecified morphology Lower urinary tract symptom presence: symptoms present Qualified Description: Benign prostatic hyperplasia with lower urinary tract symptoms, unspecified morphology Qualifier Code(s): (N40.1) Benign prostatic hyperplasia with lower urinary tract symptoms (5) Coronary artery disease Current Visit: Yes Status: Chronic Qualifiers: Coronary Disease-Associated Artery/Lesion type: bypass graft [place] vs. transplanted heart: [place] heart Associated angina: without angina Qualified Description: Coronary artery disease involving coronary bypass graft of [place] heart without angina pectoris Qualifier Code(s): (I25.810) Atherosclerosis of coronary artery bypass graft(s) without angina pectoris (6) Dementia Current Visit: Yes Status: Acute Qualifiers: Dementia type: Alzheimer's disease Alzheimer's disease onset: late- onset Dementia behavioral disturbance: with behavioral disturbance Qualified Description: Late onset Alzheimer's disease with behavioral disturbance Qualifier Code(s): (G30.1) Alzheimer's disease with late onset , (F02.81) Dementia in other diseases classified elsewhere with behavioral disturbance (7) Hyponatremia syndrome Current Visit: Yes Status: Chronic (8) Hypothyroidism Current Visit: Yes Status: Chronic Qualifiers: Hypothyroidism type: acquired Qualified Description: Acquired hypothyroidism Qualifier Code(s): (E03.9) Hypothyroidism, unspecified (9) Ventricular bigeminy Current Visit: Yes Status: Chronic (10) Altered mental status Current Visit: Yes Status: Acute Qualifiers: Altered mental status type: unspecified Qualified Description: Altered mental status, unspecified altered mental status type Qualifier Code(s): ( R41.82) Altered mental status, unspecified
[2016-10-30] MEDS: ACETAMINOPHEN 500 MG TABLET PO SCH (21:34)
[2016-10-30] MEDS: LORazepam 1 MG TABLET PO SCH (21:35)
[2016-10-31] MEDS: LORazepam 2 MG/1 ML VIAL IVP PRN ×4 (04:45→19:03)
[2016-10-31] MEDS: LEVOTHYROXINE 75 MCG TABLET PO SCH (05:38)
--- NOTE | 2016-10-31 08:10 | PDOC(PROG) ---
Date and Time of Service: 10/31/2016 8:10 AM Interval History: Subjective Events overnight noted, per my discussion with Dr. Baltazar and reviewing the notes it appears the patient had the seizure last night, he was given Keppra, diazepam and Ativan. Earlier during the day he was given Haldol and that was discontinued. The said that she brought him to the hospital this time because he was pacing, she was afraid that his urine was infected they brought him to the ER. The patient is sleeping but arousable. He is denying symptoms, doesn't remember what happened last night. Objective : Data - Labs CBC and BMP: 10/29/16 06:18 10/29/16 06:18 Objective : Exam - General General Appearance: No Acute Distress, Cooperative - Head Head Exam: Normal Inspection, Atraumatic - Eye Eye Exam: Normal Appearance - ENT ENT Exam: Normal Exam - Neck Neck Exam: Normal Inspection - Respiratory Respiratory Exam: Clear to Auscultation - Bilaterally - Cardiovascular Cardiovascular Exam: RRR - GI/Abdominal GI/Abdominal Exam: Normal Bowel Sounds, Non Tender, Non Distended, Soft - External Exam: Deferred - Extremities Extremities Exam: Normal Inspection - Back Back Exam: Normal Inspection - Neurological Additional Neurological Exam Details: Sleepy but arousable. Moving all extremities equally. Cooperative. - Psychiatric Psychiatric Exam: Flat Affect - Integumentary Integumentary Exam: Normal Color Assessment and Plan - Patient Problems (1) Seizure-like activity Current Visit: Yes Status: Acute Comment: He was the started on Keppra continue the current dosage, also he was put on Ativan. He was previously on Xanax 4 times a day and now he is on Ativan which we will use as when necessary but I think will puts him back on his Xanax as his seizure may be secondary to benzodiazepine withdrawal. In terms of disposition I talked to the and she agrees it's difficult for her to take care of him at home so she is open now to looking to go elsewhere instead of waiting for [facility] have a bed so we'll talk to the event planner Wednesday and see if we can find him another place. (2) Coronary artery disease Current Visit: Yes Status: Chronic Comment: Same medications Qualifiers: Coronary Disease-Associated Artery/Lesion type: bypass graft [place] vs. transplanted heart: [place] heart Associated angina: without angina Qualified Description: Coronary artery disease involving coronary bypass graft of [place] heart without angina pectoris Qualifier Code(s): (I25.810) Atherosclerosis of coronary artery bypass graft(s) without angina pectoris (3) Hypothyroidism Current Visit: Yes Status: Chronic Comment: Same medications Qualifiers: Hypothyroidism type: acquired Qualified Description: Acquired hypothyroidism Qualifier Code(s): (E03.9) Hypothyroidism, unspecified (4) Dementia Current Visit: Yes Status: Acute Comment: Few changes were made to his medications, last time he was here we thought that he has dementia with behavioral changes so he was put on Seroquel however vthis was discontinued this time we may have to put him back on Seroquel , I thought that was helping his symptoms then especially the agitation. Qualifiers: Dementia type: Alzheimer's disease Alzheimer's disease onset: late- onset Dementia behavioral disturbance: with behavioral disturbance Qualified Description: Late onset Alzheimer's disease with behavioral disturbance Qualifier Code(s): (G30.1) Alzheimer's disease with late onset , (F02.81) Dementia in other diseases classified elsewhere with behavioral disturbance
[2016-10-31] MEDS: LevETIRAcetam Tab 500 MG TABLET PO SCH ×2 (08:42→20:40)
[2016-10-31] MEDS: ASPIRIN EC 81 MG TABLET PO SCH (08:42)
[2016-10-31] MEDS: CHOLECALCIFEROL 1000 IU TABLET PO SCH (08:42)
[2016-10-31] MEDS: ACETAMINOPHEN 500 MG TABLET PO SCH ×2 (08:42→20:41)
[2016-10-31] MEDS: CLOPIDOGREL 75 MG TABLET PO SCH (08:42)
[2016-10-31] MEDS: LORazepam 1 MG TABLET PO SCH (08:42)
[2016-10-31] MEDS: NORMAL SALINE 10 ML SYRINGE FLUSH IVP PRN (10:17)
[2016-10-31] MEDS: QUEtiapine Tab 25 MG TAB PO SCH ×2 (10:35→20:41)
[2016-10-31] MEDS ORDERED: LORazepam 2 MG/1 ML VIAL IVP ONE (10:42)
[2016-10-31] MEDS: ALPRAZolam Tab 0.25 MG TABLET PO SCH ×4 (13:46→20:41)
[2016-11-01] MEDS: LORazepam 2 MG/1 ML VIAL IVP PRN ×4 (03:01→19:41)
[2016-11-01] MEDS: LEVOTHYROXINE 75 MCG TABLET PO SCH (07:27)
--- NOTE | 2016-11-01 07:48 | PDOC(PROG) ---
Date and Time of Service: 11/01/2016 7:45 AM Interval History: Subjective Yesterday he became agitated and the we had to give him Ativan IV to calm him down, I decided to put him back on his Seroquel as I thought that helped control the behavioral changes that he had with his dementia when he was here last time, we put him also back on his Xanax continued with the Keppra. Overnight he was given also 2 doses of Ativan. Today he is awake he has hoarse voice, he is denying symptoms. Does not recall the events of yesterday. Objective : Data - Labs CBC and BMP: 11/01/16 08:40 11/01/16 09:00 Objective : Exam - General General Appearance: No Acute Distress, Cooperative, Thin - Head Head Exam: Normal Inspection, Atraumatic - Eye Eye Exam: Normal Appearance - Neck Neck Exam: Normal Inspection - Respiratory Respiratory Exam: Clear to Auscultation - Bilaterally - Cardiovascular Cardiovascular Exam: RRR - GI/Abdominal GI/Abdominal Exam: Normal Bowel Sounds, Non Tender, Non Distended, Soft - Rectal Rectal Exam: Deferred - Extremities Extremities Exam: Normal Inspection - Back Back Exam: Normal Inspection - Neurological Neurological Exam: Alert, CN II-XII Intact, No Facial Droop, Moves All Extremities Equally Additional Neurological Exam Details: Speech is hoarse - Psychiatric Psychiatric Exam: Normal Affect - Integumentary Integumentary Exam: Normal Color Assessment and Plan - Patient Problems (1) Seizure-like activity Current Visit: Yes Status: Acute Comment: This is resolved he is on Keppra continue. (2) Coronary artery disease Current Visit: Yes Status: Chronic Comment: Same medications Qualifiers: Coronary Disease-Associated Artery/Lesion type: bypass graft [place] vs. transplanted heart: [place] heart Associated angina: without angina Qualified Description: Coronary artery disease involving coronary bypass graft of [place] heart without angina pectoris Qualifier Code(s): (I25.810) Atherosclerosis of coronary artery bypass graft(s) without angina pectoris (3) Hypothyroidism Current Visit: Yes Status: Chronic Comment: Same med Qualifiers: Hypothyroidism type: acquired Qualified Description: Acquired hypothyroidism Qualifier Code(s): (E03.9) Hypothyroidism, unspecified (4) Dementia Current Visit: Yes Status: Acute Comment: We put him back on Seroquel to control his behavioral changes. Qualifiers: Dementia type: Alzheimer's disease Alzheimer's disease onset: late- onset Dementia behavioral disturbance: with behavioral disturbance Qualified Description: Late onset Alzheimer's disease with behavioral disturbance Qualifier Code(s): (G30.1) Alzheimer's disease with late onset , (F02.81) Dementia in other diseases classified elsewhere with behavioral disturbance (5) Anxiety Current Visit: No Status: Acute Comment: History of anxiety we put him back on his Xanax.
--- NOTE | 2016-11-01 08:32 | PT.PROG ---
Progress Note Progress Note: S: According to nursing staff, Trell had a difficult night. Upon PT arrival to room, Trell was sitting up in chair - agreed to go for a walk and demo impulsive behaviors as attempting to stand up on his own. O: Able to get gait belt around patient prior to him getting up but patient continually attempted to remove gait belt. Poor ability to follow commands for standing and sitting - very impulsive behavior. Pt required Mod assist with maintaining standing balance. Pt was brought outside and instructed in ambulation x 100 feet with FWW - required mod-max assist due to impulsivity and tendencies to start veering to the left. Pt's gait very unsafe and no further walking was performed due to patient's impulse behaviors. Pt was brought back up to room and during transfer to chair, pt tried to sit before getting to chair and required max A x 2 to make sure that patient ended up in the chair. Chair alarm was set and nursing staff present when PT left. A: Pt was demo impulsive behaviors which made patient unsafe for participating in PT activities today. Unable to follow one step instructions and required mod- max assist at times to prevent any falls. P: Continue per POC. If similar behaviors continue, patient will not be appropriate for therapy.
[2016-11-01 08:49] LABS: BASOPHILS # (AUTO) 0.04 10*3/UL; BASOPHILS % (AUTO) 0.8 % (0-1); EOSINOPHILS # (AUTO) 0.19 10*3/UL; EOSINOPHILS % (AUTO) 3.8 % (0-8); HEMATOCRIT 37.5 % (42.0-52.0); HEMOGLOBIN 12.8 g/dL (14.0-18.0); LYMPHOCYTES # (AUTO) 0.54 10*3/uL; MEAN CORPUSCULAR HEMOGLOBIN 29.5 PG (27-31); MEAN CORPUSCULAR HGB CONC 34.1 g/dL (33-37); MEAN CORPUSCULAR VOLUME 86.4 FL (80-90); MEAN PLATELET VOLUME 9.7 FL (7.4-12.2); MONOCYTES # (AUTO) 0.33 10*3/UL (0.3-0.8); MONOCYTES % (AUTO) 6.6 % (5-15); RED BLOOD COUNT 4.34 10^6/uL (4.70-6.10)
[2016-11-01 08:58] LABS: PLATELET MORPHOLOGY COMMENT NORMAL MORPHOLOGY (NORM); RBC MORPHOLOGY COMMENT NORMAL MORPHOLOGY (NORM); WBC MORPHOLOGY COMMENT NORMAL MORPHOLOGY (NORM)
[2016-11-01 09:06] LABS: CALCIUM 8.8 mg/dL (8.7-10.7)
[2016-11-01] MEDS: LevETIRAcetam Tab 500 MG TABLET PO SCH ×2 (09:18→20:27)
[2016-11-01] MEDS: QUEtiapine Tab 25 MG TAB PO SCH ×2 (09:18→20:27)
[2016-11-01] MEDS: CLOPIDOGREL 75 MG TABLET PO SCH (09:18)
[2016-11-01] MEDS: CHOLECALCIFEROL 1000 IU TABLET PO SCH (09:18)
[2016-11-01] MEDS: ALPRAZolam Tab 0.25 MG TABLET PO SCH ×4 (09:19→20:28)
[2016-11-01] MEDS: ASPIRIN EC 81 MG TABLET PO SCH (09:19)
--- NOTE | 2016-11-01 11:00 | PT.PROG ---
Progress Note Progress Note: S: Per nursing report, patient is doing better today and less agitated. Pt was sitting up in chair upon PT arrival. Pt was willing to participate in therapy and his was present during treatment. O: Treatment consisted of functional activity with patient instructed on seated to standing transfer safely, ambulation x 150 feet with min A x 1 for safety and use of FWW, seated rest break as patient was starting to veer to the left with his body, ambulation x 100 feet to mat in therapy room, instruction on 15 x sit to stand transfers with max VC for trying to get patient to sit down safely, ambulation x 100 feet before requiring seated rest break as patient was veering to the left and requiring mod A x 1 in order to not fall down, ambulation x 150 feet with max cuing for turning. Pt required max cuing for sitting in chair in room as he tries to sit down before he is backed all the way up to the chair. Pt was left in chair with chair alarm in place and call light within reach. A: Tolerated ambulation better on this date verse yesterday. Pt requires max VC for safety and speed with ambulation and has tendencies to veer to the left and out of the walker. Required min-mod assistance with ambulation at all times. Difficulties with verbal cues for turning and required max tactile cues in order to complete activity. P: Continue per POC.
[2016-11-02] MEDS: LEVOTHYROXINE 75 MCG TABLET PO SCH (05:48)
[2016-11-02] MEDS: NORMAL SALINE 10 ML SYRINGE FLUSH IVP PRN (06:26)
[2016-11-02] MEDS: LORazepam 2 MG/1 ML VIAL IVP PRN (06:26)
[2016-11-02] MEDS: LevETIRAcetam Tab 500 MG TABLET PO SCH ×2 (08:00→20:46)
[2016-11-02] MEDS: CHOLECALCIFEROL 1000 IU TABLET PO SCH (08:00)
[2016-11-02] MEDS: ASPIRIN EC 81 MG TABLET PO SCH (08:01)
[2016-11-02] MEDS: ALPRAZolam Tab 0.25 MG TABLET PO SCH ×4 (08:01→20:46)
[2016-11-02] MEDS: CLOPIDOGREL 75 MG TABLET PO SCH (08:01)
[2016-11-02] MEDS: QUEtiapine Tab 25 MG TAB PO SCH ×2 (08:01→20:46)
--- NOTE | 2016-11-02 09:48 | PDOC(PROG) ---
Date and Time of Service: 11/02/2016 9:47 AM Interval History: Subjective Patient is sleeping but arousable, he got the Ativan earlier today because of some agitation. Objective : Data - Labs CBC and BMP: 11/01/16 08:40 11/01/16 09:00 Objective : Exam - General General Appearance: No Acute Distress, Cooperative - Head Head Exam: Normal Inspection, Atraumatic - Eye Eye Exam: Normal Appearance - ENT ENT Exam: Normal Exam - Neck Neck Exam: Normal Inspection - Respiratory Respiratory Exam: Clear to Auscultation - Bilaterally - Cardiovascular Cardiovascular Exam: RRR - GI/Abdominal GI/Abdominal Exam: Normal Bowel Sounds, Non Tender, Non Distended, Soft - Rectal Rectal Exam: Deferred - External Exam: Deferred - Extremities Extremities Exam: Normal Inspection - Back Back Exam: Normal Inspection - Neurological Additional Neurological Exam Details: Sleepy but arousable Assessment and Plan - Patient Problems (1) Seizure-like activity Current Visit: Yes Status: Acute Comment: No more seizure, Continue Keppra. (2) Coronary artery disease Current Visit: Yes Status: Chronic Comment: Same med Qualifiers: Coronary Disease-Associated Artery/Lesion type: bypass graft [place] vs. transplanted heart: [place] heart Associated angina: without angina Qualified Description: Coronary artery disease involving coronary bypass graft of [place] heart without angina pectoris Qualifier Code(s): (I25.810) Atherosclerosis of coronary artery bypass graft(s) without angina pectoris (3) Hypothyroidism Current Visit: Yes Status: Chronic Comment: Same medications Qualifiers: Hypothyroidism type: acquired Qualified Description: Acquired hypothyroidism Qualifier Code(s): (E03.9) Hypothyroidism, unspecified (4) Dementia Current Visit: Yes Status: Acute Comment: Still have some agitation at times but less than Wednesday, I think I' ll increase the dosage or of the Seroquel to 75 mg at night as we did last time and continue the 50 mg in the a.m. Qualifiers: Dementia type: Alzheimer's disease Alzheimer's disease onset: late- onset Dementia behavioral disturbance: with behavioral disturbance Qualified Description: Late onset Alzheimer's disease with behavioral disturbance Qualifier Code(s): (G30.1) Alzheimer's disease with late onset , (F02.81) Dementia in other diseases classified elsewhere with behavioral disturbance (5) Anxiety Current Visit: No Status: Acute Comment: Continue Xanax, will see if we can stop the Ativan in a day or so.
--- NOTE | 2016-11-02 10:25 | PTI REPORT ---
Thank you for the referral of Trell Rodriguez. He was seen on 10/30/16 for an inpatient evaluation secondary to weakness. SUBJECTIVE: The patient is an 80-year-old male. The patient's reports that the patient lives at home with his . He has very few stairs and he is able to do them. The patient reports that he is in no pain and has had no recent falls. Nursing okayed treatment prior to therapy. Nursing reported that the patient did have a couple of episodes earlier where he was agitated but not combative. PAST MEDICAL HISTORY: Past medical history can be found in the patient's medical record. OBJECTIVE FINDINGS: General observations: The patient was seen seated in a chair upon the therapist' s arrival; he was almost sliding out of his chair. The patient was very confused and disoriented. Transfers: The patient required mod assist x1 for safety during sit to stand transfer from chair. The patient was very agitated by the gait belt. The patient was unable to respond to verbal cueing for technique for sit to stand transfer such as hand placement. Ambulation: The patient demonstrated very unsteady balance with gait and tends to demonstrate lateral sway with gait and required bilateral hand hold assist for safety to single hand hold assist for safety with gait belt. The patient required constant cues for directions while walking. ASSESSMENT: The patient is an 80-year-old male that presents with generalized weakness, decreased balance, decreased cognition, and decreased functional abilities. The patient would benefit from skilled therapy in order to improve functional mobility and to decrease risk of falls. The patient's prognosis for therapy is poor based on previous attempts at rehab in the past and cognition. Problem List: Decreased strength Decreased endurance Decreased independence Short-Term Goals: To be met by discharge from inpatient: Patient will be contact guard assist x1 for safety with all transfers with least restrictive assistive device. Patient will be able to ambulate 150 feet with contact guard assist to hand hold assist x1 for safety in the home. Patient will be able to return to least restrictive environment. Long-Term Goals: To be met following discharge from inpatient: Patient may benefit from outpatient physical therapy in the future, depending on how compliant patient is during his inpatient stay. Patient will ultimately be able to return to least restrictive environment; however, it is not recommended that the patient return home at this time. TREATMENT PLAN: Patient will be seen B.I.D during the week and one time per day over the weekend as an inpatient for therapeutic exercise, modalities, gait training, and neuromuscular reeducation. INITIAL TREATMENT: Treatment today consisted of the initial evaluation followed by functional activities. The patient required bilateral hand hold assist for ambulation from his room to around the nurse's station which was approximately 150 feet with two standing rest breaks. The patient then ambulated approximately another 300 feet with single to bilateral hand hold assist to mod assist for safety and balance as the patient has a very unsteady gait pattern. The patient 's was present during therapy today. The patient was escorted back to his room and left in his chair with his present and his chair alarm activated and call light within reach. EMMA
--- NOTE | 2016-11-02 11:14 | OTI REPORT ---
Thank you for the referral of Trell Rodriguez. He was seen on 10/30/16 for an occupational therapy inpatient evaluation secondary to weakness. SUBJECTIVE: The patient is an 80-year-old male. He was discharged from this hospital approximately one week ago. The patient does have dementia. The patient's would like to get the patient into an Alzheimer's unit here in [place]; although they don't have any beds open. They are requesting therapy to keep him here for a few days to hopefully increase his safety and activity tolerance until they can find a bed for the patient. PAST MEDICAL HISTORY: Past medical history can be found in the patient's medical record. OBJECTIVE FINDINGS: General observations: The patient is very impulsive with his activities. Ambulation: The patient is able to walk with stand by assist only. Previously we had completed a shower with the patient. He was able to complete the task but required max assist verbal cueing as well as safety cueing due to his impulsivity. Activities of daily living: The patient is able to complete his activities of daily living although he does require max cueing. Range of motion: The patient does have good shoulder range of motion. Strength: The patient demonstrated shoulder strength of 4+/5 bilaterally. ASSESSMENT: Problem List: Increased Confusion Increased impulsivity Decreased ability to complete activities of daily living Occupational Therapy Goals: To be met by discharge from inpatient: Patient will be able to complete functional activities x20 minutes with stand by assist only. Patient will demonstrate the ability to recognize two out of five good safety cues within ADL settings. TREATMENT PLAN: Patient will be seen one to two times per day depending on his tolerance of therapy during the week and one time per day over the weekend as an inpatient to address the above goals and objectives. INITIAL TREATMENT: Treatment today consisted of the initial evaluation activities only. EMMA
--- NOTE | 2016-11-02 11:36 | PT.PROG ---
Progress Note Progress Note: S. Patient agreed to go for a walk. however didn't want to go far. O. Patient ambulated 150 feet around the nurses station then performed standing exercises in the form of; heel toe raises, marches x 10. Patient was left in chair with alarms and call light. A. Patient was very impulsive during his ambulation, he was also struggling to stay awake and required max verbal cues to stay on task and not run into campo. He was unable to perform more exercises due to alertness. Patient continues to struggle with balance and weakness and would continue to benefit from skilled therapy at this time. P. Continue POC.
--- NOTE | 2016-11-02 17:04 | PT.PROG ---
Progress Note Progress Note: Patient was unable to participate in Physical therapy due to altered mental state.
[2016-11-02] MEDS: MAGNESIUM 400 MG/5 ML - 30 ML (MILK OF MAGNESIA) PO PRN (19:11)
[2016-11-03] MEDS: LEVOTHYROXINE 75 MCG TABLET PO SCH (05:52)
--- NOTE | 2016-11-03 07:44 | PDOC(PROG) ---
Date and Time of Service: 11/03/2016 7:41 AM Interval History: Subjective Patient was sitting in the chair and appears comfortable, denying complaint. He is asking for something for his bowels. Objective : Data - Labs CBC and BMP: 11/01/16 08:40 11/01/16 09:00 Objective : Exam - General General Appearance: No Acute Distress, Cooperative - Head Head Exam: Normal Inspection, Atraumatic - Eye Eye Exam: Normal Appearance - ENT ENT Exam: Normal Exam - Neck Neck Exam: Normal Inspection - Respiratory Respiratory Exam: Clear to Auscultation - Bilaterally - Cardiovascular Cardiovascular Exam: RRR - GI/Abdominal GI/Abdominal Exam: Normal Bowel Sounds, Non Tender, Non Distended, Soft - Rectal Rectal Exam: Deferred - External Exam: Deferred - Extremities Extremities Exam: Normal Inspection - Back Back Exam: Normal Inspection - Neurological Neurological Exam: Alert, CN II-XII Intact, Moves All Extremities Equally - Psychiatric Psychiatric Exam: Flat Affect - Integumentary Integumentary Exam: Normal Color Assessment and Plan - Patient Problems (1) Seizure-like activity Current Visit: Yes Status: Acute Comment: Continue the Keppra at the current dosage (2) Coronary artery disease Current Visit: Yes Status: Chronic Comment: Same medications Qualifiers: Coronary Disease-Associated Artery/Lesion type: bypass graft [place] vs. transplanted heart: [place] heart Associated angina: without angina Qualified Description: Coronary artery disease involving coronary bypass graft of [place] heart without angina pectoris Qualifier Code(s): (I25.810) Atherosclerosis of coronary artery bypass graft(s) without angina pectoris (3) Hypothyroidism Current Visit: Yes Status: Chronic Comment: Same med Qualifiers: Hypothyroidism type: acquired Qualified Description: Acquired hypothyroidism Qualifier Code(s): (E03.9) Hypothyroidism, unspecified (4) Dementia Current Visit: Yes Status: Acute Comment: Seroquel seems to control his behavior, continue the current dosage. We are waiting for placement at a alf in [place]. Qualifiers: Dementia type: Alzheimer's disease Alzheimer's disease onset: late- onset Dementia behavioral disturbance: with behavioral disturbance Qualified Description: Late onset Alzheimer's disease with behavioral disturbance Qualifier Code(s): (G30.1) Alzheimer's disease with late onset , (F02.81) Dementia in other diseases classified elsewhere with behavioral disturbance (5) Anxiety Current Visit: No Status: Acute Comment: Continue the Xanax
[2016-11-03] MEDS: MAGNESIUM 400 MG/5 ML - 30 ML (MILK OF MAGNESIA) PO PRN (08:01)
[2016-11-03] MEDS: ALPRAZolam Tab 0.25 MG TABLET PO SCH ×4 (08:01→20:35)
[2016-11-03] MEDS: QUEtiapine Tab 25 MG TAB PO SCH ×2 (08:01→20:35)
[2016-11-03] MEDS: CHOLECALCIFEROL 1000 IU TABLET PO SCH (08:01)
[2016-11-03] MEDS: LevETIRAcetam Tab 500 MG TABLET PO SCH ×2 (08:02→20:34)
[2016-11-03] MEDS: ASPIRIN EC 81 MG TABLET PO SCH (08:02)
[2016-11-03] MEDS: CLOPIDOGREL 75 MG TABLET PO SCH (08:02)
--- NOTE | 2016-11-03 17:09 | PT.PROG ---
Progress Note Progress Note: S. Patient agreed to go to the therapy gym this morning. O. Patient ambulated 175 feet to the therapy gym where he used the bicycle x 5 minutes and the arm bike x 5 minutes. Patient ambulated 175 feet back to the nurses station where he was left with the nurses due to construction in his room. A. Patient did not want to perform more activities this morning, he was able to ambulate and perform transfers with min assist. He continues to struggle with balance and impulsiveness. Patient would continue to benefit from skilled care. P. Continue POC.
[2016-11-04] MEDS: LEVOTHYROXINE 75 MCG TABLET PO SCH (07:15)
[2016-11-04] MEDS: CHOLECALCIFEROL 1000 IU TABLET PO SCH (08:24)
[2016-11-04] MEDS: ASPIRIN EC 81 MG TABLET PO SCH (08:24)
[2016-11-04] MEDS: QUEtiapine Tab 25 MG TAB PO SCH ×2 (08:24→21:12)
[2016-11-04] MEDS: ALPRAZolam Tab 0.25 MG TABLET PO SCH ×2 (08:24→12:52)
[2016-11-04] MEDS: LevETIRAcetam Tab 500 MG TABLET PO SCH ×2 (08:24→21:12)
[2016-11-04] MEDS: CLOPIDOGREL 75 MG TABLET PO SCH (08:24)
--- NOTE | 2016-11-04 09:11 | PDOC(PROG) ---
Date and Time of Service: 11/04/2016 9:09 AM Interval History: Subjective Patient fell in the bathroom this morning, he had some skin tear to 2 fingers of the left hand but otherwise no other injuries. He is denying symptoms. He wants to go home Objective : Data - Labs CBC and BMP: 11/01/16 08:40 11/01/16 09:00 Objective : Exam - General General Appearance: No Acute Distress, Cooperative - Head Head Exam: Normal Inspection, Atraumatic - Eye Eye Exam: Normal Appearance - ENT ENT Exam: Normal Exam - Neck Neck Exam: Normal Inspection - Respiratory Respiratory Exam: Clear to Auscultation - Bilaterally - Cardiovascular Cardiovascular Exam: RRR - GI/Abdominal GI/Abdominal Exam: Normal Bowel Sounds, Non Tender, Non Distended, Soft - Rectal Rectal Exam: Deferred - External Exam: Deferred - Extremities Additional Extremities Exam Details: Band-Aid applied to the third and fourth finger on the dorsal aspect. - Back Back Exam: Normal Inspection - Neurological Neurological Exam: Alert, CN II-XII Intact, No Facial Droop, Moves All Extremities Equally - Psychiatric Psychiatric Exam: Flat Affect - Integumentary Integumentary Exam: Normal Color Assessment and Plan - Patient Problems (1) Seizure-like activity Current Visit: Yes Status: Acute Comment: Continue Keppra (2) Coronary artery disease Current Visit: Yes Status: Chronic Comment: Same medications Qualifiers: Coronary Disease-Associated Artery/Lesion type: bypass graft [place] vs. transplanted heart: [place] heart Associated angina: without angina Qualified Description: Coronary artery disease involving coronary bypass graft of [place] heart without angina pectoris Qualifier Code(s): (I25.810) Atherosclerosis of coronary artery bypass graft(s) without angina pectoris (3) Hypothyroidism Current Visit: Yes Status: Chronic Comment: Same med Qualifiers: Hypothyroidism type: acquired Qualified Description: Acquired hypothyroidism Qualifier Code(s): (E03.9) Hypothyroidism, unspecified (4) Dementia Current Visit: Yes Status: Acute Comment: Seroquel seemed to control the behavioral aspect of his dementia, continue same dosage. We are looking for placement for him. The last time they used IV Ativan was on the Qualifiers: Dementia type: Alzheimer's disease Alzheimer's disease onset: late- onset Dementia behavioral disturbance: with behavioral disturbance Qualified Description: Late onset Alzheimer's disease with behavioral disturbance Qualifier Code(s): (G30.1) Alzheimer's disease with late onset , (F02.81) Dementia in other diseases classified elsewhere with behavioral disturbance (5) Anxiety Current Visit: No Status: Acute Comment: Continue Xanax
--- NOTE | 2016-11-04 14:49 | OT PM DAY ---
Diagnosis : Weakness PM - Occupational Therapy S: The patient reports no new changes. O: The patient ambulated downstairs with wheeled walker and contact guard to min assist. He ran into quite a few different campo when trying to walk downstairs. He needed assistance for all functional transfers today. He performed arm bike x3 minutes forward and 3 minutes backward followed by wall pulleys with two kilograms for shoulder extensions, rows, and biceps curls. He then went to the mat and worked on hand strengthening including power web, digi- flex, and putty exercises for gross grasp. A: The patient did participate. After activities the patient did state he was tired and he ambulated back to his room with min assist secondary to running into elevators and campo with his walker. P: Continue seeing patient BID during the week and one time per day over the weekend for upper extremity strengthening, ADLs, and overall functional mobility. EMMA
--- NOTE | 2016-11-04 16:17 | PT.PROG ---
Progress Note Progress Note: S. Patient agreed to go for a walk however he did not want to do any more. O. Patient ambulated 300 feet around the nurses station. Patient performed sit to stands x5 then was left in chair with alarm and call light. A. Patient continues to be impulsive and require min to CGA during ambulation and transfers, Patient struggles with balance and would continue to benefit from skilled care. P. Continue POC.
--- NOTE | 2016-11-04 17:09 | OT.PROG ---
Progress Note Progress Note: S: Pt. stated that his hand hurt and he couldnt so anymore throughout treatment when participating in hand strengthening activity. O: P.t participated in 20 min OT session in therapy gym to increase strength and activity tolerance needed for safety. Increase activity tolerance on arm bike x 5 min. Pt. squeezed digiflex x 1 min to increase hand strength. Able to remove and add 10 clothes pins I, c/o of hand pain. Pt worked on finger flexion , /, supination and pronation with [employer] power web to increase hand strength. Able to ambulate to and from room with CGA and walker. Needed 1 break x 1 min. A: Pt. decreased activity tolerance inhibits his safety. He was distracted and often gave up. P: Pt. will continue OT services 2x/day until discharge to increase activity tolerance and strength needed for safety.
[2016-11-04] MEDS: ALPRAZolam Tab 1 MG TABLET PO SCH ×2 (17:23→21:11)
[2016-11-04] MEDS: MAGNESIUM 400 MG/5 ML - 30 ML (MILK OF MAGNESIA) PO PRN (17:25)
[2016-11-05] MEDS: LEVOTHYROXINE 75 MCG TABLET PO SCH (05:56)
[2016-11-05] MEDS: CHOLECALCIFEROL 1000 IU TABLET PO SCH (09:15)
[2016-11-05] MEDS: QUEtiapine Tab 25 MG TAB PO SCH ×2 (09:15→21:21)
[2016-11-05] MEDS: LevETIRAcetam Tab 500 MG TABLET PO SCH ×2 (09:16→21:22)
[2016-11-05] MEDS: ASPIRIN EC 81 MG TABLET PO SCH (09:16)
[2016-11-05] MEDS: ALPRAZolam Tab 1 MG TABLET PO SCH ×4 (09:16→21:22)
[2016-11-05] MEDS: CLOPIDOGREL 75 MG TABLET PO SCH (09:16)
--- NOTE | 2016-11-05 10:13 | PT.PROG ---
Progress Note Progress Note: S. Patient stated that he would go to therapy however not for long. O. Patient ambulated 175 feet to the therapy gym where he used the bicycle x 5 minutes then performed sit to stands x 10 long arc quads x 10 and marches x 10. Patient ambulated 175 feet back to his room where he was left in chair with alarm and call light. A. Patient continues to struggle with balance and is very impulsive. Patient required min assist with balance during sit to stand exercises. Patient requires verbal cues to perform exercises properly and not to ambulate too fast. He was unable to perform more exercise due to fatigue and requested to return to his room. Patient would benefit from skilled care. P. continue POC.
--- NOTE | 2016-11-05 13:24 | PDOC(PROG) ---
Interval History: Patient has no complaints sitting in a chair his at the bedside. She does not appear confused this morning and is having a good day according to his and the nurses denies chest pain nausea vomiting his said he is difficulty swallowing Objective : Data - Labs CBC and BMP: 11/01/16 08:40 11/01/16 09:00 Objective : Exam - General General Appearance: Cooperative - Respiratory Respiratory Exam: Clear to Auscultation - Bilaterally, Breathing Non Labored, Normal To Percussion - Cardiovascular Cardiovascular Exam: RRR, No Murmur, No Clicks - Extremities Extremities Exam: Normal Capillary Refill, No Clubbing Present, No Edema Present Assessment and Plan - Patient Problems (1) BPH (benign prostatic hyperplasia) Current Visit: Yes Status: Acute Qualifiers: Prostatic enlargement morphology: unspecified morphology Lower urinary tract symptom presence: symptoms present Qualified Description: Benign prostatic hyperplasia with lower urinary tract symptoms, unspecified morphology Qualifier Code(s): (N40.1) Benign prostatic hyperplasia with lower urinary tract symptoms (2) Dementia Current Visit: Yes Status: Acute Qualifiers: Dementia type: Alzheimer's disease Alzheimer's disease onset: late- onset Dementia behavioral disturbance: with behavioral disturbance Qualified Description: Late onset Alzheimer's disease with behavioral disturbance Qualifier Code(s): (G30.1) Alzheimer's disease with late onset , (F02.81) Dementia in other diseases classified elsewhere with behavioral disturbance (3) Hyponatremia syndrome Current Visit: Yes Status: Chronic - Assessment / Plan Additional Assessment/Plan Details: #1 I believe this patient has a dementia with the behavioral changes unable to be taken care of at home or by his he has had multiple admissions for the same reason social work specialist is working on placement at present time #2 apparently the patient had a tonic-clonic seizure patient is now on Keppra #3. Coronary artery disease #4. 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 I will order a swallow eval
[2016-11-05] MEDS: ACETAMINOPHEN 325 MG TABLET PO PRN (18:51)
--- NOTE | 2016-11-05 21:27 | DI ---
XR SHOULDER 1VW,11/05/2016 6:33 PM: Clinical History: Left shoulder pain Previous Exam: July 27, 2016 contralateral side. Findings: A single view of the left shoulder is obtained, and demonstrates a superior translation of the proxim al humerus on the glenoid with decreased subacromial distance. There is osteophyte formation and scle rosis of the left humeral head as well. The adjacent left lung and chest wall is unremarkable. Impression: Advanced degenerative changes of the left shoulder and decreased subacromial distance consistent with impingement.
[2016-11-06] MEDS: LEVOTHYROXINE 75 MCG TABLET PO SCH ×2 (05:13→05:39)
[2016-11-06] MEDS: QUEtiapine Tab 25 MG TAB PO SCH ×2 (08:52→21:02)
[2016-11-06] MEDS: ALPRAZolam Tab 1 MG TABLET PO SCH ×4 (08:52→21:02)
[2016-11-06] MEDS: CHOLECALCIFEROL 1000 IU TABLET PO SCH (08:53)
[2016-11-06] MEDS: LevETIRAcetam Tab 500 MG TABLET PO SCH ×2 (08:54→21:02)
[2016-11-06] MEDS: CLOPIDOGREL 75 MG TABLET PO SCH (08:55)
[2016-11-06] MEDS: ASPIRIN EC 81 MG TABLET PO SCH (08:55)
--- NOTE | 2016-11-06 10:10 | PDOC(PROG) ---
Interval History: No complaints no clinical changes had a good night Objective : Data - Labs CBC and BMP: 11/01/16 08:40 11/01/16 09:00 Objective : Exam - General General Appearance: Cooperative - Respiratory Respiratory Exam: Clear to Auscultation - Bilaterally, Breathing Non Labored, Normal To Percussion - Cardiovascular Cardiovascular Exam: RRR, No Murmur, No Clicks, No Gallops - GI/Abdominal GI/Abdominal Exam: Normal Bowel Sounds, Non Tender, Non Distended Assessment and Plan - Patient Problems (1) BPH (benign prostatic hyperplasia) Current Visit: Yes Status: Chronic Qualifiers: Prostatic enlargement morphology: unspecified morphology Lower urinary tract symptom presence: symptoms present Qualified Description: Benign prostatic hyperplasia with lower urinary tract symptoms, unspecified morphology Qualifier Code(s): (N40.1) Benign prostatic hyperplasia with lower urinary tract symptoms (2) Dementia Current Visit: Yes Status: Acute Comment: Stable at present time continue current medication Qualifiers: Dementia type: Alzheimer's disease Alzheimer's disease onset: late- onset Dementia behavioral disturbance: with behavioral disturbance Qualified Description: Late onset Alzheimer's disease with behavioral disturbance Qualifier Code(s): (G30.1) Alzheimer's disease with late onset , (F02.81) Dementia in other diseases classified elsewhere with behavioral disturbance (3) Hyponatremia syndrome Current Visit: Yes Status: Chronic Comment: This is chronic (4) Left shoulder pain Current Visit: Yes Status: Acute Comment: X-ray was done which was also done a few months back shows severe degenerative arthritis and possible impingement - Assessment / Plan Additional Assessment/Plan Details: Clinically stable and awaiting placement by social service and is unable to take care of the patient
[2016-11-06] MEDS ORDERED: Sodium Chloride 0.9% 1,000 ML PRIMARY IV ONE (14:09)
[2016-11-06] MEDS ORDERED: NORMAL SALINE 100 ML IV SCH (14:15)
--- NOTE | 2016-11-06 14:33 | OT.PROG ---
Progress Note Progress Note: S: Pt. stated that he hurt his hand and that he couldnt do anymore when participating in hand activities. O: Pt. participated in 20 min OT session to increase strength and activity tolerance needed for safety. Pt squeezed digiflex x 1 mint to increase hand strength. Worked on finger flexion and / with power web x 1 min. Needed verbal cues to do correct extension motion. Yellow theraputty used to help increase finger extension x 10 reps B. Ambulated to and from room with CGA. A: Pt was slightly agitated at end of session. He became impulsive at end of session as well. P: Continue OT services 1x a day till discharge to increase strength and activity tolerance needed for safety.
--- NOTE | 2016-11-06 15:57 | PT.PROG ---
Progress Note Progress Note: Nursing suggested to hold on therapy this afternoon due to him having a temperature and not much urine output.
--- NOTE | 2016-11-06 17:00 | OTI REPORT ---
Thank you for the referral of Trell Rodriguez. He was seen on 11/05/16 for an occupational therapy swallow evaluation. SUBJECTIVE: The patient is an 80-year-old male who is being seen secondary to having an onset of coughing and choking when eating and drinking his meals. His reports that he does cough and choke quite frequently when he is eating. The patient was somewhat aggravated today. He does have dementia and did have difficulty processing some of the information that was given today. His was present and does respond well. PAST MEDICAL HISTORY: Past medical history can be found in the patient's medical record. OBJECTIVE FINDINGS: Pre-Swallow Assessment: Reliable responses: The patient does not have reliable yes and no responses. Facial symmetry: The patient does demonstrate facial symmetry. Volitional dry swallow: The patient does demonstrate a volitional dry swallow. Following directions: The patient is not able to follow two step directions. Neglect: The patient does not demonstrate neglect. Cough: The patient's cough is kind of gurgley. Nutrition and intake method over the last 24 hours: The patient's states the patient is on an acid free diet. She states she usually sticks to pork, chicken, green beans, spinach, mashed potatoes, and smooth ranch dip. Oxygen: The patient is not on oxygen at this time. Secretions: The patient was not able to handle his own secretions for part of his meal today. The patient did demonstrate drooling with lips closed and when he is chewing. Dentition: The patient has his own dentition minus two teeth. Voice quality: His voice quality is somewhat gurgley. Tongue range of motion: The patient has good lateralization to the cheek but is not able to place tongue in the sulci of the mouth upon observation. Sensation: Sensation is difficult to assess as the patient is unable to give accurate Head control: The patient does demonstrate good head control. Gag reflex: The patient has a hypoactive gag reflex. General observations: The patient was sitting in chair when the therapist arrived. He was leaned slightly back in the recliner chair. Feeding Assessment: During the feeding assessment the patient demonstrated an automatic swallow. He demonstrated pretty severe impulsivity and put several bites of food in his mouth before he would even try to chew and swallow. He basically ate the fruit cup in two different swallows and ended up choking shortly thereafter. The patient drank thin liquid right after eating peaches and guzzled the water. He would not slow down, even with cues. He coughed quite severely after this, indicating aspiration. The therapist then completed nectar thickened liquid. Again, even with cues and hand over hand assist, the patient did demonstrate agitation as the patient tried to slow him down. The patient then moved on to pureed foods which he did well with. Because of his impulsivity, the therapist got a safe straw, which limits input with nectar thickened liquids. The patient did better with this. He had decreased difficulties using the straw; however, he said it was kind of hard to suck through. It does limit his intake amount at any given point in time. ASSESSMENT: The patient does have impaired judgment. Swallow should be efficient for adequate PO intake. RECOMMENDATIONS: 1. The patient should have a one-on-one assist with him when eating secondary to his impulsivity and shoveling food into his mouth. 2. The patient should be on nectar thickened liquids with safe straw. 3. The patient should be on mechanical soft diet with verbal cues to slow down during meals. 4. The patient should be in most upright position during meals. 5. The patient should have medications crushed and placed in a puree. 6. The patient should eat with trained staff only with cues to slow down and after meal they should check for pocketing. Dr. Whiteside was informed of the results and recommendations and agrees with them. Nursing was also educated. Occupational therapist did train staff as well as on safe straw. He will use this for daily meals as well as throughout the day with his nectar thickened liquids. SWALLOW GOALS: Patient will eat 100% of selected diet without external signs of aspiration. Patient will use safe straw throughout the day appropriately. Patient will be able to chew and swallow one to two bites at a time. INITIAL TREATMENT: Treatment today consisted of the swallow evaluation activities only. EMMA
[2016-11-06] MEDS: ACETAMINOPHEN 325 MG TABLET PO PRN (23:04)
[2016-11-06] MEDS ORDERED: Sodium Chloride 0.9% 500 ML PRIMARY IV ONE (23:23)
[2016-11-06 23:55] LABS: HEMATOCRIT 38.5 % (42.0-52.0); HEMOGLOBIN 13.2 g/dL (14.0-18.0); MEAN CORPUSCULAR HEMOGLOBIN 29.5 PG (27-31); MEAN CORPUSCULAR HGB CONC 34.3 g/dL (33-37); MEAN CORPUSCULAR VOLUME 85.9 FL (80-90); MEAN PLATELET VOLUME 9.6 FL (7.4-12.2); RED BLOOD COUNT 4.48 10^6/uL (4.70-6.10)
[2016-11-07 00:05] LABS: BUN/CREATININE RATIO 15.71 (6-20); CALCIUM 8.4 mg/dL (8.7-10.7); SERUM ALBUMIN 3.3 g/dL (3.5-4.8)
[2016-11-07] MEDS: Sodium Chloride 0.9% 1,000 ML PRIMARY IV SCH ×3 (00:34→23:13)
[2016-11-07] MEDS: Clindamycin 900mg (Premix) 900 MG in Dextrose 1 BAG IV SCH ×4 (00:34→23:08)
--- NOTE | 2016-11-07 00:52 | DI ---
HISTORY: Hypoxia, coughing up blood. TECHNIQUE: A single frontal view of the chest is submitted. FINDINGS: There is right greater than left lung base consolidation. Blunting of the costophrenic an gles could represent atelectasis or scar versus small pleural effusions. There is no pneumothorax. The patient is status post median sternotomy. The cardiomediastinal silhouette is within normal limit s. Atheromatous calcifications are present in the arch of a tortuous aorta. Degenerative changes of the AC joints and spine are noted. IMPRESSION: 1. Right greater than left lung base consolidation. Follow-up to resolution is recommended. 2. Blunted costophrenic angles may represent atelectasis or scar versus small pleural effusions. 3. Borderline cardiomegaly.
[2016-11-07] MEDS ORDERED: cefTRIAXone Inj 2 GM in Sodium Chloride 0.9% 100 ML IV ONE (01:03)
[2016-11-07] MEDS ORDERED: CEFTRIAXONE SODIUM 2 GM VIAL IV ONE ×2 (01:38→11:11)
[2016-11-07] MEDS ORDERED: Sodium Chloride 0.9% 100 ML IV ONE ×2 (01:39→12:11)
[2016-11-07] MEDS: LEVOTHYROXINE 75 MCG TABLET PO SCH (05:52)
[2016-11-07] MEDS ORDERED: Sodium Chloride 0.9% 50 ML IV ONE (08:23)
[2016-11-07] MEDS: NORMAL SALINE 10 ML SYRINGE FLUSH IVP PRN (08:30)
[2016-11-07] MEDS: CLOPIDOGREL 75 MG TABLET PO SCH (08:48)
[2016-11-07] MEDS: LevETIRAcetam Tab 500 MG TABLET PO SCH ×3 (08:48→22:28)
[2016-11-07] MEDS: ALPRAZolam Tab 1 MG TABLET PO SCH ×4 (08:48→21:26)
[2016-11-07] MEDS: ASPIRIN EC 81 MG TABLET PO SCH (08:48)
[2016-11-07] MEDS: QUEtiapine Tab 25 MG TAB PO SCH ×2 (08:48→21:26)
[2016-11-07] MEDS: CHOLECALCIFEROL 1000 IU TABLET PO SCH (09:10)
[2016-11-07] MEDS ORDERED: Magnesium Sulfate 2gm (Premix) 2 GM in Premix 1 BAG IV ONE (10:16)
--- NOTE | 2016-11-07 10:16 | PDOC(PROG) ---
Interval History: Was called by the nurse in the middle the night patient had the fever 100.1 some tachycardia and productive sputum he has swallowing difficulties and a year probably aspirated. Differential diagnosis could be bronchitis doing well this morning he was treated with clindamycin and Rocephin. Vitals are stable Objective : Data - Labs CBC and BMP: 11/06/16 23:43 11/06/16 23:50 Labs - Last 24 Hours: Laboratory Results 11/06/16 11/06/16 Range/Units 23:43 23:50 WBC 4.64 L (4.8-10.8) 10^3/uL RBC 4.48 L (4.70-6.10) 10^6/uL Hgb 13.2 L (14.0-18.0) g/dL Hct 38.5 L (42.0-52.0) % MCV 85.9 (80-90) FL MCH 29.5 (27-31) PG MCHC 34.3 (33-37) g/dL RDW Std Deviation 43.6 (39-50) fL RDW Coeff of Dio 14.3 (11.5-14.5) % Plt Count 161 (140-350) 10*3/uL MPV 9.6 (7.4-12.2) FL Sodium 133 L (135-145) meq/L Potassium 4.0 (3.8-5.2) meq/L Chloride 104 (98-112) meq/L Carbon Dioxide 19 L (23-33) meq/L Anion Gap 10 (5-20) BUN 11 (7-22) mg/dL Creatinine 0.7 (0.70-1.50) mg/dL Estimated GFR (>60 ml/min/1.73m(2)) BUN/Creatinine Ratio 15.71 (6-20) Glucose 105 (78-110) mg/dL Calculated Osmolality 274.0 (267-292) mOsm/kg Calcium 8.4 L (8.7-10.7) mg/dL Total Bilirubin 2.0 H (0.3-1.2) mg/dL AST 34 (21-57) IU/L ALT 44 (21-72) IU/L Alkaline Phosphatase 159 H (38-126) IU/L Total Protein 6.2 (6.1-8.0) g/dL Albumin 3.3 L (3.5-4.8) g/dL Globulin 2.9 (2.50-4.10) g/dL Albumin/Globulin Ratio 1.10 L (1.3-2.0) mg/g Objective : Exam - General General Appearance: Cooperative - Eye Eye Exam: Normal Appearance - Neck Neck Exam: Normal Inspection - Respiratory Respiratory Exam: Clear to Auscultation - Bilaterally, Decreased Breath Sounds - Cardiovascular Cardiovascular Exam: RRR, No Murmur, No Clicks - Extremities Extremities Exam: No Clubbing Present, No Edema Present - Neurological Neurological Exam: Alert Additional Neurological Exam Details: Follows commands - Psychiatric Psychiatric Exam: Flat Affect Assessment and Plan - Patient Problems (1) BPH (benign prostatic hyperplasia) Current Visit: Yes Status: Chronic Qualifiers: Prostatic enlargement morphology: unspecified morphology Lower urinary tract symptom presence: symptoms present Qualified Description: Benign prostatic hyperplasia with lower urinary tract symptoms, unspecified morphology Qualifier Code(s): (N40.1) Benign prostatic hyperplasia with lower urinary tract symptoms (2) Dementia Current Visit: Yes Status: Acute Qualifiers: Dementia type: Alzheimer's disease Alzheimer's disease onset: late- onset Dementia behavioral disturbance: with behavioral disturbance Qualified Description: Late onset Alzheimer's disease with behavioral disturbance Qualifier Code(s): (G30.1) Alzheimer's disease with late onset , (F02.81) Dementia in other diseases classified elsewhere with behavioral disturbance (3) Hyponatremia syndrome Current Visit: Yes Status: Chronic (4) Left shoulder pain Current Visit: Yes Status: Acute (5) Aspiration pneumonia Current Visit: Yes Status: Acute Comment: Most likely this is the top of the working diagnosis CT scan is pending patient was started on Rocephin still strep pneumo is the most common pathogen but because of his surgical permit 80s and the long length of stay in the hospital I will add Clinda for anaerobes
--- NOTE | 2016-11-07 10:22 | OT.PROG ---
Progress Note Progress Note: Pt was receiving CT this morning and when that was finished with nursing request as pt was quite fatigued no therapy administered today.
--- NOTE | 2016-11-07 10:44 | EKG ---
[address] [place] [address] Measurements Intervals [place] Rate: 77 P: CA: 0 QRS: 27 QRSD: 109 T: 85 QT: 419 QTc: 451 Interpretive Statements SINUS RHYTHM WITH INTERMITTANT AV DISSOCIATION AND POSSIBLE INTERMITTANT [place] BLOCK VENTRICULAR PREMATURE COMPLEXES LONG RHYTHM STRIP NEEDED ABNORMAL RHYTHM ECG Compared to ECG 10/28/2016 20:47:24 Electronically Signed On 11-07-16 14:19:01 MDT by Panfilo Kwon [email or web address]
--- NOTE | 2016-11-07 10:54 | DI ---
HISTORY: Cough and fever. PREVIOUS EXAM: July 03, 2016 TECHNIQUE: Multiple helically acquired CT images are obtained through the chest with intravenous con trast. FINDINGS: CT images demonstrate new airspace disease predominantly within the right middle lobe. The re is some stable airspace disease within the posterior lung bases most consistent with atelectasis. Coronary artery calcifications and peripheral vascular calcifications are stable. Degenerative changes of the shoulders and spine are also stable. Patient is status post sternotomy. The upper abdomen is unremarkable. IMPRESSION: 1. New right middle lobe pneumonia.
[2016-11-07] MEDS ORDERED: Apixaban 5 MG TABLET PO ONE (12:10)
[2016-11-07] MEDS: cefTRIAXone Inj 2 GM in Sodium Chloride 0.9% 100 ML IV SCH (12:16)
[2016-11-07] MEDS: Apixaban Tab 2.5 MG TABLET PO SCH ×2 (12:23→21:25)
[2016-11-08] MEDS: LEVOTHYROXINE 75 MCG TABLET PO SCH (06:59)
[2016-11-08] MEDS: Clindamycin 900mg (Premix) 900 MG in Dextrose 1 BAG IV SCH ×3 (07:07→23:41)
[2016-11-08] MEDS ORDERED: METOPROLOL SUCCINATE 25 MG SR 24H TABLET PO SCH (09:00)
--- NOTE | 2016-11-08 09:51 | OT.PROG ---
Progress Note Progress Note: S: pt refused therapy today.
[2016-11-08] MEDS: QUEtiapine Tab 25 MG TAB PO SCH ×2 (09:55→20:36)
[2016-11-08] MEDS: CHOLECALCIFEROL 1000 IU TABLET PO SCH (09:55)
[2016-11-08] MEDS: ASPIRIN EC 81 MG TABLET PO SCH (09:55)
[2016-11-08] MEDS: ALPRAZolam Tab 1 MG TABLET PO SCH ×4 (09:55→20:36)
[2016-11-08] MEDS: CLOPIDOGREL 75 MG TABLET PO SCH (09:56)
[2016-11-08] MEDS: Apixaban Tab 2.5 MG TABLET PO SCH ×2 (09:56→20:37)
[2016-11-08] MEDS: LevETIRAcetam Tab 500 MG TABLET PO SCH ×2 (09:56→20:37)
[2016-11-08 09:58] LABS: BASOPHILS # (AUTO) 0.02 10*3/UL; BASOPHILS % (AUTO) 0.6 % (0-1); EOSINOPHILS # (AUTO) 0.16 10*3/UL; EOSINOPHILS % (AUTO) 4.8 % (0-8); HEMATOCRIT 32.2 % (42.0-52.0); HEMOGLOBIN 10.6 g/dL (14.0-18.0); LYMPHOCYTES # (AUTO) 0.39 10*3/uL; MEAN CORPUSCULAR HEMOGLOBIN 29.4 PG (27-31); MEAN CORPUSCULAR HGB CONC 32.9 g/dL (33-37); MEAN CORPUSCULAR VOLUME 89.2 FL (80-90); MEAN PLATELET VOLUME 9.4 FL (7.4-12.2); MONOCYTES # (AUTO) 0.31 10*3/UL (0.3-0.8); MONOCYTES % (AUTO) 9.3 % (5-15); NEUTROPHILS # (AUTO) 2.43 10*3/UL; NEUTROPHILS % (AUTO) 73.3 % (50-80); RED BLOOD COUNT 3.61 10^6/uL (4.70-6.10)
[2016-11-08] MEDS ORDERED: Sodium Chloride 0.9% 100 ML IV ONE (10:01)
[2016-11-08 10:06] LABS: PLATELET MORPHOLOGY COMMENT NORMAL MORPHOLOGY (NORM); RBC MORPHOLOGY COMMENT NORMAL MORPHOLOGY (NORM); WBC MORPHOLOGY COMMENT NORMAL MORPHOLOGY (NORM)
[2016-11-08] MEDS: cefTRIAXone Inj 2 GM in Sodium Chloride 0.9% 100 ML IV SCH (10:08)
[2016-11-08 10:09] LABS: BUN/CREATININE RATIO 18.57 (6-20); CALCIUM 8.2 mg/dL (8.7-10.7); SERUM ALBUMIN 2.7 g/dL (3.5-4.8)
[2016-11-08] MEDS: Sodium Chloride 0.9% 1,000 ML PRIMARY IV SCH (14:49)
--- NOTE | 2016-11-08 19:37 | PDOC(PROG) ---
Date and Time of Service: 11/08/2016, 1600 Interval History: I saw the patient, spoke to him, and spoke to his , and spent a total of about 40 minutes this patient today. He cannot really voice a lot of complaints today other than he wants to go home. His dementia seems to be a little worse. He has been refusing therapy. He is getting weaker. He is losing weight. I spoke in depth with the patient's about which direction to go next. No further seizure activity. There was some blood in the catheter the last 2 days, but this appears to be cleared. Minimal blood is in the patient's diaper. Objective : Data - Labs CBC and BMP: 11/08/16 09:45 11/08/16 09:45 Labs - Last 24 Hours: Laboratory Results 11/07/16 11/08/16 Range/Units 19:00 09:45 WBC 3.32 L (4.8-10.8) 10^3/uL RBC 3.61 L (4.70-6.10) 10^6/uL Hgb 10.6 L (14.0-18.0) g/dL Hct 32.2 L (42.0-52.0) % MCV 89.2 (80-90) FL MCH 29.4 (27-31) PG MCHC 32.9 L (33-37) g/dL RDW Std Deviation 44.8 (39-50) fL RDW Coeff of Dio 14.2 (11.5-14.5) % Plt Count 132 L (140-350) 10*3/uL MPV 9.4 (7.4-12.2) FL Immature Gran % (Auto) 0.3 (0-5) % Neut % (Auto) 73.3 (50-80) % Lymph % (Auto) 11.7 (10-50) % [place] % (Auto) 9.3 (5-15) % Eos % (Auto) 4.8 (0-8) % Baso % (Auto) 0.6 (0-1) % Immature Gran # (Auto) 0.01 10*3/UL Neut # (Auto) 2.43 10*3/UL Lymph # (Auto) 0.39 10*3/uL [place] # (Auto) 0.31 (0.3-0.8) 10*3/UL Eos # (Auto) 0.16 10*3/UL Baso # (Auto) 0.02 10*3/UL WBC Morphology Comment Normal morphology (NORM) Plt Morphology Comment Normal morphology (NORM) RBC Morph Comment Normal morphology (NORM) Sodium 138 (135-145) meq/L Potassium 3.9 (3.8-5.2) meq/L Chloride 107 (98-112) meq/L Carbon Dioxide 24 (23-33) meq/L Anion Gap 7 (5-20) BUN 13 (7-22) mg/dL Creatinine 0.7 (0.70-1.50) mg/dL Estimated GFR (>60 ml/min/1.73m(2)) BUN/Creatinine Ratio 18.57 (6-20) Glucose 87 (78-110) mg/dL Calculated Osmolality 284.0 (267-292) mOsm/kg Calcium 8.2 L (8.7-10.7) mg/dL Total Bilirubin 0.6 (0.3-1.2) mg/dL AST 26 (21-57) IU/L ALT 38 (21-72) IU/L Alkaline Phosphatase 129 H (38-126) IU/L Troponin I 0.018 (< 0.040) ng/mL Total Protein 5.4 L (6.1-8.0) g/dL Albumin 2.7 L (3.5-4.8) g/dL Globulin 2.7 (2.50-4.10) g/dL Albumin/Globulin Ratio 1.00 L (1.3-2.0) mg/g Objective : Exam - General General Appearance: No Acute Distress, Cooperative Additional General Exam Details: Vital Signs - Last Taken Temperature 98 F 11/08/16 16:44 Pulse Rate 44 L 11/08/16 16:44 Respiratory Rate 15 11/08/16 16:44 Blood Pressure 118/46 11/08/16 16:44 Pulse Ox 94 11/08/16 16:44 - Eye Eye Exam: No Scleral Icterus - ENT ENT Exam: Mucous Membranes Moist - Respiratory Respiratory Exam: Breathing Non Labored, Crackles (Right side) - Cardiovascular Cardiovascular Exam: No Murmur, No Clicks, No Gallops, No Rubs, Irregular Rhythm, Bradycardia, No JVD - GI/Abdominal GI/Abdominal Exam: Normal Bowel Sounds, Non Tender, Non Distended, Soft - Exam: Mott Catheter in Place - Extremities Extremities Exam: No Clubbing Present, No Edema Present, No Cyanosis Present - Neurological Neurological Exam: Alert, No Facial Droop, Speech Intact / Clear, Moves All Extremities Equally Additional Neurological Exam Details: Oriented to person. Oriented to place. Not oriented to time or situation. Assessment and Plan - Patient Problems (1) Aspiration pneumonia Current Visit: Yes Status: Acute Qualifiers: Aspiration pneumonia type: due to regurgitated food Laterality: right Lung location: middle lobe of lung Qualified Description: Aspiration pneumonia of right middle lobe due to regurgitated food Qualifier Code(s) : (J69.0) Pneumonitis due to inhalation of food and vomit (2) Seizure-like activity Current Visit: Yes Status: Acute (3) Urinary retention due to benign prostatic hyperplasia Current Visit: Yes Status: Chronic (4) Indwelling catheter present on admission Current Visit: Yes Status: Acute (5) BPH (benign prostatic hyperplasia) Current Visit: Yes Status: Chronic Qualifiers: Prostatic enlargement morphology: unspecified morphology Lower urinary tract symptom presence: symptoms present Qualified Description: Benign prostatic hyperplasia with lower urinary tract symptoms, unspecified morphology Qualifier Code(s): (N40.1) Benign prostatic hyperplasia with lower urinary tract symptoms (6) Coronary artery disease Current Visit: Yes Status: Chronic Qualifiers: Coronary Disease-Associated Artery/Lesion type: bypass graft [place] vs. transplanted heart: [place] heart Associated angina: without angina Qualified Description: Coronary artery disease involving coronary bypass graft of [place] heart without angina pectoris Qualifier Code(s): (I25.810) Atherosclerosis of coronary artery bypass graft(s) without angina pectoris (7) Dementia Current Visit: Yes Status: Acute Qualifiers: Dementia type: Alzheimer's disease Alzheimer's disease onset: late- onset Dementia behavioral disturbance: with behavioral disturbance Qualified Description: Late onset Alzheimer's disease with behavioral disturbance Qualifier Code(s): (G30.1) Alzheimer's disease with late onset , (F02.81) Dementia in other diseases classified elsewhere with behavioral disturbance (8) Hyponatremia syndrome Current Visit: Yes Status: Chronic (9) Hypothyroidism Current Visit: Yes Status: Chronic Qualifiers: Hypothyroidism type: acquired Qualified Description: Acquired hypothyroidism Qualifier Code(s): (E03.9) Hypothyroidism, unspecified (10) Ventricular bigeminy Current Visit: Yes Status: Chronic (11) Altered mental status Current Visit: Yes Status: Acute Qualifiers: Altered mental status type: unspecified Qualified Description: Altered mental status, unspecified altered mental status type Qualifier Code(s): ( R41.82) Altered mental status, unspecified - Assessment / Plan Additional Assessment/Plan Details: Overall, the patient has been deteriorating physically, and mentally. His dementia is worsened. His local activity is much more limited, and he is now refusing therapy. Some of this may be in relation to pneumonia, but thus far not a brisk clinical response. I spoke with the patient's , Danii, and we discussed options for care moving forward. Overall, I think the patient is dying, and would benefit from hospice. This is based on advancing dementia, worsening activities of daily living, seizure disorder, chronic urinary obstruction, and now pneumonia, secondary to aspiration. The patient has been trialed on dietary consistency modifications, including thickened liquids and has absolutely no tolerance of this diet. Danii thinks the patient would benefit from having a regular consistency diet for comfort. She is in favor of looking into hospice and options for hospice placement. She understands that the patient has limited time based on his deteriorating health. For now, continue treatment for aspiration pneumonia. Place hospice consult.
[2016-11-08] MEDS: ACETAMINOPHEN 325 MG TABLET PO PRN (21:27)
[2016-11-08] MEDS: LORazepam 2 MG/1 ML VIAL IVP PRN (21:27)
[2016-11-09] MEDS: Sodium Chloride 0.9% 1,000 ML PRIMARY IV SCH (04:44)
[2016-11-09] MEDS: LEVOTHYROXINE 75 MCG TABLET PO SCH (05:54)
[2016-11-09 06:39] LABS: BASOPHILS # (AUTO) 0.03 10*3/UL; BASOPHILS % (AUTO) 0.8 % (0-1); EOSINOPHILS # (AUTO) 0.18 10*3/UL; EOSINOPHILS % (AUTO) 5.1 % (0-8); HEMATOCRIT 31.6 % (42.0-52.0); HEMOGLOBIN 10.9 g/dL (14.0-18.0); LYMPHOCYTES # (AUTO) 0.39 10*3/uL; MEAN CORPUSCULAR HGB CONC 34.5 g/dL (33-37); MEAN CORPUSCULAR VOLUME 87.1 FL (80-90); MEAN PLATELET VOLUME 9.5 FL (7.4-12.2); MONOCYTES # (AUTO) 0.24 10*3/UL (0.3-0.8); MONOCYTES % (AUTO) 6.8 % (5-15); NEUTROPHILS # (AUTO) 2.67 10*3/UL; NEUTROPHILS % (AUTO) 75.7 % (50-80); RED BLOOD COUNT 3.63 10^6/uL (4.70-6.10)
[2016-11-09 06:57] LABS: PLATELET MORPHOLOGY COMMENT NORMAL MORPHOLOGY (NORM); RBC MORPHOLOGY COMMENT NORMAL MORPHOLOGY (NORM); WBC MORPHOLOGY COMMENT NORMAL MORPHOLOGY (NORM)
[2016-11-09 07:00] LABS: BUN/CREATININE RATIO 11.42 (6-20); CALCIUM 7.8 mg/dL (8.7-10.7)
[2016-11-09] MEDS: Clindamycin 900mg (Premix) 900 MG in Dextrose 1 BAG IV SCH (08:06)
[2016-11-09] MEDS: NORMAL SALINE 10 ML SYRINGE FLUSH IVP PRN (08:17)
[2016-11-09] MEDS: QUEtiapine Tab 25 MG TAB PO SCH ×2 (09:04→20:24)
[2016-11-09] MEDS: LevETIRAcetam Tab 500 MG TABLET PO SCH ×2 (09:04→20:24)
[2016-11-09] MEDS: Apixaban Tab 2.5 MG TABLET PO SCH ×2 (09:04→20:23)
[2016-11-09] MEDS: CHOLECALCIFEROL 1000 IU TABLET PO SCH (09:04)
[2016-11-09] MEDS: ASPIRIN EC 81 MG TABLET PO SCH (09:05)
[2016-11-09] MEDS: ALPRAZolam Tab 1 MG TABLET PO SCH ×4 (09:05→20:24)
[2016-11-09] MEDS: CLOPIDOGREL 75 MG TABLET PO SCH (09:05)
--- NOTE | 2016-11-09 10:11 | PT.PROG ---
Progress Note Progress Note: S. Patient stated that he would go to therapy but not too long. O. Patient ambulated 175 feet to the therapy gym where he used the arm bike and the bicycle x 5 minutes each. Patient ambulated 175 feet back up to his room where he was left in chair with alarm and call light. A. Patient continues to be very impulsive and require max verbal cues to slow down during ambulation and to use the walker properly. Patient was able to perform cardio exercises however refused to go any longer than 5 minutes each. He continues to struggle with fatigue and is unable to complete all tasks due to fatigue. Patient would continue to benefit from skilled therapy at this time. P. continue POC.
[2016-11-09] MEDS: cefTRIAXone Inj 2 GM in Sodium Chloride 0.9% 100 ML IV SCH (10:24)
--- NOTE | 2016-11-09 11:56 | PDOC(PROG) ---
Date and Time of Service: 11/09/2016, 1154 Interval History: Denies chest pain or shortness of breath. This fatiguing much more frequently with physical therapy and is refusing to do more therapy as of late. No nausea or vomiting. He is quite bradycardic, but denies any palpitations, chest pain, or other symptoms. No syncopal events to this point. Still has crackles on exam but improved slightly. In discussion with the patient's , Danii, she would like to have another day to decide on hospice versus fdc placement with potential hospice care there. Objective : Data - Labs CBC and BMP: 11/09/16 05:00 11/09/16 05:00 Labs - Last 24 Hours: Laboratory Results 11/09/16 Range/Units 05:00 WBC 3.53 L (4.8-10.8) 10^3/uL RBC 3.63 L (4.70-6.10) 10^6/uL Hgb 10.9 L (14.0-18.0) g/dL Hct 31.6 L (42.0-52.0) % MCV 87.1 (80-90) FL MCH 30.0 (27-31) PG MCHC 34.5 (33-37) g/dL RDW Std Deviation 42.7 (39-50) fL RDW Coeff of Dio 14.0 (11.5-14.5) % Plt Count 142 (140-350) 10*3/uL MPV 9.5 (7.4-12.2) FL Immature Gran % (Auto) 0.6 (0-5) % Neut % (Auto) 75.7 (50-80) % Lymph % (Auto) 11.0 (10-50) % [place] % (Auto) 6.8 (5-15) % Eos % (Auto) 5.1 (0-8) % Baso % (Auto) 0.8 (0-1) % Immature Gran # (Auto) 0.02 10*3/UL Neut # (Auto) 2.67 10*3/UL Lymph # (Auto) 0.39 10*3/uL [place] # (Auto) 0.24 L (0.3-0.8) 10*3/UL Eos # (Auto) 0.18 10*3/UL Baso # (Auto) 0.03 10*3/UL WBC Morphology Comment Normal morphology (NORM) Plt Morphology Comment Normal morphology (NORM) RBC Morph Comment Normal morphology (NORM) Sodium 137 (135-145) meq/L Potassium 3.8 (3.8-5.2) meq/L Chloride 108 (98-112) meq/L Carbon Dioxide 23 (23-33) meq/L Anion Gap 6 (5-20) BUN 8 (7-22) mg/dL Creatinine 0.7 (0.70-1.50) mg/dL Estimated GFR (>60 ml/min/1.73m(2)) BUN/Creatinine Ratio 11.42 (6-20) Glucose 86 (78-110) mg/dL Calculated Osmolality 280.0 (267-292) mOsm/kg Calcium 7.8 L (8.7-10.7) mg/dL Objective : Exam - General General Appearance: No Acute Distress, Cooperative Additional General Exam Details: Vital Signs - Last Taken Temperature 97.6 F 11/09/16 10:54 Pulse Rate 42 L 11/09/16 10:54 Respiratory Rate 17 11/09/16 10:54 Blood Pressure 144/42 11/09/16 10:54 Pulse Ox 97 11/09/16 10:54 - Eye Eye Exam: No Scleral Icterus - Respiratory Respiratory Exam: Breathing Non Labored, Crackles - Cardiovascular Cardiovascular Exam: No Murmur, No Clicks, No Gallops, No Rubs, Bradycardia, No JVD - GI/Abdominal GI/Abdominal Exam: Normal Bowel Sounds, Non Tender, Non Distended, Soft - Extremities Extremities Exam: No Clubbing Present, No Edema Present, No Cyanosis Present - Neurological Neurological Exam: Alert, No Facial Droop, Speech Intact / Clear, Moves All Extremities Equally Assessment and Plan - Patient Problems (1) Aspiration pneumonia Current Visit: Yes Status: Acute Qualifiers: Aspiration pneumonia type: due to regurgitated food Laterality: right Lung location: middle lobe of lung Qualified Description: Aspiration pneumonia of right middle lobe due to regurgitated food Qualifier Code(s) : (J69.0) Pneumonitis due to inhalation of food and vomit (2) Seizure-like activity Current Visit: Yes Status: Acute (3) Urinary retention due to benign prostatic hyperplasia Current Visit: Yes Status: Chronic (4) Indwelling catheter present on admission Current Visit: Yes Status: Acute (5) BPH (benign prostatic hyperplasia) Current Visit: Yes Status: Chronic Qualifiers: Prostatic enlargement morphology: unspecified morphology Lower urinary tract symptom presence: symptoms present Qualified Description: Benign prostatic hyperplasia with lower urinary tract symptoms, unspecified morphology Qualifier Code(s): (N40.1) Benign prostatic hyperplasia with lower urinary tract symptoms (6) Coronary artery disease Current Visit: Yes Status: Chronic Qualifiers: Coronary Disease-Associated Artery/Lesion type: bypass graft [place] vs. transplanted heart: [place] heart Associated angina: without angina Qualified Description: Coronary artery disease involving coronary bypass graft of [place] heart without angina pectoris Qualifier Code(s): (I25.810) Atherosclerosis of coronary artery bypass graft(s) without angina pectoris (7) Dementia Current Visit: Yes Status: Acute Qualifiers: Dementia type: Alzheimer's disease Alzheimer's disease onset: late- onset Dementia behavioral disturbance: with behavioral disturbance Qualified Description: Late onset Alzheimer's disease with behavioral disturbance Qualifier Code(s): (G30.1) Alzheimer's disease with late onset , (F02.81) Dementia in other diseases classified elsewhere with behavioral disturbance (8) Hyponatremia syndrome Current Visit: Yes Status: Chronic (9) Hypothyroidism Current Visit: Yes Status: Chronic Qualifiers: Hypothyroidism type: acquired Qualified Description: Acquired hypothyroidism Qualifier Code(s): (E03.9) Hypothyroidism, unspecified (10) Ventricular bigeminy Current Visit: Yes Status: Chronic (11) Altered mental status Current Visit: Yes Status: Acute Qualifiers: Altered mental status type: unspecified Qualified Description: Altered mental status, unspecified altered mental status type Qualifier Code(s): ( R41.82) Altered mental status, unspecified - Assessment / Plan Additional Assessment/Plan Details: Today is day 3 of antibiotics, will treat for 7 days. I can stop IV medications at this point. The patient on by mouth medications and will switch to Augmentin. Await placement ideas for hospice versus fdc facility. Continue Keppra. Continue anxiety medications. I cannot tell whether the patient is benefiting from Seroquel but we'll make no changes to that at this time. It is been explained to the patient that this medication is associated with higher risk of from heart attack and/or stroke, but for quality of life from dementia standpoint is preferred at this time. Overall prognosis guarded with 6 months or less to live, most likely.
--- NOTE | 2016-11-09 15:56 | OT.PROG ---
Progress Note Progress Note: S. Patient stated that his left wrist was hurting and that he didn't want to bother his wrist by exercising. O. Patient ambulated 175 feet to the therapy gym where he used the arm bike x 5 minutes. Patient tolerate 15 min of UE strengthening using a 2 pound weight and yellow thera-putty. Patient had a difficult time with a cognitive task where he got frustrated and refused to finish task. Patient ambulated 175 feet back up to his room where he was left in chair with alarm and call light. A. Patient continues to be impulsive and has decreased stability which requires max verbal prompting to slow down. Patient gets fatigues easily when doing various exercises. Patient would continue to benefit from skilled therapy at this time. P. continue POC.
[2016-11-09] MEDS: CLINDAMYCIN 150 MG CAPSULE PO SCH ×2 (16:02→20:23)
[2016-11-10] MEDS: LEVOTHYROXINE 75 MCG TABLET PO SCH (05:41)
[2016-11-10] MEDS: QUEtiapine Tab 25 MG TAB PO SCH ×2 (08:55→20:29)
[2016-11-10] MEDS: Apixaban Tab 2.5 MG TABLET PO SCH (08:55)
[2016-11-10] MEDS: CLOPIDOGREL 75 MG TABLET PO SCH (08:55)
[2016-11-10] MEDS: CHOLECALCIFEROL 1000 IU TABLET PO SCH (08:55)
[2016-11-10] MEDS: CLINDAMYCIN 150 MG CAPSULE PO SCH (08:55)
[2016-11-10] MEDS: ASPIRIN EC 81 MG TABLET PO SCH (08:55)
[2016-11-10] MEDS: ALPRAZolam Tab 1 MG TABLET PO SCH ×4 (08:56→20:30)
[2016-11-10] MEDS: LevETIRAcetam Tab 500 MG TABLET PO SCH ×2 (08:56→20:29)
--- NOTE | 2016-11-10 11:38 | PT.PROG ---
Progress Note Progress Note: S. Patient stated that he would like to go to the therapy gym this morning. O. Patient ambulated 175 feet to the therapy gym where he used the arm bike, bicycle, and the nu-step all x 5 minutes each. Patient ambulated 175 feet back to his room where he was left in bed with alarm and call light. A. Patient was able to tolerate 5 more minutes of exercise today compared to yesterday. Patient continues to be very impulsive and requires max verbal cues to slow down during ambulation and use his walker properly. Patient would continue to benefit from skilled therapy to increase endurance. P. Continue POC.
--- NOTE | 2016-11-10 15:11 | DCSUMMARY ---
Hospitalization Summary Admit Date: 10/29/16 Discharge Date: 11/11/16 Primary Diagnosis:: aspiration pneumonia Hospital Course: This is an 80-year-old male who's had several admissions related to urinary tract infections. 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 He has been waiting for clearance to get a repeat TURP procedure of some type done to remove the catheter, but came in and a very agitated and confused and altered state. The patient has known dementia. In terms of the Mott catheterization, there was no evidence for urinary tract infection. There was no fever and the white count was normal. The catheter was changed out during the hospital stay and ultimately based on the patient's advanced dementia, I have discussed this with his in detail and currently the plan is to hold off on any future surgeries due to significantly decreased quality of life and risk of worsening dementia. 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 In terms of the patient's coronary artery disease, he is on Plavix and will remain on that through the end of December. After the end of December, it is desired by the patient and his to stop that medicine. He also has atrial fibrillation which has had a low ventricular rate here and in fact he's developed significant bradycardia, although asymptomatic at this time. I spoke with the patient's regarding a pacemaker and felt that based on the patient 's advanced dementia it would be best to not place the pacemaker. The patient did develop an aspiration pneumonia and a swallow study confirmed that the patient chronically aspirates. He was placed on thickened liquids and different consistency foods, but could not tolerate that diet at all, and it was decided that for comfort and quality of life, that the patient would continue to eat a regular diet and drink regular consistency fluids. The patient's is aware that he will develop a pneumonia again at some point and may elect to not even treated at that time. We elected to stop antibiotics here after 5-6 days right after completion of therapy as the patient has not made any significant strides in terms of his strength and overall medical condition. He was treated with Rocephin and clindamycin. In terms of the atrial fibrillation, the patient was placed on eliquis, but in discussion with patient's , she like to discontinue that medication because of bleeding complications, particularly in relation to aspirin and Plavix. She understands that there is less stroke prevention with aspirin, but overall it seems like a better option based on his quality of life. In terms of dementia, the patient has an agitated dementia that's significantly improved during the hospital when we also figured out that he was having clonic seizures. He is on Seroquel for this and has had a chronic anxiety problem for some time and has been on Xanax for the last 3-1/2 years. The patient does not tolerate reductions and Xanax therapy and it could put him at risk for worsening seizures so we placed him back on it. For his seizures, he did much better on Keppra 1000 mg twice a day. Given all these complications and worsening medical conditions in the setting of advanced dementia, we determine the best placement for the patient would be jail facility and the patient's selected [facility] for his halfway care. He will discharge her tomorrow. Prior to discharge we will give him a dose of Ativan. Today, no complaints of chest pain, shortness breath, nausea or vomiting. He is less aware of his surroundings every day. He is not oriented to situation or to time. Assessment and Plan: 1. As per discharge assessments noted 2. Disposition: Patient will be discharged to [facility] jail facility 3. Condition on discharge, stable and improved. Long-term prognosis poor and I suspect that the patient probably has 6 months or less to live based on the complexities and advancement of these medical issues. 4. Diet: regular diet 5. Activities: As per physician at [facility] and physical therapy. 6. Follow-Up: 1. Primary care provider at [facility] 2. 7. Medications at the Time of Discharge: Home Medications Medication Instructions Recorded Confirmed Type Aspirin [Aspir 81] 81 mg PO DAILY tab 05/22/15 10/28/16 History Nitroglycerin SL Tab [Nitrostat 0.4 mg SL as directed PRN #1 11/07/15 10/28/16 Clinic SL Tab] bottle NS Clopidogrel Bisulfate [Plavix] 75 mg PO DAILY 01/19/16 10/28/16 History Levothyroxine Sodium 1 tab PO DAILY #90 tab 06/01/16 10/28/16 Clinic ALPRAZolam Tab [Xanax Tab] 0.5 mg PO QID #120 tab 11/10/16 Rx Levetiracetam 1,000 mg PO BID #60 tablet 11/10/16 Rx QUEtiapine Tab [SEROquel Tab] 50 mg PO DAILY tab 11/10/16 Rx QUEtiapine Tab [SEROquel Tab] 75 mg PO BEDTIME tab 11/10/16 Rx 8. Time, care, counseling and coordination of care for this discharge is greater than 30 minutes. Exam - Vitals Vital Signs: Vital Signs Height 5 ft 10 in Vital Signs - Last Taken Temperature 97.5 F 11/10/16 12:13 Pulse Rate 45 L 11/10/16 12:13 Respiratory Rate 20 11/10/16 12:13 Blood Pressure 130/46 11/10/16 12:13 Pulse Ox 95 11/10/16 12:13 Weight 174 lb - General General Appearance: POSITIVE: No Acute Distress, Cooperative - Eye Eye Exam: POSITIVE: No Scleral Icterus - Respiratory Respiratory Exam: POSITIVE: Breathing Non Labored, Coarse Breath Sounds - Cardiovascular Cardiovascular Exam: POSITIVE: No Murmur, No Clicks, No Gallops, No Rubs, Bradycardia, No JVD - GI/Abdominal GI/Abdominal Exam: POSITIVE: Normal Bowel Sounds, Non Tender, Non Distended, Soft - Extremities Extremities Exam: POSITIVE: No Clubbing Present, No Edema Present, No Cyanosis Present - Neurological Neurological Exam: POSITIVE: Alert, No Facial Droop, Speech Intact / Clear, Moves All Extremities Equally - Psychiatric Psychiatric Exam: POSITIVE: Flat Affect Data Perinent Studies: Laboratory Results 10/28/16 10/28/16 10/28/16 Range/Units 21:16 21:20 21:37 WBC 7.05 (4.8-10.8) 10^3/uL RBC 4.44 L (4.70-6.10) 10^6/uL Hgb 13.2 L (14.0-18.0) g/dL Hct 38.2 L (42.0-52.0) % MCV 86.0 (80-90) FL MCH 29.7 (27-31) PG MCHC 34.6 (33-37) g/dL RDW Std Deviation 42.7 (39-50) fL RDW Coeff of Dio 14.0 (11.5-14.5) % Plt Count 127 L (140-350) 10*3/uL MPV 9.7 (7.4-12.2) FL Immature Gran % (Auto) 0.1 (0-5) % Neut % (Auto) 79.7 (50-80) % Lymph % (Auto) 9.6 L (10-50) % [place] % (Auto) 8.2 (5-15) % Eos % (Auto) 1.8 (0-8) % Baso % (Auto) 0.6 (0-1) % Immature Gran # (Auto) 0.01 10*3/UL Neut # (Auto) 5.61 10*3/UL Lymph # (Auto) 0.68 10*3/uL [place] # (Auto) 0.58 (0.3-0.8) 10*3/UL Eos # (Auto) 0.13 10*3/UL Baso # (Auto) 0.04 10*3/UL WBC Morphology Comment Normal morphology (NORM) Plt Morphology Comment Normal morphology (NORM) RBC Morph Comment Normal morphology (NORM) VBG pH 7.42 (7.32-7.42) VBG pCO2 31 L (45-55) mmHg VBG HCO3 20 L (22-26) mmol/L VBG Base Excess -5 L (-2-2) MMOL/L Sodium 133 L (135-145) meq/L Potassium 4.3 (3.8-5.2) meq/L Chloride 97 L (98-112) meq/L Carbon Dioxide 21 L (23-33) meq/L Anion Gap 15 (5-20) BUN 10 (7-22) mg/dL Creatinine 1.1 (0.70-1.50) mg/dL Estimated GFR (>60 ml/min/1.73m(2)) BUN/Creatinine Ratio 9.09 (6-20) Glucose 106 (78-110) mg/dL Calculated Osmolality 274.0 (267-292) mOsm/kg Lactic Acid 5.8 H (0.70-2.10) MMOL/L Calcium 9.3 (8.7-10.7) mg/dL Magnesium 2.2 (1.6-2.4) mg/dL Total Bilirubin 0.7 (0.3-1.2) mg/dL AST 24 (21-57) IU/L ALT 32 (21-72) IU/L Alkaline Phosphatase 138 H (38-126) IU/L Total Creatine Kinase 154 (55-170) IU/L Troponin I < 0.012 (< 0.040) ng/mL C-Reactive Protein 1.2 H (0.0-0.9) mg/dL Total Protein 6.7 (6.1-8.0) g/dL Albumin 4.1 (3.5-4.8) g/dL Globulin 2.6 (2.50-4.10) g/dL Albumin/Globulin Ratio 1.50 (1.3-2.0) mg/g Vitamin B12 (239-931) pg/mL Serum Folate (2.76-20.0) NG/ML Ur Collection Type Cath specimen Urine Color Red Urine Clarity Turbid (CLEAR) Urine pH 7.0 (5.0-8.5) Ur Specific [place] 1.020 (1.005-1.030) Urine Protein >300 (NEG) mg/dl Urine Glucose (UA) Negative (NEG) mg/dL Urine Ketones Negative (NEG) Urine Occult Blood Large H (NEG) Urine Nitrate Negative (NEG) Urine Bilirubin Small (NEG) Urine Urobilinogen 0.2 (0.2) EU/dL Ur Leukocyte Esterase Moderate (NEG) Urine RBC >100 (NONE) /hpf Urine WBC 20-50 (NONE) Ur Squamous Epith Cells None (NONE) Ur Renal Epithelial Cell None (NONE) Urine Crystals None Urine Bacteria Few (NONE) Urine Casts None (NONE) Urine Mucus Moderate (NONE) Urine Trichomonas None (NONE) Urine Yeast None (NONE) Ur Culture Indicated? Culture set 10/29/16 11/01/16 11/01/16 Range/Units 06:18 08:40 09:00 WBC 4.80 5.00 (4.8-10.8) 10^3/uL RBC 4.05 L 4.34 L (4.70-6.10) 10^6/uL Hgb 12.0 L 12.8 L (14.0-18.0) g/dL Hct 35.1 L 37.5 L (42.0-52.0) % MCV 86.7 86.4 (80-90) FL MCH 29.6 29.5 (27-31) PG MCHC 34.2 34.1 (33-37) g/dL RDW Std Deviation 42.5 43.6 (39-50) fL RDW Coeff of [place]io 13.9 14.2 (11.5-14.5) % Plt Count 114 L 96 L (140-350) 10*3/uL MPV 9.9 9.7 (7.4-12.2) FL Immature Gran % (Auto) 0.2 0 (0-5) % Neut % (Auto) 74.5 78.0 (50-80) % Lymph % (Auto) 13.3 10.8 (10-50) % [place] % (Auto) 9.0 6.6 (5-15) % Eos % (Auto) 1.7 3.8 (0-8) % Baso % (Auto) 1.3 H 0.8 (0-1) % Immature Gran # (Auto) 0.01 0 10*3/UL Neut # (Auto) 3.58 3.90 10*3/UL Lymph # (Auto) 0.64 0.54 10*3/uL [place] # (Auto) 0.43 0.33 (0.3-0.8) 10*3/UL Eos # (Auto) 0.08 0.19 10*3/UL Baso # (Auto) 0.06 0.04 10*3/UL WBC Morphology Comment Normal morphology Normal morphology (NORM) Plt Morphology Comment Normal morphology Normal morphology (NORM) RBC Morph Comment Normal morphology Normal morphology (NORM) VBG pH (7.32-7.42) VBG pCO2 (45-55) mmHg VBG HCO3 (22-26) mmol/L VBG Base Excess (-2-2) MMOL/L Sodium 134 L 129 L (135-145) meq/L Potassium 4.5 4.1 (3.8-5.2) meq/L Chloride 106 99 (98-112) meq/L Carbon Dioxide 22 L 24 (23-33) meq/L Anion Gap 6 6 (5-20) BUN 7 7 (7-22) mg/dL Creatinine 0.7 0.7 (0.70-1.50) mg/dL Estimated GFR (>60 ml/min/1.73m(2)) BUN/Creatinine Ratio 10.00 10.00 (6-20) Glucose 87 93 (78-110) mg/dL Calculated Osmolality 274.0 265.0 L (267-292) mOsm/kg Lactic Acid (0.70-2.10) MMOL/L Calcium 8.6 L 8.8 (8.7-10.7) mg/dL Magnesium (1.6-2.4) mg/dL Total Bilirubin (0.3-1.2) mg/dL AST (21-57) IU/L ALT (21-72) IU/L Alkaline Phosphatase (38-126) IU/L Total Creatine Kinase (55-170) IU/L Troponin I (< 0.040) ng/mL C-Reactive Protein (0.0-0.9) mg/dL Total Protein (6.1-8.0) g/dL Albumin (3.5-4.8) g/dL Globulin (2.50-4.10) g/dL Albumin/Globulin Ratio (1.3-2.0) mg/g Vitamin B12 421 (239-931) pg/mL Serum Folate 6.40 (2.76-20.0) NG/ML Ur Collection Type Urine Color Urine Clarity (CLEAR) Urine pH (5.0-8.5) Ur Specific [place] (1.005-1.030) Urine Protein (NEG) mg/dl Urine Glucose (UA) (NEG) mg/dL Urine Ketones (NEG) Urine Occult Blood (NEG) Urine Nitrate (NEG) Urine Bilirubin (NEG) Urine Urobilinogen (0.2) EU/dL Ur Leukocyte Esterase (NEG) Urine RBC (NONE) /hpf Urine WBC (NONE) Ur Squamous Epith Cells (NONE) Ur Renal Epithelial Cell (NONE) Urine Crystals Urine Bacteria (NONE) Urine Casts (NONE) Urine Mucus (NONE) Urine Trichomonas (NONE) Urine Yeast (NONE) Ur Culture Indicated? 11/06/16 11/06/16 11/07/16 Range/Units 23:43 23:50 10:00 WBC 4.64 L (4.8-10.8) 10^3/uL RBC 4.48 L (4.70-6.10) 10^6/uL Hgb 13.2 L (14.0-18.0) g/dL Hct 38.5 L (42.0-52.0) % MCV 85.9 (80-90) FL MCH 29.5 (27-31) PG MCHC 34.3 (33-37) g/dL RDW Std Deviation 43.6 (39-50) fL RDW Coeff of Dio 14.3 (11.5-14.5) % Plt Count 161 (140-350) 10*3/uL MPV 9.6 (7.4-12.2) FL Immature Gran % (Auto) (0-5) % Neut % (Auto) (50-80) % Lymph % (Auto) (10-50) % [place] % (Auto) (5-15) % Eos % (Auto) (0-8) % Baso % (Auto) (0-1) % Immature Gran # (Auto) 10*3/UL Neut # (Auto) 10*3/UL Lymph # (Auto) 10*3/uL [place] # (Auto) (0.3-0.8) 10*3/UL Eos # (Auto) 10*3/UL Baso # (Auto) 10*3/UL WBC Morphology Comment (NORM) Plt Morphology Comment (NORM) RBC Morph Comment (NORM) VBG pH (7.32-7.42) VBG pCO2 (45-55) mmHg VBG HCO3 (22-26) mmol/L VBG Base Excess (-2-2) MMOL/L Sodium 133 L (135-145) meq/L Potassium 4.0 (3.8-5.2) meq/L Chloride 104 (98-112) meq/L Carbon Dioxide 19 L (23-33) meq/L Anion Gap 10 (5-20) BUN 11 (7-22) mg/dL Creatinine 0.7 (0.70-1.50) mg/dL Estimated GFR (>60 ml/min/1.73m(2)) BUN/Creatinine Ratio 15.71 (6-20) Glucose 105 (78-110) mg/dL Calculated Osmolality 274.0 (267-292) mOsm/kg Lactic Acid (0.70-2.10) MMOL/L Calcium 8.4 L (8.7-10.7) mg/dL Magnesium (1.6-2.4) mg/dL Total Bilirubin 2.0 H (0.3-1.2) mg/dL AST 34 (21-57) IU/L ALT 44 (21-72) IU/L Alkaline Phosphatase 159 H (38-126) IU/L Total Creatine Kinase (55-170) IU/L Troponin I 0.023 (< 0.040) ng/mL C-Reactive Protein (0.0-0.9) mg/dL Total Protein 6.2 (6.1-8.0) g/dL Albumin 3.3 L (3.5-4.8) g/dL Globulin 2.9 (2.50-4.10) g/dL Albumin/Globulin Ratio 1.10 L (1.3-2.0) mg/g Vitamin B12 (239-931) pg/mL Serum Folate (2.76-20.0) NG/ML Ur Collection Type Urine Color Urine Clarity (CLEAR) Urine pH (5.0-8.5) Ur Specific [place] (1.005-1.030) Urine Protein (NEG) mg/dl Urine Glucose (UA) (NEG) mg/dL Urine Ketones (NEG) Urine Occult Blood (NEG) Urine Nitrate (NEG) Urine Bilirubin (NEG) Urine Urobilinogen (0.2) EU/dL Ur Leukocyte Esterase (NEG) Urine RBC (NONE) /hpf Urine WBC (NONE) Ur Squamous Epith Cells (NONE) Ur Renal Epithelial Cell (NONE) Urine Crystals Urine Bacteria (NONE) Urine Casts (NONE) Urine Mucus (NONE) Urine Trichomonas (NONE) Urine Yeast (NONE) Ur Culture Indicated? 11/07/16 11/07/16 11/07/16 Range/Units 10:45 16:00 19:00 WBC (4.8-10.8) 10^3/uL RBC (4.70-6.10) 10^6/uL Hgb (14.0-18.0) g/dL Hct (42.0-52.0) % MCV (80-90) FL MCH (27-31) PG MCHC (33-37) g/dL RDW Std Deviation (39-50) fL RDW Coeff of [place]io (11.5-14.5) % Plt Count (140-350) 10*3/uL MPV (7.4-12.2) FL Immature Gran % (Auto) (0-5) % Neut % (Auto) (50-80) % Lymph % (Auto) (10-50) % [place] % (Auto) (5-15) % Eos % (Auto) (0-8) % Baso % (Auto) (0-1) % Immature Gran # (Auto) 10*3/UL Neut # (Auto) 10*3/UL Lymph # (Auto) 10*3/uL [place] # (Auto) (0.3-0.8) 10*3/UL Eos # (Auto) 10*3/UL Baso # (Auto) 10*3/UL WBC Morphology Comment (NORM) Plt Morphology Comment (NORM) RBC Morph Comment (NORM) VBG pH (7.32-7.42) VBG pCO2 (45-55) mmHg VBG HCO3 (22-26) mmol/L VBG Base Excess (-2-2) MMOL/L Sodium (135-145) meq/L Potassium (3.8-5.2) meq/L Chloride (98-112) meq/L Carbon Dioxide (23-33) meq/L Anion Gap (5-20) BUN (7-22) mg/dL Creatinine (0.70-1.50) mg/dL Estimated GFR (>60 ml/min/1.73m(2)) BUN/Creatinine Ratio (6-20) Glucose (78-110) mg/dL Calculated Osmolality (267-292) mOsm/kg Lactic Acid (0.70-2.10) MMOL/L Calcium (8.7-10.7) mg/dL Magnesium 2.1 (1.6-2.4) mg/dL Total Bilirubin (0.3-1.2) mg/dL AST (21-57) IU/L ALT (21-72) IU/L Alkaline Phosphatase (38-126) IU/L Total Creatine Kinase (55-170) IU/L Troponin I 0.018 0.018 (< 0.040) ng/mL C-Reactive Protein (0.0-0.9) mg/dL Total Protein (6.1-8.0) g/dL Albumin (3.5-4.8) g/dL Globulin (2.50-4.10) g/dL Albumin/Globulin Ratio (1.3-2.0) mg/g Vitamin B12 (239-931) pg/mL Serum Folate (2.76-20.0) NG/ML Ur Collection Type Urine Color Urine Clarity (CLEAR) Urine pH (5.0-8.5) Ur Specific [place] (1.005-1.030) Urine Protein (NEG) mg/dl Urine Glucose (UA) (NEG) mg/dL Urine Ketones (NEG) Urine Occult Blood (NEG) Urine Nitrate (NEG) Urine Bilirubin (NEG) Urine Urobilinogen (0.2) EU/dL Ur Leukocyte Esterase (NEG) Urine RBC (NONE) /hpf Urine WBC (NONE) Ur Squamous Epith Cells (NONE) Ur Renal Epithelial Cell (NONE) Urine Crystals Urine Bacteria (NONE) Urine Casts (NONE) Urine Mucus (NONE) Urine Trichomonas (NONE) Urine Yeast (NONE) Ur Culture Indicated? 11/08/16 11/09/16 Range/Units 09:45 05:00 WBC 3.32 L 3.53 L (4.8-10.8) 10^3/uL RBC 3.61 L 3.63 L (4.70-6.10) 10^6/uL Hgb 10.6 L 10.9 L (14.0-18.0) g/dL Hct 32.2 L 31.6 L (42.0-52.0) % MCV 89.2 87.1 (80-90) FL MCH 29.4 30.0 (27-31) PG MCHC 32.9 L 34.5 (33-37) g/dL RDW Std Deviation 44.8 42.7 (39-50) fL RDW Coeff of Dio 14.2 14.0 (11.5-14.5) % Plt Count 132 L 142 (140-350) 10*3/uL MPV 9.4 9.5 (7.4-12.2) FL Immature Gran % (Auto) 0.3 0.6 (0-5) % Neut % (Auto) 73.3 75.7 (50-80) % Lymph % (Auto) 11.7 11.0 (10-50) % [place] % (Auto) 9.3 6.8 (5-15) % Eos % (Auto) 4.8 5.1 (0-8) % Baso % (Auto) 0.6 0.8 (0-1) % Immature Gran # (Auto) 0.01 0.02 10*3/UL Neut # (Auto) 2.43 2.67 10*3/UL Lymph # (Auto) 0.39 0.39 10*3/uL [place] # (Auto) 0.31 0.24 L (0.3-0.8) 10*3/UL Eos # (Auto) 0.16 0.18 10*3/UL Baso # (Auto) 0.02 0.03 10*3/UL WBC Morphology Comment Normal morphology Normal morphology (NORM) Plt Morphology Comment Normal morphology Normal morphology (NORM) RBC Morph Comment Normal morphology Normal morphology (NORM) VBG pH (7.32-7.42) VBG pCO2 (45-55) mmHg VBG HCO3 (22-26) mmol/L VBG Base Excess (-2-2) MMOL/L Sodium 138 137 (135-145) meq/L Potassium 3.9 3.8 (3.8-5.2) meq/L Chloride 107 108 (98-112) meq/L Carbon Dioxide 24 23 (23-33) meq/L Anion Gap 7 6 (5-20) BUN 13 8 (7-22) mg/dL Creatinine 0.7 0.7 (0.70-1.50) mg/dL Estimated GFR (>60 ml/min/1.73m(2)) BUN/Creatinine Ratio 18.57 11.42 (6-20) Glucose 87 86 (78-110) mg/dL Calculated Osmolality 284.0 280.0 (267-292) mOsm/kg Lactic Acid (0.70-2.10) MMOL/L Calcium 8.2 L 7.8 L (8.7-10.7) mg/dL Magnesium (1.6-2.4) mg/dL Total Bilirubin 0.6 (0.3-1.2) mg/dL AST 26 (21-57) IU/L ALT 38 (21-72) IU/L Alkaline Phosphatase 129 H (38-126) IU/L Total Creatine Kinase (55-170) IU/L Troponin I (< 0.040) ng/mL C-Reactive Protein (0.0-0.9) mg/dL Total Protein 5.4 L (6.1-8.0) g/dL Albumin 2.7 L (3.5-4.8) g/dL Globulin 2.7 (2.50-4.10) g/dL Albumin/Globulin Ratio 1.00 L (1.3-2.0) mg/g Vitamin B12 (239-931) pg/mL Serum Folate (2.76-20.0) NG/ML Ur Collection Type Urine Color Urine Clarity (CLEAR) Urine pH (5.0-8.5) Ur Specific [place] (1.005-1.030) Urine Protein (NEG) mg/dl Urine Glucose (UA) (NEG) mg/dL Urine Ketones (NEG) Urine Occult Blood (NEG) Urine Nitrate (NEG) Urine Bilirubin (NEG) Urine Urobilinogen (0.2) EU/dL Ur Leukocyte Esterase (NEG) Urine RBC (NONE) /hpf Urine WBC (NONE) Ur Squamous Epith Cells (NONE) Ur Renal Epithelial Cell (NONE) Urine Crystals Urine Bacteria (NONE) Urine Casts (NONE) Urine Mucus (NONE) Urine Trichomonas (NONE) Urine Yeast (NONE) Ur Culture Indicated? Patient Problems - Patient Problem List (1) Aspiration pneumonia Current Visit: Yes Status: Acute Qualifiers: Aspiration pneumonia type: due to regurgitated food Laterality: right Lung location: middle lobe of lung Qualified Description: Aspiration pneumonia of right middle lobe due to regurgitated food Qualifier Code(s) : (J69.0) Pneumonitis due to inhalation of food and vomit (2) Seizure-like activity Current Visit: Yes Status: Acute (3) Urinary retention due to benign prostatic hyperplasia Current Visit: Yes Status: Chronic (4) Indwelling catheter present on admission Current Visit: Yes Status: Acute (5) BPH (benign prostatic hyperplasia) Current Visit: Yes Status: Chronic Qualifiers: Prostatic enlargement morphology: unspecified morphology Lower urinary tract symptom presence: symptoms present Qualified Description: Benign prostatic hyperplasia with lower urinary tract symptoms, unspecified morphology Qualifier Code(s): (N40.1) Benign prostatic hyperplasia with lower urinary tract symptoms (6) Coronary artery disease Current Visit: Yes Status: Chronic Qualifiers: Coronary Disease-Associated Artery/Lesion type: bypass graft [place] vs. transplanted heart: [place] heart Associated angina: without angina Qualified Description: Coronary artery disease involving coronary bypass graft of [place] heart without angina pectoris Qualifier Code(s): (I25.810) Atherosclerosis of coronary artery bypass graft(s) without angina pectoris (7) Dementia Current Visit: Yes Status: Acute Qualifiers: Dementia type: Alzheimer's disease Alzheimer's disease onset: late- onset Dementia behavioral disturbance: with behavioral disturbance Qualified Description: Late onset Alzheimer's disease with behavioral disturbance Qualifier Code(s): (G30.1) Alzheimer's disease with late onset , (F02.81) Dementia in other diseases classified elsewhere with behavioral disturbance (8) Hyponatremia syndrome Current Visit: Yes Status: Chronic (9) Hypothyroidism Current Visit: Yes Status: Chronic Qualifiers: Hypothyroidism type: acquired Qualified Description: Acquired hypothyroidism Qualifier Code(s): (E03.9) Hypothyroidism, unspecified (10) Ventricular bigeminy Current Visit: Yes Status: Chronic (11) Altered mental status Current Visit: Yes Status: Acute Qualifiers: Altered mental status type: unspecified Qualified Description: Altered mental status, unspecified altered mental status type Qualifier Code(s): ( R41.82) Altered mental status, unspecified
--- NOTE | 2016-11-10 17:35 | PT.PROG ---
Progress Note Progress Note: S. Patient stated that he would go for a walk this afternoon. O. Patient ambulated 300 feet around the nurses station then was left in bed with alarm and call light. A. Patient tolerated ambulation fair, he continues to be very impulsive and requires max verbal cues for directions and to slow down. Patient would continue to benefit from skilled care at this time. P. continue POC until Discharge.
[2016-11-10] MEDS: MAGNESIUM 400 MG/5 ML - 30 ML (MILK OF MAGNESIA) PO PRN (20:29)
[2016-11-11] MEDS: LEVOTHYROXINE 75 MCG TABLET PO SCH (05:33)
[2016-11-11 07:01] VITALS: RESP 18; TEMP 97.5
[2016-11-11] MEDS: CLOPIDOGREL 75 MG TABLET PO SCH (09:07)
[2016-11-11] MEDS: QUEtiapine Tab 25 MG TAB PO SCH (09:08)
[2016-11-11] MEDS: ASPIRIN EC 81 MG TABLET PO SCH (09:08)
[2016-11-11] MEDS: ALPRAZolam Tab 1 MG TABLET PO SCH (09:08)
[2016-11-11] MEDS: LevETIRAcetam Tab 500 MG TABLET PO SCH (09:08)
[2016-11-12] MEDS ORDERED: LEVOTHYROXINE 75 MCG TABLET PO SCH (05:30)
== END 2016-11-11 12:22 | disposition home or self-care (01) | DRG 178 ==
LOC: ER 20:34 → MED/SURG 22:33
PROVIDERS: ADMIT Family Medicine; ATTEND Family Medicine
DX: E86.0 Dehydration (principal); F44.89 Other dissociative and conversion disorders; J69.0 Pneumonitis due to inhalation of food and vomit; I25.810 Atherosclerosis of coronary artery bypass graft(s) without angina pectoris; E22.2 Syndrome of inappropriate secretion of antidiuretic hormone; R56.9 Unspecified convulsions; R33.9 Retention of urine, unspecified; N40.0 Benign prostatic hyperplasia without lower urinary tract symptoms; E03.9 Hypothyroidism, unspecified; R00.8 Other abnormalities of heart beat; M25.512 Pain in left shoulder; F41.9 Anxiety disorder, unspecified; G30.9 Alzheimer's disease, unspecified; F02.80 Dementia in other diseases classified elsewhere, unspecified severity, without behavioral disturbance, psychotic disturbance, mood disturbance, and anxiety
CPT/HCPCS: 36415; 70450; 71010; 71260; 73020; 80048; 80053; 81001; 81003; 82550; 82607; 82746; 82803; 83605; 83735; 84484; 85025; 85027; 86140; 87040; 87088; 93005; 93010; 94761; 96361; 96374; 97110; 97161; 97165; 97530; 97750; 99284; J0131; J0696; J1630; J1953; J2060; J2405; J3475; J3490; J7030; J7050

== ENCOUNTER 2016-11-13 07:35 | Emergency (ER) | payer OTHER, MEDICARE ==
[2016-11-13 07:58] VITALS: RESP 18; TEMP 97.4
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
== END 2016-11-13 08:40 | disposition home or self-care (01) ==
LOC: ER 07:35
DX: T83.098A Other mechanical complication of other urinary catheter, initial encounter (principal); N40.0 Benign prostatic hyperplasia without lower urinary tract symptoms; Z86.718 Personal history of other venous thrombosis and embolism
CPT/HCPCS: 99282

== ENCOUNTER → 2016-11-18 | Outpatient (CLI) | payer OTHER, MEDICARE | LOC: MMPC 09:00 | PROVIDERS: ATTEND Family Medicine | DX: N40.0 Benign prostatic hyperplasia without lower urinary tract symptoms (principal); F41.1 Generalized anxiety disorder | CPT/HCPCS: 99213; G0463 ==

== ENCOUNTER → 2016-12-14 | Outpatient (CLI) | payer OTHER, MEDICARE ==
[2016-12-14 14:20] LABS: BILIRUBIN,URINE NEGATIVE (NEG); COLOR,URINE YELLOW; GLUCOSE, URINE (UA) NEGATIVE (NEG); NITRATE,URINE NEGATIVE (NEG); OCCULT BLOOD,URINE SMALL (NEG); PH,URINE 8.5 (5.0-8.5); PROTEIN,URINE 30 mg/dl (NEG); UROBILINOGEN,URINE 0.2 mg/dL (0.2)
[2016-12-14 14:21] LABS: CLARITY,URINE CLEAR (CLEAR)
[2016-12-14 14:23] LABS: BACTERIA,URINE FEW; SQUAMOUS EPITHELIAL CELL,UR RARE; URINE SAMPLE TYPE CLEAN CATCH URINE
== END ==
LOC: MOB LAB 11:01
PROVIDERS: ATTEND Family Medicine
DX: R30.0 Dysuria (principal); R82.99 Other abnormal findings in urine
CPT/HCPCS: 81001; 87077; 87088; 87186

== ENCOUNTER → 2017-01-18 | Outpatient (CLI) | payer OTHER, MEDICARE ==
[2017-01-18 07:55] LABS: BASOPHILS # (AUTO) 0.04 10*3/UL; BASOPHILS % (AUTO) 0.8 % (0-1); EOSINOPHILS # (AUTO) 0.18 10*3/UL; EOSINOPHILS % (AUTO) 3.7 % (0-8); HEMATOCRIT 39.3 % (42.0-52.0); HEMOGLOBIN 13.2 g/dL (14.0-18.0); LYMPHOCYTES # (AUTO) 0.64 10*3/uL; MEAN CORPUSCULAR HEMOGLOBIN 28.7 PG (27-31); MEAN CORPUSCULAR HGB CONC 33.6 g/dL (33-37); MEAN CORPUSCULAR VOLUME 85.4 FL (80-90); MEAN PLATELET VOLUME 9.5 FL (7.4-12.2); MONOCYTES # (AUTO) 0.44 10*3/UL (0.3-0.8); MONOCYTES % (AUTO) 9.1 % (5-15); NEUTROPHILS # (AUTO) 3.53 10*3/UL
[2017-01-18 08:05] LABS: CALCIUM 8.6 mg/dL (8.7-10.7)
[2017-01-18 08:11] LABS: PLATELET MORPHOLOGY COMMENT NORMAL MORPHOLOGY (NORM); RBC MORPHOLOGY COMMENT NORMAL MORPHOLOGY (NORM); WBC MORPHOLOGY COMMENT NORMAL MORPHOLOGY (NORM)
== END ==
LOC: LAB 07:38
PROVIDERS: ATTEND Urology
DX: R33.9 Retention of urine, unspecified (principal)
CPT/HCPCS: 36415; 80048; 85025; 87088

== ENCOUNTER 2018-02-13 20:35 | Inpatient (IN) ==
[2018-02-13] MEDS ORDERED: LIDOCAINE HCL 2 % 10 ML JELLY URO-JECT TOPICAL PRN (20:46)
[2018-02-13] MEDS ORDERED: ONDANSETRON 4 MG/2 ML VIAL IVP ONE (20:46)
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
[2018-02-13] MEDS ORDERED: FUROSEMIDE 10 MG/1 ML - 4 ML IVP ONE (20:58)
[2018-02-13] MEDS ORDERED: Sodium Chloride 0.9% 1,000 ML PRIMARY IV ONE (20:58)
[2018-02-13 21:16] LABS: BASOPHILS # (AUTO) 0.04 10*3/UL; BASOPHILS % (AUTO) 0.9 % (0-1); EOSINOPHILS # (AUTO) 0.09 10*3/UL; EOSINOPHILS % (AUTO) 1.9 % (0-8); Hematocrit [HCT] 36.7 % (42.0-52.0); LYMPHOCYTES # (AUTO) 0.91 10*3/uL; MEAN CORPUSCULAR HEMOGLOBIN 29.9 PG (27-31); MEAN CORPUSCULAR HGB CONC 35.4 g/dL (33-37); MEAN CORPUSCULAR VOLUME 84.4 FL (80-90); MEAN PLATELET VOLUME 9.5 FL (7.4-12.2); MONOCYTES # (AUTO) 0.49 10*3/UL (0.3-0.8); MONOCYTES % (AUTO) 10.5 % (5-15); NEUTROPHILS # (AUTO) 3.13 10*3/UL; NEUTROPHILS % (AUTO) 67.2 % (50-80); RED BLOOD COUNT 4.35 10^6/uL (4.70-6.10)
--- NOTE | 2018-02-13 21:16 | EKG ---
[address] [address] Measurements Intervals [place] Rate: 52 P: VA: 0 QRS: 17 QRSD: 110 T: 100 QT: 476 QTc: 456 Interpretive Statements ATRIAL FIBRILLATION WITH SLOW VENTRICULAR RESPONSE vs Junctional Bradycardia NONSPECIFIC ST & T-WAVE ABNORMALITY Compared to ECG 11/07/2016 10:40:04 T-wave abnormality now present Ventricular premature complex(es) no longer present Electronically Signed On 02-14-18 09:00:47 MDT by Dom John MD [email or web address]
[2018-02-13 21:19] LABS: VENOUS PH 7.32 (7.32-7.42)
[2018-02-13 21:20] LABS: PLATELET MORPHOLOGY COMMENT NORMAL MORPHOLOGY (NORM); RBC MORPHOLOGY COMMENT NORMAL MORPHOLOGY (NORM); WBC MORPHOLOGY COMMENT NORMAL MORPHOLOGY (NORM)
[2018-02-13 21:28] LABS: BLOOD UREA NITROGEN 4 mg/dL (7-22); SERUM ALBUMIN 3.9 g/dL (3.5-4.8)
[2018-02-13 21:31] LABS: BILIRUBIN,URINE NEGATIVE (NEG); CLARITY,URINE CLEAR (CLEAR); COLOR,URINE YELLOW (Y); GLUCOSE, URINE (UA) NEGATIVE (NEG); OCCULT BLOOD,URINE NEGATIVE (NEG); PH,URINE 7.5 (5.0-8.5); PROTEIN,URINE NEGATIVE (NEG); UROBILINOGEN,URINE 0.2 EU/dL (0.2)
[2018-02-13 21:40] LABS: URINE SAMPLE TYPE CATH SPECIMEN; URINE SPECIFIC GRAVITY - MAN 1.003
[2018-02-13 21:42] LABS: AMPHETAMINE SCREEN NEGATIVE (NEG); CANNABINOID SCREEN,URINE NEGATIVE (NEG); COCAINE SCREEN NEGATIVE (NEG); METHADONE URINE SCREEN NEGATIVE (NEG); METHAMPHETAMINES SCREEN,URINE NEGATIVE (NEG); OPIATE SCREEN,URINE NEGATIVE (NEG)
[2018-02-13] MEDS ORDERED: QUEtiapine Tab 25 MG TAB PO SCH (22:56)
[2018-02-13] MEDS ORDERED: CALCIUM CARBONATE 500 MG (TUMS) CHEWABLE TABLET PO PRN (22:56)
[2018-02-13] MEDS ORDERED: DOCUSATE 100 MG CAPSULE PO PRN (22:56)
[2018-02-13] MEDS ORDERED: ONDANSETRON 4 MG/2 ML VIAL IVP PRN (22:56)
[2018-02-13] MEDS ORDERED: ALPRAZolam Tab 0.25 MG TABLET PO PRN (22:56)
[2018-02-13] MEDS ORDERED: NITROGLYCERIN 0.4 MG SL TAB (BOTTLE OF 3) SL PRN (22:56)
[2018-02-13] MEDS ORDERED: LIDOCAINE W/ SODIUM BICARB 0.5 ML SYR SUBD PRN (22:56)
[2018-02-13] MEDS ORDERED: ACETAMINOPHEN 325 MG TABLET PO PRN (22:56)
--- NOTE | 2018-02-13 23:21 | DI ---
EXAM: XR Chest, 1 View CLINICAL HISTORY: confusion TECHNIQUE: Frontal view of the chest. COMPARISON: CT 11/07/16 FINDINGS: Lungs: Streaky opacity in the left lower lobe could represent discoid atelectasis or scarring. Minimal airspace opacity in the right lower lobe is nonspecific. Pleural space: No pleural effusion or pneumothorax. Heart: Cardiomegaly. Median sternotomy wires are intact. Tortuous aorta with atherosclerosis. Mediastinum: Unremarkable. Bones/joints: Multilevel degenerative changes of the spine and bilateral shoulders. IMPRESSION: Streaky opacity in the left lower lobe could represent discoid atelectasis or scarring. Minimal airspace opacity in the right lower lobe is nonspecific. Pneumonia is not excluded. Recommend clinical correlation.
--- NOTE | 2018-02-13 23:21 | PDOC ---
HPI - History of Present Illness Date of Service: 02/13/18 Time of Service: 23:16 Chief Complaint: Altered mental status History of Present Illness: This is an 82-year-old male who has had a prior history of recurrent urinary infections with a chronic indwelling Mott catheter due to an enlarged prostate. He was last admitted here in October 2016. He has known dementia and has had issues of delirium in the past. He apparently was in a good state of health until today when he had a fall and has had increased confusion. His is concerned about his mental status and his weakness and her inability to lift them up and called EMS. He was brought in for evaluation and found to have a low-sodium, and was also in a lethargic state. He was arousable to verbal stimuli, but could not provide any history due to his dementia and worsening mental state. He's not had any fevers reportedly, but no one is available to do collaborative history at this time. Unfortunately in the history of present illness is very limited due to the patient's underlying dementia and worsened mental status. He did have urinary retention in the emergency room and a Mott catheter was placed and they got almost a liter of urine immediately. He was also noted to be bradycardic (atrial fibrillation with a bradycardic response). It is not known if he took extra doses of his medications. He denies pain to me on examination. Past Medical History Medical History: 1. Atrial fibrillation, rate controlled and on aspirin for stroke prevention. 2. Depression. 3. GERD. 4. History of DVTs years ago. 5. History of orthostatic hypertension. 6. History of gout. 7. Hypothyroidism. 8. BPH for which he had surgery. 9. Diagnosed with DVT on . 10. Coronary artery disease with CABG June 2015, stent in December 2015, off of Plavix. 11. BPH with history of recurrent urinary catheterizations. Not on any prostate medications at this time. In urinary retention tonight. 12. Dementia. 13. Left cerebral hemispheric atrophy, possibly congenital Surgical History: 1. History of for surgery on his shoulder. 2. History of prostate surgery. 3. Left knee replacement. 4. Left hip replacement. 5. Cholecystectomy. 6. Status post CABG June 2015. 7. Stents 2, once in August and then once in December 2015. Pertinent Family History: On my review of prior history and physicals, positive for heart disease Past Social History: Does not smoke or drink. for 20 years with his current . Has 6 children from prior marriages. 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 Lives with his here in [place], this was all from prior admissions and reviewed. Could not provide any details tonight. Tobacco Use: Never Smoker In the Past 12 Months, Have Used or Abuse Any of the Following Substance: None Alcohol Use: None Medication / Allergies Home Medications: Home Medications 3 Medication Instructions Recorded Confirmed Type Aspirin [Aspir 81] 81 mg PO DAILY tab 05/22/15 02/13/18 History nitroglycerin 0.4 mg sublingual 0.4 mg SL Q5-15M PRN 04/29/17 02/13/18 History tablet alprazolam 0.5 mg tablet 0.5 mg PO QID PRN #120 tab 09/24/17 02/13/18 Rx levothyroxine 150 mcg tablet 150 mcg PO QDAY #30 tab 11/01/17 02/13/18 Rx quetiapine 25 mg tablet 75 mg PO QHS #270 tab 11/25/17 02/13/18 Rx citalopram 10 mg tablet 10 mg PO BID #90 tab 12/13/17 02/13/18 Rx esomeprazole magnesium 20 mg 20 mg PO BID #90 cap 12/13/17 02/13/18 Rx capsule,delayed release levetiracetam 1,000 mg tablet 1,000 mg PO BID #180 tab 12/13/17 02/13/18 Rx quetiapine 50 mg tablet 50 mg PO QDAY #90 tab 01/03/18 02/13/18 Rx Allergies/Adverse Reactions: Allergies 3 Allergy/AdvReac Type Severity Reaction Status Date / Time lisinopril Allergy Severe Anaphylaxis Verified 02/13/18 21:51 ciprofloxacin [From Cipro] Allergy Intermediate RASH Verified 02/13/18 21:51 Penicillins Allergy Intermediate RASH Verified 02/13/18 21:51 rivaroxaban [From Xarelto] Allergy Intermediate multiple Verified 02/13/18 21:51 problems tomato Allergy Intermediate HIVES Verified 02/13/18 21:51 docosahexanoic acid Allergy Mild ITCHING Verified 02/13/18 21:51 [From [place]-3 Fish Oil] metoprolol AdvReac Severe SEVERE Verified 02/13/18 21:51 HYPOTENSION fluoxetine HCl [From Prozac] AdvReac Intermediate VOMITING Verified 02/13/18 21: 51 sulfamethoxazole AdvReac Intermediate burning in Verified 02/13/18 21:51 [From Bactrim] stomach and rectum went away stopping trimethoprim [From Bactrim] AdvReac Intermediate burning in Verified 02/13/18 21 :51 stomach and rectum went away stopping Review of Systems - Review of Systems ROS Unobtainable: Due to Mental Status (I cannot obtain a review of systems due to the patient's dementia and altered mental status.) Exam - Vitals Vital Signs: Vital Signs Temperature 96.4 F Temperature Source Temporal Artery Scan Pulse Rate [Pulse Oximeter] 48 Respiratory Rate 16 Blood Pressure [Right Arm] 158/73 Pulse Ox 95 Oxygen Delivery Method Nasal Cannula Height 6 ft Weight 188 lb 1.6 oz - General General Appearance: No Acute Distress, Average Body Hiatus Additional General Exam Details: Response to verbal stimuli, limited response. - Head Head Exam: Normal Inspection, Normocephalic, Atraumatic - Eye Eye Exam: POSITIVE: No Scleral Icterus Eye: Abnormal Pupil: Bilateral Eye (dilated bilaterally, responsive) - ENT ENT Exam: POSITIVE: Mucous Membranes Dry - Neck Neck Exam: Normal Inspection, No Tenderness, No Lymphadenopathy, No Thyromegaly , JVP is not Raised - Respiratory Respiratory Exam: POSITIVE: Clear to Auscultation - Bilaterally, Breathing Non Labored - Cardiovascular Cardiovascular Exam: POSITIVE: No Murmur, No Clicks, No Gallops, No Rubs, Irregular Rhythm, Bradycardia, No JVD - GI/Abdominal GI/Abdominal Exam: POSITIVE: Normal Bowel Sounds, Non Tender, Non Distended, Soft - Rectal Rectal Exam: POSITIVE: Deferred - External Exam: POSITIVE: Deferred Exam: POSITIVE: Mott Catheter in Place (Urine is very clear.) - Extremities Extremities Exam: POSITIVE: No Clubbing Present, No Cyanosis Present, Pedal Edema, +1 Edema (Trace to 1+ edema bilaterally) - Neurological Neurological Exam: POSITIVE: No Facial Droop, Speech Intact / Clear, Moves All Extremities Equally, Altered Additional Neurological Exam Details: Somewhat somnolent, but arousable with verbal stimuli. Cannot follow commands probably because of his dementia but worsened confusion and setting of dementia. He does answer me that he is not in pain. - Integumentary Integumentary Exam: POSITIVE: Abrasion (Lower back) - Central Line Examination Central Line Present on Admission: No Results - Labs CBC and BMP: 02/13/18 21:05 02/13/18 21:05 Additional Lab Results: Laboratory Results 02/13/18 02/13/18 02/13/18 Range/Units 21:02 21:05 21:05 WBC 4.66 L (4.8-10.8) 10^3/uL RBC 4.35 L (4.70-6.10) 10^6/uL Hgb 13.0 L (14.0-18.0) g/dL Hct 36.7 L (42.0-52.0) % MCV 84.4 (80-90) FL MCH 29.9 (27-31) PG MCHC 35.4 (33-37) g/dL RDW Std Deviation 40.5 (39-50) fL RDW Coeff of Dio 13.4 (11.5-14.5) % Plt Count 140 (140-350) 10*3/uL MPV 9.5 (7.4-12.2) FL Immature Gran % (Auto) 0 (0-5) % Neut % (Auto) 67.2 (50-80) % Lymph % (Auto) 19.5 (10-50) % Pratt % (Auto) 10.5 (5-15) % Eos % (Auto) 1.9 (0-8) % Baso % (Auto) 0.9 (0-1) % Immature Gran # (Auto) 0 10*3/UL Neut # (Auto) 3.13 10*3/UL Lymph # (Auto) 0.91 10*3/uL Pratt # (Auto) 0.49 (0.3-0.8) 10*3/UL Eos # (Auto) 0.09 10*3/UL Baso # (Auto) 0.04 10*3/UL WBC Morphology Comment Normal morphology (NORM) Plt Morphology Comment Normal morphology (NORM) RBC Morph Comment Normal morphology (NORM) PT (9.7-11.4) secs INR (0.00-5.90) N/A D-Dimer 1.44 H (0.00-0.59) mg/L VBG pH 7.32 (7.32-7.42) VBG pCO2 51 (45-55) mmHg VBG HCO3 26 (22-26) mmol/L VBG Base Excess 0 (-2-2) MMOL/L Sodium (135-145) meq/L Potassium (3.8-5.2) meq/L Chloride (98-112) meq/L Carbon Dioxide (23-33) meq/L Anion Gap (5-20) BUN (7-22) mg/dL Creatinine (0.70-1.50) mg/dL BUN/Creatinine Ratio (6-20) Glucose (78-110) mg/dL Calculated Osmolality (267-292) mOsm/kg Lactic Acid (0.70-2.10) MMOL/L Calcium (8.7-10.7) mg/dL Magnesium (1.6-2.4) mg/dL Total Bilirubin (0.3-1.2) mg/dL AST (21-57) IU/L ALT (21-72) IU/L Alkaline Phosphatase (38-126) IU/L CK-MB (CK-2) (0.00-5.00) NG/ML Troponin I Handheld (< 0.040) ng/mL C-Reactive Protein (0.0-0.9) mg/dL NT-Pro-B Natriuret Pep (0-450) PG/ML Total Protein (6.1-8.0) g/dL Albumin (3.5-4.8) g/dL Globulin (2.50-4.10) g/dL Albumin/Globulin Ratio (1.3-2.0) mg/g TSH (0.2700-4.2000) uIU/mL Free T4 (0.93-1.71) ng/dL Ur Collection Type Urine Color (Y) Urine Clarity (CLEAR) Urine pH (5.0-8.5) Ur Specific [place] (1.005-1.030) U Specif Grav (Refrac) Urine Protein (NEG) mg/dl Urine Glucose (UA) (NEG) mg/dL Urine Ketones (NEG) Urine Occult Blood (NEG) Urine Nitrate (NEG) Urine Bilirubin (NEG) Urine Urobilinogen (0.2) EU/dL Ur Leukocyte Esterase (NEG) Ur Culture Indicated? Urine Opiates Screen (NEG) Ur Buprenorphine (NEG) Ur Oxycodone Screen (NEG) Urine Methadone Screen (NEG) Ur Propoxyphene Screen (NEG) Barbiturate Screen (NEG) U Tricyclic Antidepress (NEG) Phencyclidine Screen (NEG) Amphetamines Screen (NEG) U Methamphetamines Scrn (NEG) Benzodiazepines Screen (NEG) Cocaine Screen (NEG) U Marijuana (THC) Screen (NEG) Serum Alcohol (0-10) mg/dL 02/13/18 02/13/18 02/13/18 Range/Units 21:05 21:05 21:05 WBC (4.8-10.8) 10^3/uL RBC (4.70-6.10) 10^6/uL Hgb (14.0-18.0) g/dL Hct (42.0-52.0) % MCV (80-90) FL MCH (27-31) PG MCHC (33-37) g/dL RDW Std Deviation (39-50) fL RDW Coeff of Dio (11.5-14.5) % Plt Count (140-350) 10*3/uL MPV (7.4-12.2) FL Immature Gran % (Auto) (0-5) % Neut % (Auto) (50-80) % Lymph % (Auto) (10-50) % Pratt % (Auto) (5-15) % Eos % (Auto) (0-8) % Baso % (Auto) (0-1) % Immature Gran # (Auto) 10*3/UL Neut # (Auto) 10*3/UL Lymph # (Auto) 10*3/uL [place] # (Auto) (0.3-0.8) 10*3/UL Eos # (Auto) 10*3/UL Baso # (Auto) 10*3/UL WBC Morphology Comment (NORM) Plt Morphology Comment (NORM) RBC Morph Comment (NORM) PT (9.7-11.4) secs INR (0.00-5.90) N/A D-Dimer (0.00-0.59) mg/L VBG pH (7.32-7.42) VBG pCO2 (45-55) mmHg VBG HCO3 (22-26) mmol/L VBG Base Excess (-2-2) MMOL/L Sodium 125 L (135-145) meq/L Potassium 4.0 (3.8-5.2) meq/L Chloride 92 L (98-112) meq/L Carbon Dioxide 25 (23-33) meq/L Anion Gap 8 (5-20) BUN 4 L (7-22) mg/dL Creatinine 0.8 (0.70-1.50) mg/dL BUN/Creatinine Ratio 5.00 L (6-20) Glucose 87 (78-110) mg/dL Calculated Osmolality 255.0 L (267-292) mOsm/kg Lactic Acid 1.0 (0.70-2.10) MMOL/L Calcium 8.8 (8.7-10.7) mg/dL Magnesium 1.9 (1.6-2.4) mg/dL Total Bilirubin 0.7 (0.3-1.2) mg/dL AST 31 (21-57) IU/L ALT 32 (21-72) IU/L Alkaline Phosphatase 151 H (38-126) IU/L CK-MB (CK-2) 10.2 H (0.00-5.00) NG/ML Troponin I Handheld (< 0.040) ng/mL C-Reactive Protein 0.8 (0.0-0.9) mg/dL NT-Pro-B Natriuret Pep 727 H (0-450) PG/ML Total Protein 6.7 (6.1-8.0) g/dL Albumin 3.9 (3.5-4.8) g/dL Globulin 2.8 (2.50-4.10) g/dL Albumin/Globulin Ratio 1.30 (1.3-2.0) mg/g TSH 1.73 (0.2700-4.2000) uIU/mL Free T4 1.48 (0.93-1.71) ng/dL Ur Collection Type Urine Color (Y) Urine Clarity (CLEAR) Urine pH (5.0-8.5) Ur Specific [place] (1.005-1.030) U Specif Grav (Refrac) Urine Protein (NEG) mg/dl Urine Glucose (UA) (NEG) mg/dL Urine Ketones (NEG) Urine Occult Blood (NEG) Urine Nitrate (NEG) Urine Bilirubin (NEG) Urine Urobilinogen (0.2) EU/dL Ur Leukocyte Esterase (NEG) Ur Culture Indicated? Urine Opiates Screen (NEG) Ur Buprenorphine (NEG) Ur Oxycodone Screen (NEG) Urine Methadone Screen (NEG) Ur Propoxyphene Screen (NEG) Barbiturate Screen (NEG) U Tricyclic Antidepress (NEG) Phencyclidine Screen (NEG) Amphetamines Screen (NEG) U Methamphetamines Scrn (NEG) Benzodiazepines Screen (NEG) Cocaine Screen (NEG) U Marijuana (THC) Screen (NEG) Serum Alcohol < 10 (0-10) mg/dL 02/13/18 02/13/18 02/13/18 Range/Units 21:05 21:05 21:40 WBC (4.8-10.8) 10^3/uL RBC (4.70-6.10) 10^6/uL Hgb (14.0-18.0) g/dL Hct (42.0-52.0) % MCV (80-90) FL MCH (27-31) PG MCHC (33-37) g/dL RDW Std Deviation (39-50) fL RDW Coeff of [place]io (11.5-14.5) % Plt Count (140-350) 10*3/uL MPV (7.4-12.2) FL Immature Gran % (Auto) (0-5) % Neut % (Auto) (50-80) % Lymph % (Auto) (10-50) % [place] % (Auto) (5-15) % Eos % (Auto) (0-8) % Baso % (Auto) (0-1) % Immature Gran # (Auto) 10*3/UL Neut # (Auto) 10*3/UL Lymph # (Auto) 10*3/uL [place] # (Auto) (0.3-0.8) 10*3/UL Eos # (Auto) 10*3/UL Baso # (Auto) 10*3/UL WBC Morphology Comment (NORM) Plt Morphology Comment (NORM) RBC Morph Comment (NORM) PT 12.2 H (9.7-11.4) secs INR 1.15 (0.00-5.90) N/A D-Dimer (0.00-0.59) mg/L VBG pH (7.32-7.42) VBG pCO2 (45-55) mmHg VBG HCO3 (22-26) mmol/L VBG Base Excess (-2-2) MMOL/L Sodium (135-145) meq/L Potassium (3.8-5.2) meq/L Chloride (98-112) meq/L Carbon Dioxide (23-33) meq/L Anion Gap (5-20) BUN (7-22) mg/dL Creatinine (0.70-1.50) mg/dL BUN/Creatinine Ratio (6-20) Glucose (78-110) mg/dL Calculated Osmolality (267-292) mOsm/kg Lactic Acid (0.70-2.10) MMOL/L Calcium (8.7-10.7) mg/dL Magnesium (1.6-2.4) mg/dL Total Bilirubin (0.3-1.2) mg/dL AST (21-57) IU/L ALT (21-72) IU/L Alkaline Phosphatase (38-126) IU/L CK-MB (CK-2) (0.00-5.00) NG/ML Troponin I Handheld 0.000 (< 0.040) ng/mL C-Reactive Protein (0.0-0.9) mg/dL NT-Pro-B Natriuret Pep (0-450) PG/ML Total Protein (6.1-8.0) g/dL Albumin (3.5-4.8) g/dL Globulin (2.50-4.10) g/dL Albumin/Globulin Ratio (1.3-2.0) mg/g TSH (0.2700-4.2000) uIU/mL Free T4 (0.93-1.71) ng/dL Ur Collection Type Cath specimen Urine Color Yellow (Y) Urine Clarity Clear (CLEAR) Urine pH 7.5 (5.0-8.5) Ur Specific [place] 1.010 (1.005-1.030) U Specif Grav (Refrac) 1.003 Urine Protein Negative (NEG) mg/dl Urine Glucose (UA) Negative (NEG) mg/dL Urine Ketones Negative (NEG) Urine Occult Blood Negative (NEG) Urine Nitrate Negative (NEG) Urine Bilirubin Negative (NEG) Urine Urobilinogen 0.2 (0.2) EU/dL Ur Leukocyte Esterase Negative (NEG) Ur Culture Indicated? Culture not set Urine Opiates Screen Negative (NEG) Ur Buprenorphine Negative (NEG) Ur Oxycodone Screen Negative (NEG) Urine Methadone Screen Negative (NEG) Ur Propoxyphene Screen Negative (NEG) Barbiturate Screen Negative (NEG) U Tricyclic Antidepress Negative (NEG) Phencyclidine Screen Negative (NEG) Amphetamines Screen Negative (NEG) U Methamphetamines Scrn Negative (NEG) Benzodiazepines Screen Positive H (NEG) Cocaine Screen Negative (NEG) U Marijuana (THC) Screen Negative (NEG) Serum Alcohol (0-10) mg/dL - EKG Data -: EKG Interpreted by Me Rate: Bradycardia - EKG Data EKG Interpretation: Other (Atrial fibrillation with bradycardic response.) - Imaging Status: Image Reviewed by Me (Chest x-ray appears negative on my view. CT scan appeared negative for pneumonia on my view, awaiting official report in terms of pulmonary emboli presence, but steady may be compromised this patient could not comply with instructions in terms of breathing for the test. CT scan of the head does not show any evidence of acute blood that I can see. 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) Current Visit: Yes Status: Acute Code(s): E22.2 - Syndrome of inappropriate secretion of antidiuretic hormone (4) Hyponatremia Current Visit: Yes Status: Acute Code(s): E87.1 - Hypo-osmolality and hyponatremia (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 Status: Chronic Code(s): G30.9 - Alzheimer's disease, unspecified; F02.80 - Dementia in other diseases classified elsewhere without behavioral disturbance (6) Bradycardia Current Visit: Yes Status: Acute Code(s): R00.1 - Bradycardia, unspecified (7) BPH (benign prostatic hyperplasia) Current Visit: Yes Status: Acute Code(s): N40.0 - Benign prostatic hyperplasia without lower urinary tract symptoms Qualifiers: Lower urinary tract symptom presence: symptoms present Qualified Code(s): N40.1 - Benign prostatic hyperplasia with lower urinary tract symptoms (8) Coronary artery disease Current Visit: Yes Status: Chronic Code(s): I25.10 - Atherosclerotic heart disease of [place] coronary artery without angina pectoris Qualifiers: Coronary Disease-Associated Artery/Lesion type: bypass graft [place] vs. transplanted heart: [place] heart Associated angina: without angina Qualified Code(s): I25.810 - Atherosclerosis of coronary artery bypass graft(s) without angina pectoris - Assessment / Plan Additional Assessment/Plan Details: Patient could have possible congestive heart failure, but I think this is mostly consistent with SIADH in a patient with underlying dementia and possibly medication related presentation. He also appears to be mildly dry, and perhaps this could be related to dehydration as well. Given his history of dementia and confusion, I think the best thing to do at this point is to hold off on Seroquel and stop Celexa as well. I will send off some laboratories for urine sodium, urine creatinine, and osmolalities. TSH and free T4 normal. We'll also get cortisol level to make sure we were not dealing with adrenal insufficiency. Normal saline for now. Labs in a.m. I will continue the Xanax, as the patient has a history of Xanax withdrawal seizures. Continue the Keppra at current dose. Try to obtain more information from the patient's family when available as they are not here tonight to provide history. No evidence of infection so hold off on antibiotics. I think the altered mental status is probably related to the sodium in the setting of underlying dementia. Given that edema noted, the CK-MB, history of coronary artery disease with CABG and then subsequent stent placement, we'll go ahead and get an echocardiogram to assess left ventricular function and ejection fraction. Mott catheterization due to urinary retention and start Flomax. Complex, multifactorial issues, limited history, and hopefully some of the labs and history tomorrow with the family will help direct the hospital stay further.
--- NOTE | 2018-02-13 23:26 | DI ---
EXAM: CT Head Without Intravenous Contrast CLINICAL HISTORY: fall/confusion TECHNIQUE: Axial computed tomography images of the head/brain without intravenous contrast. COMPARISON: None. FINDINGS: Brain: No intraparenchymal hemorrhage or extra-axial fluid collection. Generalized atrophy. Low-density in the bilateral periventricular white matter is nonspecific but probably represents chronic small vessel ischemic disease. No acute infarct. No effacement of the sulci and cisterns. There is [id number] midline shift by approximately 5 mm. There is no discernible cause on the study. This may be related to oblique positioning. Ventricles: Unremarkable. Bones/joints: Unremarkable. Soft tissues: Unremarkable. Sinuses: Unremarkable. Mastoid air cells: Unremarkable. IMPRESSION: There is [id number] midline shift by approximately 5 mm. There is no discernible cause on the study. This may be related to oblique positioning. Generalized atrophy and probable chronic small vessel ischemic disease.
[2018-02-13] MEDS ORDERED: TAMSULOSIN 0.4 MG CAPSULE PO ONE (23:30)
--- NOTE | 2018-02-13 23:36 | DI ---
EXAM: CT Angiography Chest Without And With Intravenous Contrast, With Intra- Articular Contrast CLINICAL HISTORY: Shortness of breath TECHNIQUE: Axial computed tomographic angiography images of the chest without and with intravenous contrast, with intra-articular contrast using pulmonary embolism protocol. MIP reconstructed images were created and reviewed. COMPARISON: None. FINDINGS: Pulmonary arteries: No evidence of pulmonary emboli. Aorta: Moderate atherosclerosis of the aorta. No dissection or aneurysm. Lungs: Patchy groundglass and reticular opacities in the dependent portions of both lungs are nonspecific, probably representing atelectasis. Pleural space: Unremarkable. Heart: Mild cardiomegaly. Diffuse coronary artery calcifications. Status post CABG. Bones/joints: Multilevel degenerative changes of the spine. Soft tissues: Unremarkable. Lymph nodes: No enlarged or abnormal lymph nodes. IMPRESSION: No evidence of pulmonary emboli. Patchy groundglass and reticular opacities in the dependent portions of both lungs are nonspecific, probably representing atelectasis. Mild cardiomegaly.
[2018-02-14] MEDS: Sodium Chloride 0.9% 1,000 ML PRIMARY IV SCH ×3 (00:11→16:09)
[2018-02-14] MEDS: LEVOTHYROXINE 75 MCG TABLET PO SCH (04:36)
[2018-02-14 05:20] LABS: BLOOD UREA NITROGEN 4 mg/dL (7-22); BUN/CREATININE RATIO 5.71 (6-20)
[2018-02-14] MEDS: LevETIRAcetam Tab 500 MG TABLET PO SCH ×2 (08:25→20:14)
[2018-02-14] MEDS: Esomeprazole DR 20mg Capsule PO SCH ×2 (08:26→20:14)
[2018-02-14] MEDS: ASPIRIN EC 81 MG TABLET PO SCH (08:26)
[2018-02-14] MEDS ORDERED: QUEtiapine Tab 25 MG TAB PO SCH (09:00)
[2018-02-14 14:36] LABS: BLOOD UREA NITROGEN 3 mg/dL (7-22); BUN/CREATININE RATIO 4.28 (6-20)
[2018-02-14] MEDS ORDERED: CYANOCOBALAMIN 1000 MCG/1 ML VIAL IM SCH (16:00)
[2018-02-14] MEDS ORDERED: TAMSULOSIN 0.4 MG CAPSULE PO ONE (16:41)
--- NOTE | 2018-02-14 16:46 | PDOC(PROG) ---
Date and Time of Service: 02/14/2018, 1640 Interval History: Denies chest pain, shortness breath, nausea or vomiting. As frequently to go. I spoke with the patient's , and, and the patient is much more difficult to manage at home. His memory has significantly worsened. He was in his normal state of health with declining memory function when he became very weak and even more disoriented over the last 36 hours or so and he had several falls. She cannot lift them up. She thinks it's time for him to go to the snf. He's not had any seizures since being on Keppra over the past year or so. Objective : Data - Labs CBC and BMP: 02/13/18 21:05 02/14/18 14:05 Objective : Exam - General General Appearance: No Acute Distress, Cooperative Additional General Exam Details: Vital Signs - Last Taken Temperature 96.7 F L 02/14/18 16:11 Pulse Rate 54 L 02/14/18 16:11 Respiratory Rate 16 02/14/18 16:11 Blood Pressure 140/57 02/14/18 16:11 Pulse Ox 99 02/14/18 16:11 - Eye Eye Exam: No Scleral Icterus - ENT ENT Exam: Mucous Membranes Moist (Bruised upper lip) - Respiratory Respiratory Exam: Clear to Auscultation - Bilaterally, Breathing Non Labored - Cardiovascular Cardiovascular Exam: No Murmur, No Clicks, No Gallops, No Rubs, Irregular Rhythm, Bradycardia, No JVD - GI/Abdominal GI/Abdominal Exam: Normal Bowel Sounds, Non Tender, Non Distended, Soft - Extremities Extremities Exam: No Clubbing Present, No Edema Present, No Cyanosis Present - Neurological Neurological Exam: Alert, No Facial Droop, Speech Intact / Clear, Moves All Extremities Equally Additional Neurological Exam Details: Can state his name, but does not know time or situation. 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) Current Visit: Yes Status: Acute Code(s): E22.2 - Syndrome of inappropriate secretion of antidiuretic hormone (4) Hyponatremia Current Visit: Yes Status: Acute Code(s): E87.1 - Hypo-osmolality and hyponatremia (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 Status: Chronic Code(s): G30.9 - Alzheimer's disease, unspecified; F02.80 - Dementia in other diseases classified elsewhere without behavioral disturbance (6) Bradycardia Current Visit: Yes Status: Acute Code(s): R00.1 - Bradycardia, unspecified (7) BPH (benign prostatic hyperplasia) Current Visit: Yes Status: Acute Code(s): N40.0 - Benign prostatic hyperplasia without lower urinary tract symptoms Qualifiers: Lower urinary tract symptom presence: symptoms present Qualified Code(s): N40.1 - Benign prostatic hyperplasia with lower urinary tract symptoms (8) Coronary artery disease Current Visit: Yes Status: Chronic Code(s): I25.10 - Atherosclerotic heart disease of [place] coronary artery without angina pectoris Qualifiers: Coronary Disease-Associated Artery/Lesion type: bypass graft [place] vs. transplanted heart: [place] heart Associated angina: without angina Qualified Code(s): I25.810 - Atherosclerosis of coronary artery bypass graft(s) without angina pectoris - Assessment / Plan Additional Assessment/Plan Details: The patient likely has been following because of his SIADH and low sodium, and it improved. Although it has worsened through the day. Stop normal saline at this point. Fluid restriction. Discontinue Seroquel and an antidepressant which are likely contributing. Keppra could be causing this as well, but it has prevented seizures like to hold off on discontinuation of that medication at this point. SIADH is likely with a high urine sodium, urine osmolality pending, low BUN, and I will check a uric acid tomorrow. Cortisol level is pending and thyroid functions were normal Replace vitamin B12 as it appears there is a deficiency there. Flomax of the added for urinary retention. I did speak with the patient's , who told me that he did proceed with a laser TURP within the last year and a half, but was in urinary retention yesterday. I'll keep the Mott in for a few days and then try to discontinue on Flomax. PT and OT. Probably will need to pursue snf placement. No evidence or signs of agitated or behavioral disturbances in setting of dementia. No sign of infection. Given fall and abrasion tobacco get a lumbar spine series and a pelvic x-ray although I anticipate no fractures given no pain. The atrial fibrillation with decreased ventricular response could be something that would require pacemaker if symptomatic, but the patient's states that he would not want a pacemaker and his son confirms this. They are not interested in pursuing procedural intervention. In fact, they describe the patient who has had decreasing activities of daily living, minimally ambulates in the home, and has minimal quality of life. They state his health is not good at all. Patient's plan of care was discussed with his and son at bedside who agreed with the plan. They confirmed DO NOT RESUSCITATE.
[2018-02-15 04:51] LABS: BLOOD UREA NITROGEN 7 mg/dL (7-22); Uric Acid 2.1 mg/dl (3.8-8.5)
[2018-02-15] MEDS: LEVOTHYROXINE 75 MCG TABLET PO SCH (05:12)
[2018-02-15] MEDS: Esomeprazole DR 20mg Capsule PO SCH ×2 (08:26→20:02)
[2018-02-15] MEDS: LevETIRAcetam Tab 500 MG TABLET PO SCH ×2 (08:26→20:02)
[2018-02-15] MEDS: ASPIRIN EC 81 MG TABLET PO SCH (08:26)
[2018-02-15] MEDS: TAMSULOSIN 0.4 MG CAPSULE PO SCH (08:27)
[2018-02-15] MEDS: MAGNESIUM 400 MG/5 ML - 30 ML (MILK OF MAGNESIA) PO SCH (09:46)
--- NOTE | 2018-02-15 13:31 | DI ---
AP PELVIS, 02/15/2018 6:52 AM : Clinical History: Injury. The patient fell. Previous Exam: 09/29/2013. There is no soft tissue abnormality. The bony structures of the pelvis are normal. 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 Severe arthritic changes are present in the right hip. There is osteoporosis. Readin. No definite fracture of the pelvis is identified. The right hip shows severe arthritic change. 2. Osteoporosis. If symptoms persist at the affected site, then follow-up either with films in 7-10 days, or with a CT scan of the pelvis.
--- NOTE | 2018-02-15 14:37 | DI ---
LUMBAR SPINE SERIES, 02/15/2018 6:52 AM: Clinical History: Injury. The patient fell. Previous Exam: None at this facility. 3 routine views are submitted. The vertebral bodies are of normal height and size. No acute fractures are identified. There is severe disc space narrowing at L1-2 and L5-S1 with mild narrowing at L2-3 t hrough L4-5. L3-4 has a grade 1 reverse spondylolisthesis. The pedicles and posterior elements are un remarkable. Both SI joints are normal. Readin. No acute fracture of the lumbar spine is identified. 2. There is disc space narrowing at every lumbar level. 3. Grade 1 reverse spondylolisthesis at L3-4.
--- NOTE | 2018-02-15 15:07 | PDOC(PROG) ---
Date and Time of Service: 02/15/2018, 1506 Interval History: No completes of chest pain or shortness of breath. He states that he wants to go home. Discussed with his . He still weak. Not ambulating very well. Patient states that he is very confused. Objective : Data - Labs CBC and BMP: 02/13/18 21:05 02/15/18 04:11 - Imaging X-Ray Status: Report Reviewed by Me (X-ray reports noted for pelvis and lumbar spine. No fractues) Objective : Exam - General General Appearance: No Acute Distress, Cooperative Additional General Exam Details: Vital Signs - Last Taken Temperature 96.8 F 02/15/18 13:00 Pulse Rate 61 02/15/18 13:00 Respiratory Rate 18 02/15/18 13:00 Blood Pressure 134/62 02/15/18 13:00 Pulse Ox 95 02/15/18 13:00 - Eye Eye Exam: No Scleral Icterus - ENT ENT Exam: Mucous Membranes Moist Additonal ENT Exam Details: Swollen upper lip has improved. Swelling is down - Respiratory Respiratory Exam: Clear to Auscultation - Bilaterally, Breathing Non Labored - Cardiovascular Cardiovascular Exam: RRR, No Murmur, No Clicks, No Gallops, No Rubs, No JVD - GI/Abdominal GI/Abdominal Exam: Normal Bowel Sounds, Non Tender, Non Distended, Soft - Extremities Extremities Exam: No Clubbing Present, No Edema Present, No Cyanosis Present - Neurological Neurological Exam: Alert, No Facial Droop, Speech Intact / Clear, Moves All Extremities Equally Assessment and Plan - Patient Problems (1) Altered mental status Current Visit: Yes Status: Acute Code(s): R41.82 - Altered mental status, unspecified Qualifiers: Altered mental status type: delirium Qualified Code(s): R41.0 - Disorientation, unspecified (2) Urinary retention Current Visit: Yes Status: Acute Code(s): R33.9 - Retention of urine, unspecified (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) Current Visit: Yes Status: Acute Code(s): E22.2 - Syndrome of inappropriate secretion of antidiuretic hormone (4) Hyponatremia Current Visit: Yes Status: Acute Code(s): E87.1 - Hypo-osmolality and hyponatremia (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 Status: Chronic Code(s): G30.9 - Alzheimer's disease, unspecified; F02.80 - Dementia in other diseases classified elsewhere without behavioral disturbance (6) Bradycardia Current Visit: Yes Status: Acute Code(s): R00.1 - Bradycardia, unspecified (7) BPH (benign prostatic hyperplasia) Current Visit: Yes Status: Acute Code(s): N40.0 - Benign prostatic hyperplasia without lower urinary tract symptoms Qualifiers: Lower urinary tract symptom presence: symptoms present (8) Coronary artery disease Current Visit: Yes Status: Chronic Code(s): I25.10 - Atherosclerotic heart disease of [place] coronary artery without angina pectoris Qualifiers: Coronary Disease-Associated Artery/Lesion type: bypass graft [place] vs. transplanted heart: [place] heart Associated angina: without angina Qualified Code(s): I25.810 - Atherosclerosis of coronary artery bypass graft(s) without angina pectoris - Assessment / Plan Additional Assessment/Plan Details: Continue fluid restriction. Sodium is still about the same at 123. May need to consider salt tablets. His mental status is significantly improved and probably at baseline with his underlying dementia. Given his seizure history, I do not think we can stop the Keppra at this time. Hopefully discontinue the Mott catheter tomorrow and continue Flomax. [facility] placement still pending. Minor standing is a [facility] will evaluate the patient tonight. I'm hoping to have an answer tomorrow. Continue PT and OT in the meantime. Very reassured by no fractures on pelvic and lumbar spine films. He is not complaining of any pain in these areas.
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
--- NOTE | 2018-02-15 15:50 | OTI REPORT ---
Thank you for the referral of Trell Rodriguez. He was seen on 02/15/18 for an occupational therapy inpatient evaluation secondary to weakness and deconditioning. SUBJECTIVE: The patient is an 82-year-old male. The patient reports he is not feeling very well. His was present during occupational therapy evaluation. She did report that on Wednesday night he got up out of bed and had a fall. She was unable to get him upright. She did get him sitting and then called her children to come help get him up. The patient's reports that her then proceeded to have several more falls. The patient's reports that the patient has a history of falls. At prior level of function, the patient's reports that he is able to mainly perform dressing tasks by himself with a little bit of assistance for lower extremity dressing to include socks and shoes. The patient does require multimedia author care due to his cognitive functioning. The patient has dementia. The patient denies pain and just reports he is not feeling very well. The patient does agree to participate in occupational therapy evaluation at this time. The patient did not ambulate with an adaptive device at prior level of function at home. His reports that she is no longer able to take care of him at this time. PAST MEDICAL HISTORY: Past medical history can be found in the patient's medical record. OBJECTIVE FINDINGS: Bed mobility: The patient demonstrated the ability to complete bed mobility tasks including moving from supine to sitting edge of bed with minimal assistance. Transfers: The patient required moderate assistance to perform sit to stand transfer. Ambulation: The patient demonstrated the ability to ambulate 20 feet with mod assist x2 to maintain balance in upright position. Range of motion: The patient demonstrated upper extremity range of motion for the shoulders that was approximately 50% of full for shoulder abduction and shoulder flexion. Upper extremity range of motion for the elbow, hand, and wrist was within a functional limits. Strength: Upper extremity strength is 3+/5 within the patient's available range of motion bilaterally for the shoulder, elbow, hand, and wrist. Activities of daily living: The patient required maximum assistance to don socks and shoes and he required constant verbal cueing for safety. ASSESSMENT: The patient may benefit from skilled care at this time to increase upper extremity strength, and increase activity tolerance in order to increase safety and overall level of function. The patient's rehab potential at this time is fair due to the patient's past medical history and cognitive functioning. The patient's did report that she is unable to care for her and is hoping to get the patient admitted to the [facility]. Short-Term Goals: To be met by discharge from inpatient: Patient will increase bilateral upper extremity strength by one manual muscle grade. Patient will improve activity tolerance in order to stand x5 minutes at the sink in order to complete grooming tasks. Patient will be able to complete functional transfers to include bed and toilet transfers with contact guard assistance only with zero losses of balance. Patient will be able to complete lower extremity dressing with minimal assistance. Patient will be able to complete upper extremity dressing tasks to include set up with minimal assistance. Patient will increase standing balance, functional transfers, and strength in order to complete showering task with minimal assistance. Long-Term Goals: To be met following discharge from inpatient: Patient will return to prior level of functioning with assistance as needed for ADLs tasks due to cognitive functioning. Patient will continue with therapy upon discharge from hospital. TREATMENT PLAN: Patient will be seen B.I.D during the week and one time per day over the weekend as an inpatient to address the above goals and objectives. INITIAL TREATMENT: Treatment today consisted of the initial evaluation activities only. EMMA
--- NOTE | 2018-02-15 16:19 | OT.PROG ---
Progress Note Progress Note: Occupational Therapy: S: Pt. reports that he is not feeling well this afternoon, however reports that he needs to use the restroom. O: Pt was seen at 1530 for skilled occupational therapy with a focus on functional activities. Pt. performed a functional transfer from sitting in chair with min. A and ambulated 15' with CGA for safety to bathroom. Pt. completed toilet transfer with verbal cues for safety and he refused to complete toilet hygiene tasks and required total assist. Pt. then ambulated back to his chair X 15' with CGA. Pt. participated in 1 upper extremity strengthening task before reporting that he was too tired and that he did not want to participate anymore. Pt. was left with call light in place. A: Pt. was impulsive at times with functional mobility tasks and fatigued following 15' of ambulation. Pt. continues to benefit from skilled care at this time to increase strength, safety, and overall ADL performance. P: Continue per POC. LARRY Flowers/Deb
--- NOTE | 2018-02-15 16:20 | PT.PROG ---
Progress Note Progress Note: Patient refused therapy this afternoon.
[2018-02-15] MEDS ORDERED: Sodium Chloride Tab 1 TAB TAB PO ONE (19:37)
[2018-02-15] MEDS: Sodium Chloride Tab 1 TAB TAB PO SCH (19:59)
[2018-02-15] MEDS ORDERED: MAGNESIUM 400 MG/5 ML - 30 ML (MILK OF MAGNESIA) PO SCH (21:00)
[2018-02-15] MEDS ORDERED: Magnesium Sulfate 2gm (Premix) 2 GM/50 ML BAG IV ONE (22:30)
[2018-02-16] MEDS: LEVOTHYROXINE 75 MCG TABLET PO SCH (04:39)
[2018-02-16 05:29] LABS: BLOOD UREA NITROGEN 9 mg/dL (7-22)
[2018-02-16] MEDS: ASPIRIN EC 81 MG TABLET PO SCH (09:02)
[2018-02-16] MEDS: TAMSULOSIN 0.4 MG CAPSULE PO SCH (09:02)
[2018-02-16] MEDS: Sodium Chloride Tab 1 TAB TAB PO SCH ×2 (09:02→20:46)
[2018-02-16] MEDS: LevETIRAcetam Tab 500 MG TABLET PO SCH ×2 (09:02→20:46)
[2018-02-16] MEDS: Esomeprazole DR 20mg Capsule PO SCH ×2 (09:02→20:46)
--- NOTE | 2018-02-16 09:54 | PT.PROG ---
Progress Note Progress Note: S: Trell was sitting up in his chair upon PT arrival. Pt agreed to participate with u/e exercises as he refused to allow the reclined leg part of his chair to be lowered. O: Tx consisted of instruction in ther ex with 10x each of the following: rows, B biceps, B triceps, B extension, around the world (all u/e activities performed with red tband); ball squeezes and resisted hip abd with red tband. A: Pt reported during exercises that he did not want to participate with strengthening activities, so we instructed pt on as many exercises as he would participate with. P: Continue per POC.
[2018-02-16] MEDS: MAGNESIUM 400 MG/5 ML - 30 ML (MILK OF MAGNESIA) PO SCH ×2 (11:05→19:55)
--- NOTE | 2018-02-16 14:51 | PDOC(PROG) ---
Date and Time of Service: 02/16/2018, 1449 Interval History: No chest pain and no shortness breath. Is much more alert, conversant, and following commands well. He is doing minimal exercises with therapy now. Patient's was present for discussion. At this time, I like to stop catheter and continue salt tablet. I think the patient's dementia will make it very difficult for him to comply with fluid restriction. Objective : Data - Labs CBC and BMP: 02/13/18 21:05 02/16/18 04:32 Objective : Exam - General General Appearance: No Acute Distress, Cooperative Additional General Exam Details: Vital Signs - Last Taken Temperature 97.4 F 02/16/18 12:03 Pulse Rate 66 02/16/18 12:03 Respiratory Rate 20 02/16/18 12:03 Blood Pressure 126/59 02/16/18 12:03 Pulse Ox 97 02/16/18 12:03 - Eye Eye Exam: No Scleral Icterus - ENT ENT Exam: Mucous Membranes Moist - Respiratory Respiratory Exam: Clear to Auscultation - Bilaterally, Breathing Non Labored - Cardiovascular Cardiovascular Exam: RRR, No Murmur, No Clicks, No Gallops, No Rubs, No JVD - GI/Abdominal GI/Abdominal Exam: Normal Bowel Sounds, Non Tender, Non Distended, Soft - Extremities Extremities Exam: No Clubbing Present, No Edema Present, No Cyanosis Present - Neurological Neurological Exam: Alert, No Facial Droop, Speech Intact / Clear, Moves All Extremities Equally Assessment and Plan - Patient Problems (1) Altered mental status Current Visit: Yes Status: Acute Code(s): R41.82 - Altered mental status, unspecified Qualifiers: Altered mental status type: disorientation Qualified Code(s): R41.0 - Disorientation, unspecified (2) Urinary retention Current Visit: Yes Status: Acute Code(s): R33.9 - Retention of urine, unspecified (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) Current Visit: Yes Status: Acute Code(s): E22.2 - Syndrome of inappropriate secretion of antidiuretic hormone (4) Hyponatremia Current Visit: Yes Status: Acute Code(s): E87.1 - Hypo-osmolality and hyponatremia (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 Status: Chronic Code(s): G30.9 - Alzheimer's disease, unspecified; F02.80 - Dementia in other diseases classified elsewhere without behavioral disturbance (6) Bradycardia Current Visit: Yes Status: Acute Code(s): R00.1 - Bradycardia, unspecified (7) BPH (benign prostatic hyperplasia) Current Visit: Yes Status: Acute Code(s): N40.0 - Benign prostatic hyperplasia without lower urinary tract symptoms Qualifiers: Lower urinary tract symptom presence: symptoms present (8) Coronary artery disease Current Visit: Yes Status: Chronic Code(s): I25.10 - Atherosclerotic heart disease of [place] coronary artery without angina pectoris Qualifiers: Coronary Disease-Associated Artery/Lesion type: bypass graft [place] vs. transplanted heart: [place] heart Associated angina: without angina Qualified Code(s): I25.810 - Atherosclerosis of coronary artery bypass graft(s) without angina pectoris - Assessment / Plan Additional Assessment/Plan Details: The patient is doing much better off of Seroquel and Celexa. His sodium has improved to 128. I have him on a salt tablet as I do not think he can completely comply with a fluid restriction. His mental status has improved. He is alert, conversant, and can follow commands. The patient is weak and has frequent falls at home. His cannot manage at home. We are still awaiting halfway placement. He does have dementia, but there are no behavioral disturbances at this time. Discontinued Mott catheter and try a voiding trial on the Flomax. Hopefully we do not have to replace that. Blood pressures noted but we will try to hold off on additional medications at this time.
[2018-02-16] MEDS ORDERED: LIDOCAINE HCL 2 % 10 ML JELLY URO-JECT TOPICAL PRN (21:52)
[2018-02-17] MEDS: LEVOTHYROXINE 75 MCG TABLET PO SCH (04:58)
[2018-02-17 05:40] LABS: BLOOD UREA NITROGEN 9 mg/dL (7-22)
[2018-02-17] MEDS ORDERED: METHYLPREDNISOLONE 4 MG TAB DOSE PACK(DAY 1 0700) PO SCH (07:00)
[2018-02-17] MEDS: Sodium Chloride Tab 1 TAB TAB PO SCH ×2 (08:34→19:59)
[2018-02-17] MEDS: LevETIRAcetam Tab 500 MG TABLET PO SCH ×2 (08:34→19:59)
[2018-02-17] MEDS: ASPIRIN EC 81 MG TABLET PO SCH (08:34)
[2018-02-17] MEDS: Esomeprazole DR 20mg Capsule PO SCH ×2 (08:35→19:59)
[2018-02-17] MEDS: TAMSULOSIN 0.4 MG CAPSULE PO SCH (08:35)
[2018-02-17] MEDS ORDERED: MAGNESIUM 400 MG/5 ML - 30 ML (MILK OF MAGNESIA) PO SCH (09:00)
--- NOTE | 2018-02-17 10:18 | OT.PROG ---
Progress Note Progress Note: S: Pt stated that, "the way I feel, there's no reason to live at all," during transportation to therapy gym. Pt stated a desire to return home multiple times. O: Pt participated in OT-session to address dressing, toileting and toilet hygiene, dynamic standing balance, and static standing balance. Pt successfully completed toileting w/ SBA and toilet hygiene w/ mod A. Pt required min A for LE donning and was I w/ set-up for UE dressing. Pt AMB 10ft to w/c and was transported to therapy gym. Pt completed dynamic standing tolerance activities w / ball toss activity, boxing, and dynamic reaching w/ coins w/ SBA w/ gait belt. Pt reported second BM and was SBA for toileting w/ mod A for toilet hygiene. Pt required min v/c for standing on own without therapist SBA. A: Pt standing balance and tolerance required little assistance from second therapist at SBA/CGA. Pt showed no problems w/ sit to stand transfers. Pt did show decreased safety awareness w/ gait belt and required verbal reminders for safety precautions such as reminders to not stand on own w/o therapist nearby. P: Cont. skilled OT to address dynamic and static standing balance w/ functional skills and during reaching tasks.
[2018-02-17] MEDS ORDERED: METHYLPREDNISOLONE 4 MG TAB DOSE PACK(DAY 1-4 1230) PO SCH (12:00)
[2018-02-17] MEDS ORDERED: DOXAZOSIN 2 MG TABLET PO ONE (14:24)
[2018-02-17] MEDS ORDERED: IBUPROFEN 600 MG TABLET PO PRN (14:29)
--- NOTE | 2018-02-17 14:29 | PDOC(PROG) ---
Date and Time of Service: 02/17/2018, 1425 Interval History: No complaints of chest pain, does complain of right arm pain. I'll go ahead and get an x-ray of that. No nausea or vomiting. His mental status is at baseline with dementia. No shortness of breath. Objective : Data - Labs CBC and BMP: 02/13/18 21:05 02/17/18 04:48 Objective : Exam - General General Appearance: No Acute Distress, Cooperative Additional General Exam Details: Vital Signs - Last Taken Temperature 97.4 F 02/17/18 12:50 Pulse Rate 80 02/17/18 12:50 Respiratory Rate 18 02/17/18 12:50 Blood Pressure 148/65 02/17/18 12:50 Pulse Ox 97 02/17/18 12:50 - Eye Eye Exam: No Scleral Icterus - ENT ENT Exam: Mucous Membranes Moist - Respiratory Respiratory Exam: Clear to Auscultation - Bilaterally, Breathing Non Labored - Cardiovascular Cardiovascular Exam: RRR, No Murmur, No Clicks, No Gallops, No Rubs, No JVD - GI/Abdominal GI/Abdominal Exam: Normal Bowel Sounds, Non Tender, Non Distended, Soft - Extremities Extremities Exam: No Clubbing Present, No Edema Present, No Cyanosis Present Additional Extremities Exam Details: Complains of tenderness on his right arm - Neurological Neurological Exam: Alert, No Facial Droop, Speech Intact / Clear, Moves All Extremities Equally Assessment and Plan - Patient Problems (1) SIADH (syndrome of inappropriate ADH production) Current Visit: Yes Status: Acute Code(s): E22.2 - Syndrome of inappropriate secretion of antidiuretic hormone (2) Altered mental status Current Visit: Yes Status: Acute Code(s): R41.82 - Altered mental status, unspecified Qualifiers: Altered mental status type: disorientation Qualified Code(s): R41.0 - Disorientation, unspecified (3) Urinary retention Current Visit: Yes Status: Acute Code(s): R33.9 - Retention of urine, unspecified (4) Hyponatremia Current Visit: Yes Status: Acute Code(s): E87.1 - Hypo-osmolality and hyponatremia (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 Status: Chronic Code(s): G30.9 - Alzheimer's disease, unspecified; F02.80 - Dementia in other diseases classified elsewhere without behavioral disturbance (6) Bradycardia Current Visit: Yes Status: Acute Code(s): R00.1 - Bradycardia, unspecified (7) BPH (benign prostatic hyperplasia) Current Visit: Yes Status: Acute Code(s): N40.0 - Benign prostatic hyperplasia without lower urinary tract symptoms Qualifiers: Lower urinary tract symptom presence: symptoms present (8) Coronary artery disease Current Visit: Yes Status: Chronic Code(s): I25.10 - Atherosclerotic heart disease of [place] coronary artery without angina pectoris Qualifiers: Coronary Disease-Associated Artery/Lesion type: bypass graft [place] vs. transplanted heart: [place] heart Associated angina: without angina Qualified Code(s): I25.810 - Atherosclerosis of coronary artery bypass graft(s) without angina pectoris - Assessment / Plan Additional Assessment/Plan Details: Given increased blood pressures and BPH and urinary obstruction, we had to replace the Mott catheter. We will also start Cardura to help with blood pressure and prostate issues along with the Flomax. I'll get an x-ray of the right arm. Tylenol and/or Motrin for pain. There was a pink tinge to the patient's catheter. A couple during therapy. I think this will clear up. Still awaiting care home placement. Hopefully will have an answer soon. I do think the patient needs care home for continued physical therapy and occupational therapy. I think he is a high fall risk at home. Discussed with earlier today.
[2018-02-17] MEDS ORDERED: HYDROmorphone 2 MG/1 ML IVP ONE (16:24)
[2018-02-17] MEDS ORDERED: KETOROLAC 15 MG/1 ML VIAL IVP PRN (17:09)
[2018-02-17] MEDS ORDERED: METHYLPREDNISOLONE 4 MG TAB DOSE PACK(DAY 1-3 1730) PO SCH (17:30)
--- NOTE | 2018-02-17 17:35 | DI ---
RIGHT SHOULDER, 02/17/2018 2:31 PM: Clinical History: Right arm and shoulder pain. Previous Exam: None at this facility. 2 views are submitted. There is distraction between the lateral head of the clavicle and the acromion suggesting an AC joint separation. The history indicates that this patient did not have any surgery to the shoulder. Arthritic changes are present in the glenohumeral joint and there are erosive change s on the undersurface of the acromion suggesting this patient has a chronic rotator cuff tear. The vi sualized portions of the right lung are normal. The apex is not visualized. Readin. There is distraction of the AC joint and this is suggestive for an AC joint separation. No acute fractures are identified. 2. Arthritic changes are present in the glenohumeral joint and erosion on the undersurface of the ac romion suggest an underlying chronic rotator cuff tear.
--- NOTE | 2018-02-17 17:36 | DI ---
RIGHT HUMERUS, 02/17/2018 2:31 PM: Clinical History: Right arm and shoulder pain. Previous Exam: None at this facility. AP and lateral views are submitted. There is no acute soft tissue, osseous, or joint abnormality. Reading: Normal right humerus exam.
[2018-02-17] MEDS: MAGNESIUM 400 MG/5 ML - 30 ML (MILK OF MAGNESIA) PO SCH (18:28)
[2018-02-17] MEDS ORDERED: METHYLPREDNISOLONE 4 MG TAB DOSE PACK(DAY 1-2 2100) PO SCH (21:00)
[2018-02-18] MEDS: LEVOTHYROXINE 75 MCG TABLET PO SCH (05:07)
[2018-02-18] MEDS ORDERED: METHYLPREDNISOLONE 4 MG TAB DOSE PACK(DAY 2-6 0700) PO SCH (07:00)
[2018-02-18] MEDS ORDERED: METHYLPREDNISOLONE 4 MG TAB DOSE PACK(DAY 1 0700) PO SCH (07:00)
[2018-02-18 08:26] VITALS: BP 154/64; RESP 16; TEMP 97.7; O2SAT 99
[2018-02-18] MEDS: LevETIRAcetam Tab 500 MG TABLET PO SCH (08:36)
[2018-02-18] MEDS: ASPIRIN EC 81 MG TABLET PO SCH (08:36)
[2018-02-18] MEDS: Esomeprazole DR 20mg Capsule PO SCH (08:37)
[2018-02-18] MEDS: Sodium Chloride Tab 1 TAB TAB PO SCH (08:37)
[2018-02-18] MEDS: TAMSULOSIN 0.4 MG CAPSULE PO SCH (08:37)
[2018-02-18] MEDS ORDERED: METHYLPREDNISOLONE 4 MG TAB DOSE PACK PO SCH (09:00)
[2018-02-18] MEDS ORDERED: DOXAZOSIN 2 MG TABLET PO SCH (09:00)
--- NOTE | 2018-02-18 10:51 | DCSUMMARY ---
Hospitalization Summary Hospital Course: Final Discharge Diagnosis: Hyponatremia, SIADH, urinary retention, severe dementia Diagnostic Data, Laboratory Data, and Procedures of Signifigance: CBC and BMP 02/13/18 21:05 02/17/18 04:48 Past Medical History Medical History: 1. Atrial fibrillation, rate controlled and on aspirin for stroke prevention. 2. Depression. 3. GERD. 4. History of DVTs years ago. 5. History of orthostatic hypertension. 6. History of gout. 7. Hypothyroidism. 8. BPH for which he had surgery. 9. Diagnosed with DVT on . 10. Coronary artery disease with CABG June 2015, stent in December 2015, off of Plavix. 11. BPH with history of recurrent urinary catheterizations. Not on any prostate medications at this time. In urinary retention tonight. 12. Dementia. 13. Left cerebral hemispheric atrophy, possibly congenital Surgical History: 1. History of for surgery on his shoulder. 2. History of prostate surgery. 3. Left knee replacement. 4. Left hip replacement. 5. Cholecystectomy. 6. Status post CABG June 2015. 7. Stents 2, once in August and then once in December 2015. Pertinent Family History: On my review of prior history and physicals, positive for heart disease Past Social History: Does not smoke or drink. for 20 years with his current . Has 6 children from prior marriages. 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 Lives with his here in [place], this was all from prior admissions and reviewed. Could not provide any details tonight. Course of Hospitalization: This very nice 82-year-old the gentleman with a history of multiple the recurrent urinary infections with chronic indwelling Mott catheter secondary to enlarged prostate known history of dementia and delirium in the past as well brought him to the hospital because of worried about is a lethargic state and the weakness he was also found to have a low-sodium he did quite well throughout his hospital stay his Mott catheter was replaced he was also started on Cardura and Flomax. Was complaining of right shoulder pain Dr. Houston evaluated the patient no injections recommended at this time Medrol Dosepak was prescribed by Dr. Baltazar. Patient unable take care of himself and his is not able to do it patient will be discharged to [facility] for placement today. His low-sodium is from the patient's SIADH and needs to continue Keppra for seizure control. He did have a laser TURP done with Dr. Nicholson and has a follow-up with him to consider for suprapubic catheter placement if necessary patient is in good spirits at time of discharge spoke to nursing and his [facility] van is here to pick him up On the date of discharge, the patient was examined: Gen.: No acute distress, alert, nontoxic Heart: Regular rate and rhythm, no murmurs, clicks, gallops, or rubs Lungs: Clear to auscultation bilaterally, breathing is nonlabored Abdomen/GI: Normal tones on auscultation, soft, nontender, nondistended Musculoskeletal/extremities: No clubbing, cyanosis, or edema Vitals reviewed and are listed below Vital Signs (24 hrs) Temp Pulse Pulse Resp BP Pulse Ox 02/18/18 08:25 97.7 F 83 16 154/64 99 02/18/18 07:00 21 02/18/18 06:44 89 02/18/18 04:44 96.9 F 67 20 162/75 95 02/18/18 00:42 97.0 F 75 16 139/80 98 02/17/18 20:35 97.3 F 76 16 140/65 95 Assessment and Plan: 1. As per discharge assessments above 2. Disposition: 3. Condition on discharge, stable and improved. 4. Diet: regular diet 5. Activities: resume normal activities 6. Follow-Up: 1. PCP 2. 7. Medications at the Time of Discharge: Home Medications 3 Medication Instructions Recorded Confirmed Type Aspirin [Aspir 81] 81 mg PO DAILY tab 05/22/15 02/13/18 History nitroglycerin 0.4 mg sublingual 0.4 mg SL Q5-15M PRN 04/29/17 02/13/18 History tablet alprazolam 0.5 mg tablet 0.5 mg PO QID PRN #120 tab 09/24/17 02/13/18 Rx levothyroxine 150 mcg tablet 150 mcg PO QDAY #30 tab 11/01/17 02/13/18 Rx quetiapine 25 mg tablet 75 mg PO QHS #270 tab 11/25/17 02/13/18 Rx citalopram 10 mg tablet 10 mg PO BID #90 tab 12/13/17 02/13/18 Rx esomeprazole magnesium 20 mg 20 mg PO BID #90 cap 12/13/17 02/13/18 Rx capsule,delayed release levetiracetam 1,000 mg tablet 1,000 mg PO BID #180 tab 12/13/17 02/13/18 Rx quetiapine 50 mg tablet 50 mg PO QDAY #90 tab 01/03/18 02/13/18 Rx ALPRAZolam Tab [Xanax Tab] 0.5 mg PO QID PRN #10 tab 02/18/18 Rx Acetaminophen [Tylenol] 650 mg PO Q6H PRN tab 02/18/18 Rx Docusate Sodium [Colace] 100 mg PO BID PRN cap 02/18/18 Rx Doxazosin Mesylate [Cardura] 2 mg PO DAILY tab 02/18/18 Rx Ibuprofen [Motrin] 600 mg PO Q8H PRN tab 02/18/18 Rx methylPREDNISolone Dose Pack 4 mg PO BEDTIME gwen 02/18/18 Rx [Medrol Dose Pack] methylPREDNISolone Dose Pack 4 mg PO BEDTIME gwen 02/18/18 Rx [Medrol Dose Pack] methylPREDNISolone Dose Pack 4 mg PO DAILY@0700 gwen 02/18/18 Rx [Medrol Dose Pack] methylPREDNISolone Dose Pack 4 mg PO DAILY@1200 gwen 02/18/18 Rx [Medrol Dose Pack] methylPREDNISolone Dose Pack 4 mg PO DAILY@1730 [facility] 02/18/18 Rx [Medrol Dose Pack] methylPREDNISolone Dose Pack 8 mg PO BEDTIME gwen 02/18/18 Rx [Medrol Dose Pack] 8. Time, care, counseling and coordination of care for this discharge is greater than 30 minutes. Exam - Vitals Vital Signs: Vital Signs Temperature 97.7 F Temperature Source Temporal Artery Scan Pulse Rate [Apical] 89 Pulse Rate [Pulse Oximeter] 83 Pulse Rate 70 Respiratory Rate 16 Blood Pressure [Left Arm] 154/64 Blood Pressure [Right Arm] 166/78 Blood Pressure 158/73 Pulse Ox 99 Oxygen Flow Rate 1 Oxygen Delivery Method Room Air Height 6 ft Weight 183 lb 4.8 oz
[2018-02-18] MEDS ORDERED: METHYLPREDNISOLONE 4 MG TAB DOSE PACK(DAY 1-4 1230) PO SCH (12:00)
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
--- NOTE | 2018-02-18 16:36 | PT AM DAY ---
Diagnosis : Weakness AM - Physical Therapy S: The patient reports no new changes. O: The patient was seen for NuStep activities, transfers, and ambulatory activities. The patient was very impulsive and his balance was very poor. A: The patient was very impulsive and his balance was very poor today. P: Continue seeing patient BID during the week and one time per day over the weekend until discharge. MTDD
--- NOTE | 2018-02-18 16:42 | OT AM DAY ---
Diagnosis : Weakness AM - Occupational Therapy S: The patient states he is feeling better today than yesterday. The patient continually asked "what's next?" during session and had trouble following directions. O: The patient participated in OT session to address showering, dressing, toileting, and toilet hygiene. The patient completed sit to stand transfer with stand by assistance and ambulated to bathroom with contact guard assist. The patient required one verbal cue for removal of shorts before bowel movement. The patient completed toilet hygiene with one verbal cue and donned shorts in drawers with stand by assist. The patient ambulated 75 feet with mod verbal cues for orientation in hallways from hospital room to shower room. The patient requires verbal cues for sequencing of removing clothes before showering. The patient required min assist for showering and mod verbal cues for sequencing of showering steps. The patient successfully donned all clothes when prompted. The patient stood without warning twice during shower and had to be reminded to sit down due to compromised balance. The patient ambulated 25 feet from shower room with walker with stand by assist. A: The patient showed reduced ability to follow sequencing with ADLs and could not orient self to task without further prompts by therapist. The patient showed impulsivity when standing and had difficulty following commands or directions; this may be due to cognitive or auditory declines. P: Continue seeing patient BID during the week and one time per day over the weekend for to address safety precautions during ADL tasks, specifically during dynamic standing balance activities. Dictated by: LEAH Gross Supervised by: CESAR Low/Deb CARTER
[2018-02-18] MEDS ORDERED: METHYLPREDNISOLONE 4 MG TAB DOSE PACK(DAY 1-3 1730) PO SCH (17:30)
[2018-02-18] MEDS ORDERED: METHYLPREDNISOLONE 4 MG TAB DOSE PACK(DAY 1-2 2100) PO SCH (21:00)
[2018-02-19] MEDS ORDERED: METHYLPREDNISOLONE 4 MG TAB DOSE PACK(DAY 2-6 0700) PO SCH (07:00)
[2018-02-19] MEDS ORDERED: METHYLPREDNISOLONE 4 MG TAB DOSE PACK(DAY 3-5 2100) PO SCH (21:00)
[2018-02-20] MEDS ORDERED: METHYLPREDNISOLONE 4 MG TAB DOSE PACK(DAY 3-5 2100) PO SCH (21:00)
== END 2018-02-18 11:14 | DRG 644 ==
LOC: ER 20:35 → MED/SURG 22:38
PROVIDERS: ADMIT Family Medicine; ATTEND Family Medicine